=== PATIENT | female | born 1935 | race African-American/Black ===

== ENCOUNTER 2019-01-26 20:48 | Inpatient (IN) ==
[2019-01-26] MEDS ORDERED: Ipratropium/Albuterol Neb 3 ML IH ONE (21:14)
--- NOTE | 2019-01-26 21:14 | Emergency Department Note ---
Disposition Clinical Impression: Congestive heart failure Disposition: Admitted As Inpatient Condition: Fair General Adult HPI - General Chief complaint: ED Shortness of Breath/Dyspnea Stated complaint: CARMELA Time Seen by Provider: 01/26/19 20:57 Source: patient Limitations: no limitations - History of Present Illness Pain Scale: 0 - Related Data Home Medications Medication Instructions Recorded Confirmed Aspirin 81 mg PO DAILY 03/23/16 01/27/19 Clopidogrel [Plavix] 75 mg PO DAILY 03/23/16 03/23/16 Lansoprazole [Prevacid] 30 mg PO DAILY 03/23/16 01/27/19 Simvastatin [Zocor] 10 mg PO DAILY 03/23/16 01/27/19 Tizanidine HCl [Zanaflex] 2 mg PO HS 03/23/16 01/27/19 Allopurinol [Zyloprim 100 MG] 100 mg PO DAILY 01/27/19 01/27/19 B Complex W-C No.20/Folic Acid 1 mg PO DAILY 01/27/19 01/27/19 [Virt-Caps Softgel] Cholecalciferol (D-3) [Vitamin D] 1,000 unit PO DAILY 01/27/19 01/27/19 NIFEdipine XL (24 HR) [Procardia 60 mg PO DAILY 01/27/19 01/27/19 XL] Pregabalin [Lyrica] 50 mg PO DAILY 01/27/19 01/27/19 Sertraline [Zoloft] 50 mg PO DAILY 01/27/19 01/27/19 hydrALAZINE [HydrALAZINE] 25 mg PO DAILY 01/27/19 01/27/19 Allergies Allergy/AdvReac Type Severity Reaction Status Date / Time No Known Allergies Allergy Verified 01/27/19 15:29 Past Medical History - Past Medical History Medical history: Reports: arthritis, CVA, dialysis, hyperlipidemia, hypertension, renal disease Surgical history: Reports: hysterectomy Psychiatric history: Reports: no psych history - Social History Smoking Status: Never smoker Smokeless Tobacco Status: No Alcohol use: Reports: none Drug use: Reports: none Physical Exam - General Limitations: no limitations General appearance: alert Course Vital Signs Temperature 98.1 F 01/26/19 20:54 Pulse Rate 89 01/26/19 20:54 Respiratory Rate 28 01/26/19 20:54 Blood Pressure 106/61 01/26/19 20:54 O2 Sat by Pulse Oximetry 97 01/26/19 20:54 Temperature 98.9 F 01/28/19 12:34 Pulse Rate 76 01/28/19 14:00 Respiratory Rate 19 01/28/19 14:25 Blood Pressure 111/54 01/28/19 14:25 O2 Sat by Pulse Oximetry 98 01/28/19 14:25 Oxygen Delivery Oxygen Delivery Nasal Cannula Medical Decision Making - Lab Data Result diagrams: 01/28/19 11:50 01/28/19 03:30 Lab Results 01/26/19 01/26/19 01/26/19 Range/Units 22:30 22:30 22:30 WBC 20.7 H (4.3-11.1) K/mcL RBC 2.92 L (3.82-4.97) M/mcL Hgb 9.3 L (11.5-15.4) g/dL Hct 29.3 L (35.3-44.9) % MCV 100.3 H (83.0-100.0) fL MCH 31.8 (28.0-33.3) pg MCHC 31.7 (31.6-35.5) g/dL RDW 16.1 H (11.5-14.5) % Plt Count 299 (140-400) K/mcL MPV 10.6 (9.4-12.4) fL Immature Gran % 0.5 (0-4) % Seg Neutrophils % 87.5 % Lymphocytes % 5.6 % Monocytes % 5.8 % Eosinophils % 0.5 % Basophils % 0.1 % Neutrophils # 18.1 H (1.6-8.9) K/mcL Lymphocytes # 1.2 (0.6-4.6) K/mcL Monocytes # 1.2 (0.0-1.3) K/mcL Eosinophils # 0.1 (0.0-0.6) K/mcL Basophils # 0.0 (0.0-0.2) K/mcL PT INR APTT D-Dimer (0-500) ng/mLFEU Heparin Anti-Xa, Unfract Sodium 135 L (136-145) mEq/L Potassium 4.6 (3.5-5.1) mEq/L Chloride 94 L (98-107) mEq/L Carbon Dioxide 25 (23-29) mEq/L BUN 55 H (8-23) mg/dL Creatinine 6.01 H (0.60-1.20) mg/dL Est GFR ( Amer) 8 L (> 60) Est GFR (Non-Af Amer) 7 L (> 60) BUN/Creatinine Ratio 9 (6-26) Glucose 148 H (70-105) mg/dL Calculated Osmolality 298 (280-300) Calcium 9.4 (8.6-10.3) mg/dL Total Bilirubin 0.3 (0.3-1.0) mg/dL Direct Bilirubin 0.0 (0.0-0.2) mg/dL Indirect Bilirubin 0.3 (0.0-1.2) mg/dL AST 27 (13-39) Units/L ALT 11 (7-52) Units/L Alkaline Phosphatase 78 (34-104) Units/L Troponin I 1.43 H* (< 0.04) ng/mL B-Natriuretic Peptide (Less than 100) pg/mL Serum Total Protein 8.1 (6.4-8.9) g/dL Albumin 4.2 (3.5-5.7) g/dL Globulin 3.9 H (2.4-3.5) g/dL Albumin/Globulin Ratio 1.1 (1.1-2.2) Urine Color (Yellow) Urine Clarity (Clear) Urine pH (5.0-8.0) pH Units Ur Specific [place] (1.010-1.025) Urine Protein (Neg-Trace) mg/dL Urine Glucose (UA) (Normal) mg/dL Urine Ketones (Negative) mg/dL Urine Blood (Negative) Urine Nitrite (Negative) Urine Bilirubin (Negative) Urine Urobilinogen (Normal) mg/dL Ur Leukocyte Esterase (Negative) Urine Microscopic RBC (0-3) per hpf Urine Microscopic WBC (0-3) per hpf Ur Squamous Epith Cells (None-Few) per lpf Amorphous Sediment (Few) Urine Bacteria (None-Few) per hpf Hyaline Casts (None-Few) per lpf Urine Yeast Ur Culture Indicated? (NO) 01/26/19 01/26/19 01/26/19 Range/Units 22:30 22:30 23:45 WBC (4.3-11.1) K/mcL RBC (3.82-4.97) M/mcL Hgb (11.5-15.4) g/dL Hct (35.3-44.9) % MCV (83.0-100.0) fL MCH (28.0-33.3) pg MCHC (31.6-35.5) g/dL RDW (11.5-14.5) % Plt Count (140-400) K/mcL MPV (9.4-12.4) fL Immature Gran % (0-4) % Seg Neutrophils % % Lymphocytes % % Monocytes % % Eosinophils % % Basophils % % Neutrophils # (1.6-8.9) K/mcL Lymphocytes # (0.6-4.6) K/mcL Monocytes # (0.0-1.3) K/mcL Eosinophils # (0.0-0.6) K/mcL Basophils # (0.0-0.2) K/mcL PT Cancelled INR Cancelled APTT Cancelled D-Dimer 1340 H (0-500) ng/mLFEU Heparin Anti-Xa, Unfract Cancelled Sodium (136-145) mEq/L Potassium (3.5-5.1) mEq/L Chloride (98-107) mEq/L Carbon Dioxide (23-29) mEq/L BUN (8-23) mg/dL Creatinine (0.60-1.20) mg/dL Est GFR ( Amer) (> 60) Est GFR (Non-Af Amer) (> 60) BUN/Creatinine Ratio (6-26) Glucose (70-105) mg/dL Calculated Osmolality (280-300) Calcium (8.6-10.3) mg/dL Total Bilirubin (0.3-1.0) mg/dL Direct Bilirubin (0.0-0.2) mg/dL Indirect Bilirubin (0.0-1.2) mg/dL AST (13-39) Units/L ALT (7-52) Units/L Alkaline Phosphatase (34-104) Units/L Troponin I (< 0.04) ng/mL B-Natriuretic Peptide 1421 H (Less than 100) pg/mL Serum Total Protein (6.4-8.9) g/dL Albumin (3.5-5.7) g/dL Globulin (2.4-3.5) g/dL Albumin/Globulin Ratio (1.1-2.2) Urine Color Yellow (Yellow) Urine Clarity Hazy A (Clear) Urine pH 5.0 (5.0-8.0) pH Units Ur Specific [place] 1.024 (1.010-1.025) Urine Protein 100 H (Neg-Trace) mg/dL Urine Glucose (UA) Normal (Normal) mg/dL Urine Ketones Negative (Negative) mg/dL Urine Blood Negative (Negative) Urine Nitrite Negative (Negative) Urine Bilirubin Small H (Negative) Urine Urobilinogen Normal (Normal) mg/dL Ur Leukocyte Esterase Negative (Negative) Urine Microscopic RBC 0-3 (0-3) per hpf Urine Microscopic WBC 3-5 H (0-3) per hpf Ur Squamous Epith Cells Many H (None-Few) per lpf Amorphous Sediment Moderate H (Few) Urine Bacteria Many H (None-Few) per hpf Hyaline Casts Few (None-Few) per lpf Urine Yeast Test Not Performed Ur Culture Indicated? YES A (NO) 01/27/19 01/27/19 Range/Units 00:19 00:19 WBC 19.8 H (4.3-11.1) K/mcL RBC 2.72 L (3.82-4.97) M/mcL Hgb 8.8 L (11.5-15.4) g/dL Hct 27.5 L (35.3-44.9) % MCV 101.1 H (83.0-100.0) fL MCH 32.4 (28.0-33.3) pg MCHC 32.0 (31.6-35.5) g/dL RDW 16.1 H (11.5-14.5) % Plt Count 290 (140-400) K/mcL MPV 10.7 (9.4-12.4) fL Immature Gran % (0-4) % Seg Neutrophils % % Lymphocytes % % Monocytes % % Eosinophils % % Basophils % % Neutrophils # (1.6-8.9) K/mcL Lymphocytes # (0.6-4.6) K/mcL Monocytes # (0.0-1.3) K/mcL Eosinophils # (0.0-0.6) K/mcL Basophils # (0.0-0.2) K/mcL PT 11.9 INR 1.1 APTT 29.4 D-Dimer (0-500) ng/mLFEU Heparin Anti-Xa, Unfract 0.04 L Sodium (136-145) mEq/L Potassium (3.5-5.1) mEq/L Chloride (98-107) mEq/L Carbon Dioxide (23-29) mEq/L BUN (8-23) mg/dL Creatinine (0.60-1.20) mg/dL Est GFR ( Amer) (> 60) Est GFR (Non-Af Amer) (> 60) BUN/Creatinine Ratio (6-26) Glucose (70-105) mg/dL Calculated Osmolality (280-300) Calcium (8.6-10.3) mg/dL Total Bilirubin (0.3-1.0) mg/dL Direct Bilirubin (0.0-0.2) mg/dL Indirect Bilirubin (0.0-1.2) mg/dL AST (13-39) Units/L ALT (7-52) Units/L Alkaline Phosphatase (34-104) Units/L Troponin I (< 0.04) ng/mL B-Natriuretic Peptide (Less than 100) pg/mL Serum Total Protein (6.4-8.9) g/dL Albumin (3.5-5.7) g/dL Globulin (2.4-3.5) g/dL Albumin/Globulin Ratio (1.1-2.2) Urine Color (Yellow) Urine Clarity (Clear) Urine pH (5.0-8.0) pH Units Ur Specific [place] (1.010-1.025) Urine Protein (Neg-Trace) mg/dL Urine Glucose (UA) (Normal) mg/dL Urine Ketones (Negative) mg/dL Urine Blood (Negative) Urine Nitrite (Negative) Urine Bilirubin (Negative) Urine Urobilinogen (Normal) mg/dL Ur Leukocyte Esterase (Negative) Urine Microscopic RBC (0-3) per hpf Urine Microscopic WBC (0-3) per hpf Ur Squamous Epith Cells (None-Few) per lpf Amorphous Sediment (Few) Urine Bacteria (None-Few) per hpf Hyaline Casts (None-Few) per lpf Urine Yeast Ur Culture Indicated? (NO) Critical Care Time Critical Care Time: Yes Total Critical Care Time: 30 Attestation: The high probability of a clinically significant, sudden or life threatening deterioration of the [] system(s) required my full and direct attention, intervention and personal management. The aggregate critical care time was [] minutes. This time is in addition to time spent performing reported procedures but includes the following: [] Data Review and interpretation [] Patient assessment and monitoring of vital signs [] Documentation [] Medication orders and management Attestation Statement - Attestation Attestation: I reviewed the residents documentation and agree with the residents assessment and plan of care. I have personally had face to face time with the patient. (Brief History, Brief Exam, and MDM) I personally supervised and was present for the mathis/critical portions of the following procedures completed by the resident: (add procedures performed here). [id number] time provided Patient arrives in the care of family complaining of dyspnea. She appears in no acute distress at the time of my examination although she was hypoxic with a pulse ox in the 70s initially upon arrival. I attest to supervising resident physician attestation of the ECG
[2019-01-26] MEDS ORDERED: Furosemide 40 MG/4 ML VIAL IVP ONE (22:39)
[2019-01-26 22:40] LABS: Basophils % 0.1 %; Eosinophils # 0.1 K/mcL (0.0-0.6); Eosinophils % 0.5 %; Hematocrit 29.3 % (35.3-44.9); Hemoglobin 9.3 g/dL (11.5-15.4); Immature Granulocytes % 0.5 % (0-4); Lymphocytes # 1.2 K/mcL (0.6-4.6); Lymphocytes % 5.6 %; Mean Corpuscular HGB Conc 31.7 g/dL (31.6-35.5); Mean Corpuscular Hemoglobin 31.8 pg (28.0-33.3); Mean Corpuscular Volume 100.3 fL (83.0-100.0); Mean Platelet Volume 10.6 fL (9.4-12.4); Monocytes # 1.2 K/mcL (0.0-1.3); Monocytes % 5.8 %; Neutrophils # 18.1 K/mcL (1.6-8.9); Platelet Count 299 K/mcL (140-400); Red Blood Count 2.92 M/mcL (3.82-4.97); Red Cell Distribution Width 16.1 % (11.5-14.5); Segmented Neutrophils % 87.5 %
[2019-01-26 23:15] LABS: Albumin 4.2 g/dL (3.5-5.7); Albumin/Globulin Ratio 1.1 (1.1-2.2); Bilirubin,Indirect 0.3 mg/dL (0.0-1.2); Bilirubin,Total 0.3 mg/dL (0.3-1.0); Calcium 9.4 mg/dL (8.6-10.3); Globulin 3.9 g/dL (2.4-3.5); Potassium 4.6 mEq/L (3.5-5.1); Total Protein 8.1 g/dL (6.4-8.9)
--- NOTE | 2019-01-26 23:19 | Emergency Department Note ---
Disposition Clinical Impression: Congestive heart failure Qualifiers: Heart failure type: unspecified Heart failure chronicity: acute Qualified Code(s): I50.9 - Heart failure, unspecified Disposition: Admitted As Inpatient Condition: Fair Time of Disposition: 08:50 SOB HPI - General Chief Complaint: ED Shortness of Breath/Dyspnea Stated Complaint: CARMELA Time Seen by Provider: 01/26/19 20:57 Source: patient Limitations: no limitations Nursing Notes Reviewed: Yes Vital Signs Reviewed: Yes - History of Present Illness 83-year-old female 4 day history of shortness of breath Patient has past medical history of end-stage renal disease and prior stroke with left-sided deficit Patient Sunday dialysis schedule Patient's been extrinsic shortness of breath since Sunday She has had no fevers no chills, no chest pain, no abdominal pain no nausea no vomiting, no new neck or back pain, no hematuria or hematochezia, numbness or paresthesias. - Related Data Home Medications Medication Instructions Recorded Confirmed Aspirin 81 mg PO DAILY 03/23/16 01/27/19 Clopidogrel [Plavix] 75 mg PO DAILY 03/23/16 01/27/19 Lansoprazole [Prevacid] 30 mg PO TID 03/23/16 01/27/19 Simvastatin [Zocor] 10 mg PO DAILY 03/23/16 01/27/19 Tizanidine HCl [Zanaflex] 2 mg PO HS 03/23/16 01/27/19 Allopurinol [Zyloprim 100 MG] 100 mg PO DAILY 01/27/19 01/27/19 Gabapentin [Neurontin] 300 mg PO DAILY 01/27/19 01/27/19 NIFEdipine XL (24 HR) [Procardia 60 mg PO DAILY 01/27/19 01/27/19 XL] Vitamin D 01/27/19 hydrALAZINE [HydrALAZINE] 25 mg PO BID 01/27/19 01/27/19 Allergies Allergy/AdvReac Type Severity Reaction Status Date / Time No Known Allergies Allergy Verified 01/26/19 20:54 All systems ED: reviewed and negative except as stated. Review of Systems: As Per HPI Constitutional: Denies: fever, chills Cardiovascular: Denies: chest pain Respiratory: Reports: dyspnea Gastrointestinal: Denies: abdominal pain, nausea, vomiting, hematochezia Genitourinary: Denies: hematuria Musculoskeletal: Denies: back pain, neck pain Neurological: Denies: headache, weakness, numbness, paresthesias Past Medical History - Past Medical History Medical history: Reports: arthritis, CVA, dialysis, hyperlipidemia, hypertension, renal disease Surgical history: Reports: hysterectomy Psychiatric history: Reports: no psych history - Social History Smoking Status: Never smoker Smokeless Tobacco Status: No Alcohol use: Reports: none Drug use: Reports: none Physical Exam - General Limitations: no limitations General appearance: alert - Head Head exam: atraumatic, normocephalic, normal inspection - Eye Eye exam: Present: normal appearance, PERRL, EOMI. Absent: scleral icterus - Neck Neck exam: Present: normal inspection, trachea midline - Chest Chest inspection: Present: normal inspection, symmetric chest wall rise - Respiratory Respiratory exam: Present: normal lung sounds bilaterally (Patient without wheezes, rhonchi, or stridor to pulmonary auscultation, it is noted the patient with decreased volume of respirations.). Absent: respiratory distress, wheezes, stridor, accessory muscle use, prolonged expiratory phase - Cardiovascular Cardiovascular exam: Present: regular rate, normal rhythm, normal heart sounds, +S1, +S2. Absent: systolic murmur, diastolic murmur, JVD, +S3, +S4 - Abdominal Exam Abdominal exam: Present: soft, Non-Tender, normal bowel sounds. Absent: distention, guarding, rebound, rigidity, organomegaly - Extremities Exam Extremities exam: Present: normal inspection. Absent: pedal edema - Neurological Exam Neurological exam: Present: alert, oriented X3 - Psychiatric Psychiatric exam: Present: normal affect, normal mood - Skin Skin exam: Present: warm, dry, intact, normal color. Absent: rash, cyanosis, diaphoresis, erythema, pallor, mottled Course Course Narrative: Concern for CHF Chest x-ray, labs, BNP, troponin, EKG Urinalysis - Reevaluation(s) Reevaluation #1: Patient with x-ray findings consistent with CHF We will give Lasix at this time Reevaluation #2: Patient with elevated d-dimer, elevated troponin This is likely due to stress response in conjunction with severe renal disease We will speak with hospitalist medicine service about the possibility of anticoagulation with VQ scan performed in the morning. Vital Signs Temperature 98.1 F 01/26/19 20:54 Pulse Rate 89 05/05/19 20:54 Respiratory Rate 28 01/26/19 20:54 Blood Pressure 106/61 01/26/19 20:54 O2 Sat by Pulse Oximetry 97 01/26/19 20:54 Temperature 98.5 F 01/27/19 07:25 Pulse Rate 94 01/27/19 07:25 Respiratory Rate 18 01/27/19 07:49 Blood Pressure 122/45 01/27/19 07:25 O2 Sat by Pulse Oximetry 85 01/27/19 07:49 Oxygen Delivery Oxygen Delivery Nasal Cannula Shortness of Breath/Dyspnea - MDM Narrative Medical decision making narrative: Patient started on heparin after verifying no recent signs of bleed including; epistaxis, melana, hematuria, hematochezia, hemoptysis, hematemesis Patient admitted to hospitalist medicine service for further evaluation and management of CHF - Lab Data Lab results reviewed: Yes I reviewed the patient's lab results. Result diagrams: 01/27/19 00:19 01/26/19 22:30 Lab Results 01/26/19 01/26/19 01/26/19 Range/Units 22:30 22:30 22:30 WBC 20.7 H (4.3-11.1) K/mcL RBC 2.92 L (3.82-4.97) M/mcL Hgb 9.3 L (11.5-15.4) g/dL Hct 29.3 L (35.3-44.9) % MCV 100.3 H (83.0-100.0) fL MCH 31.8 (28.0-33.3) pg MCHC 31.7 (31.6-35.5) g/dL RDW 16.1 H (11.5-14.5) % Plt Count 299 (140-400) K/mcL MPV 10.6 (9.4-12.4) fL Immature Gran % 0.5 (0-4) % Seg Neutrophils % 87.5 % Lymphocytes % 5.6 % Monocytes % 5.8 % Eosinophils % 0.5 % Basophils % 0.1 % Neutrophils # 18.1 H (1.6-8.9) K/mcL Lymphocytes # 1.2 (0.6-4.6) K/mcL Monocytes # 1.2 (0.0-1.3) K/mcL Eosinophils # 0.1 (0.0-0.6) K/mcL Basophils # 0.0 (0.0-0.2) K/mcL PT INR APTT D-Dimer (0-500) ng/mLFEU Heparin Anti-Xa, Unfract Sodium 135 L (136-145) mEq/L Potassium 4.6 (3.5-5.1) mEq/L Chloride 94 L (98-107) mEq/L Carbon Dioxide 25 (23-29) mEq/L BUN 55 H (8-23) mg/dL Creatinine 6.01 H (0.60-1.20) mg/dL Est GFR ( Amer) 8 L (> 60) Est GFR (Non-Af Amer) 7 L (> 60) BUN/Creatinine Ratio 9 (6-26) Glucose 148 H (70-105) mg/dL Calculated Osmolality 298 (280-300) Calcium 9.4 (8.6-10.3) mg/dL Total Bilirubin 0.3 (0.3-1.0) mg/dL Direct Bilirubin 0.0 (0.0-0.2) mg/dL Indirect Bilirubin 0.3 (0.0-1.2) mg/dL AST 27 (13-39) Units/L ALT 11 (7-52) Units/L Alkaline Phosphatase 78 (34-104) Units/L Troponin I 1.43 H* (< 0.04) ng/mL B-Natriuretic Peptide (Less than 100) pg/mL Serum Total Protein 8.1 (6.4-8.9) g/dL Albumin 4.2 (3.5-5.7) g/dL Globulin 3.9 H (2.4-3.5) g/dL Albumin/Globulin Ratio 1.1 (1.1-2.2) Urine Color (Yellow) Urine Clarity (Clear) Urine pH (5.0-8.0) pH Units Ur Specific [place] (1.010-1.025) Urine Protein (Neg-Trace) mg/dL Urine Glucose (UA) (Normal) mg/dL Urine Ketones (Negative) mg/dL Urine Blood (Negative) Urine Nitrite (Negative) Urine Bilirubin (Negative) Urine Urobilinogen (Normal) mg/dL Ur Leukocyte Esterase (Negative) Urine Microscopic RBC (0-3) per hpf Urine Microscopic WBC (0-3) per hpf Ur Squamous Epith Cells (None-Few) per lpf Amorphous Sediment (Few) Urine Bacteria (None-Few) per hpf Hyaline Casts (None-Few) per lpf Urine Yeast Ur Culture Indicated? (NO) 01/26/19 01/26/19 01/26/19 Range/Units 22:30 22:30 23:45 WBC (4.3-11.1) K/mcL RBC (3.82-4.97) M/mcL Hgb (11.5-15.4) g/dL Hct (35.3-44.9) % MCV (83.0-100.0) fL MCH (28.0-33.3) pg MCHC (31.6-35.5) g/dL RDW (11.5-14.5) % Plt Count (140-400) K/mcL MPV (9.4-12.4) fL Immature Gran % (0-4) % Seg Neutrophils % % Lymphocytes % % Monocytes % % Eosinophils % % Basophils % % Neutrophils # (1.6-8.9) K/mcL Lymphocytes # (0.6-4.6) K/mcL Monocytes # (0.0-1.3) K/mcL Eosinophils # (0.0-0.6) K/mcL Basophils # (0.0-0.2) K/mcL PT Cancelled INR Cancelled APTT Cancelled D-Dimer 1340 H (0-500) ng/mLFEU Heparin Anti-Xa, Unfract Cancelled Sodium (136-145) mEq/L Potassium (3.5-5.1) mEq/L Chloride (98-107) mEq/L Carbon Dioxide (23-29) mEq/L BUN (8-23) mg/dL Creatinine (0.60-1.20) mg/dL Est GFR ( Amer) (> 60) Est GFR (Non-Af Amer) (> 60) BUN/Creatinine Ratio (6-26) Glucose (70-105) mg/dL Calculated Osmolality (280-300) Calcium (8.6-10.3) mg/dL Total Bilirubin (0.3-1.0) mg/dL Direct Bilirubin (0.0-0.2) mg/dL Indirect Bilirubin (0.0-1.2) mg/dL AST (13-39) Units/L ALT (7-52) Units/L Alkaline Phosphatase (34-104) Units/L Troponin I (< 0.04) ng/mL B-Natriuretic Peptide 1421 H (Less than 100) pg/mL Serum Total Protein (6.4-8.9) g/dL Albumin (3.5-5.7) g/dL Globulin (2.4-3.5) g/dL Albumin/Globulin Ratio (1.1-2.2) Urine Color Yellow (Yellow) Urine Clarity Hazy A (Clear) Urine pH 5.0 (5.0-8.0) pH Units Ur Specific [place] 1.024 (1.010-1.025) Urine Protein 100 H (Neg-Trace) mg/dL Urine Glucose (UA) Normal (Normal) mg/dL Urine Ketones Negative (Negative) mg/dL Urine Blood Negative (Negative) Urine Nitrite Negative (Negative) Urine Bilirubin Small H (Negative) Urine Urobilinogen Normal (Normal) mg/dL Ur Leukocyte Esterase Negative (Negative) Urine Microscopic RBC 0-3 (0-3) per hpf Urine Microscopic WBC 3-5 H (0-3) per hpf Ur Squamous Epith Cells Many H (None-Few) per lpf Amorphous Sediment Moderate H (Few) Urine Bacteria Many H (None-Few) per hpf Hyaline Casts Few (None-Few) per lpf Urine Yeast Test Not Performed Ur Culture Indicated? YES A (NO) 01/27/19 01/27/19 Range/Units 00:19 00:19 WBC 19.8 H (4.3-11.1) K/mcL RBC 2.72 L (3.82-4.97) M/mcL Hgb 8.8 L (11.5-15.4) g/dL Hct 27.5 L (35.3-44.9) % MCV 101.1 H (83.0-100.0) fL MCH 32.4 (28.0-33.3) pg MCHC 32.0 (31.6-35.5) g/dL RDW 16.1 H (11.5-14.5) % Plt Count 290 (140-400) K/mcL MPV 10.7 (9.4-12.4) fL Immature Gran % (0-4) % Seg Neutrophils % % Lymphocytes % % Monocytes % % Eosinophils % % Basophils % % Neutrophils # (1.6-8.9) K/mcL Lymphocytes # (0.6-4.6) K/mcL Monocytes # (0.0-1.3) K/mcL Eosinophils # (0.0-0.6) K/mcL Basophils # (0.0-0.2) K/mcL PT 11.9 INR 1.1 APTT 29.4 D-Dimer (0-500) ng/mLFEU Heparin Anti-Xa, Unfract 0.04 L Sodium (136-145) mEq/L Potassium (3.5-5.1) mEq/L Chloride (98-107) mEq/L Carbon Dioxide (23-29) mEq/L BUN (8-23) mg/dL Creatinine (0.60-1.20) mg/dL Est GFR ( Amer) (> 60) Est GFR (Non-Af Amer) (> 60) BUN/Creatinine Ratio (6-26) Glucose (70-105) mg/dL Calculated Osmolality (280-300) Calcium (8.6-10.3) mg/dL Total Bilirubin (0.3-1.0) mg/dL Direct Bilirubin (0.0-0.2) mg/dL Indirect Bilirubin (0.0-1.2) mg/dL AST (13-39) Units/L ALT (7-52) Units/L Alkaline Phosphatase (34-104) Units/L Troponin I (< 0.04) ng/mL B-Natriuretic Peptide (Less than 100) pg/mL Serum Total Protein (6.4-8.9) g/dL Albumin (3.5-5.7) g/dL Globulin (2.4-3.5) g/dL Albumin/Globulin Ratio (1.1-2.2) Urine Color (Yellow) Urine Clarity (Clear) Urine pH (5.0-8.0) pH Units Ur Specific [place] (1.010-1.025) Urine Protein (Neg-Trace) mg/dL Urine Glucose (UA) (Normal) mg/dL Urine Ketones (Negative) mg/dL Urine Blood (Negative) Urine Nitrite (Negative) Urine Bilirubin (Negative) Urine Urobilinogen (Normal) mg/dL Ur Leukocyte Esterase (Negative) Urine Microscopic RBC (0-3) per hpf Urine Microscopic WBC (0-3) per hpf Ur Squamous Epith Cells (None-Few) per lpf Amorphous Sediment (Few) Urine Bacteria (None-Few) per hpf Hyaline Casts (None-Few) per lpf Urine Yeast Ur Culture Indicated? (NO) - Radiology Data Radiology results reviewed: Yes I reviewed the patient's radiology results. Chest X-Ray 01/26/19 21:15 IMPRESSION: Findings suggest congestive heart failure. D/ / Jay Osorio MD / Jay Osorio MD Interpreting Provider: Jay Osorio MD - EKG Data EKG attestation: Yes I reviewed and interpreted this EKG. EKG results narrative: Patient EKG shows sinus rhythm with a heart rate of 83 bpm MT interval of 148 ms, QRS duration of 90 ms, QT/QTc interval 39/458 ms respectively. There are no significant ST segment elevations, depressions, pathologic Q waves, abnormal T- wave inversions, or any other signs of acute ischemic change. At this time there is no prior EKG available for comparison.
[2019-01-26] MEDS ORDERED: *HR* Heparin 5,000 UNIT/ML VIAL IVP PRN ×2 (23:37)
[2019-01-26] MEDS ORDERED: *HR* Heparin 5,000 UNIT/ML VIAL IVP ONE (23:37)
[2019-01-27 00:21] LABS: Bilirubin,Urine Small (Negative); Blood,Urine Negative (Negative); Color,Urine Yellow (Yellow); Glucose,Urine (UA) Normal (Normal); Ketones,Urine Negative (Negative); Leukocyte Esterase,Urine Negative (Negative); Nitrite,Urine Negative (Negative); Protein,Urine 100 mg/dL (Neg-Trace); Specific Gravity,Urine 1.024 (1.010-1.025); Urobilinogen,Urine Normal (Normal)
[2019-01-27 00:24] LABS: Hyaline Casts,Urine Few per lpf (None-Few); RBC,Urine 0-3 per hpf (0-3); Squamous Epithelial Cell,Urine Many per lpf (None-Few)
[2019-01-27 00:25] LABS: Clarity,Urine Hazy (Clear)
[2019-01-27] MEDS: Heparin 25,000 UNIT/250 ML D5W 25,000 UNIT/250 ML IV.SOLN IVC SCH (00:36)
[2019-01-27 00:37] LABS: Amorphous Sediment,Urine Moderate (Few)
[2019-01-27 00:38] LABS: Bacteria,Urine Many per hpf (None-Few)
[2019-01-27 00:46] LABS: Hematocrit 27.5 % (35.3-44.9); Hemoglobin 8.8 g/dL (11.5-15.4); Mean Corpuscular Hemoglobin 32.4 pg (28.0-33.3); Mean Corpuscular Volume 101.1 fL (83.0-100.0); Mean Platelet Volume 10.7 fL (9.4-12.4); Platelet Count 290 K/mcL (140-400); Red Blood Count 2.72 M/mcL (3.82-4.97); Red Cell Distribution Width 16.1 % (11.5-14.5)
[2019-01-27 00:52] LABS: Heparin anti-factor XA UFH 0.04 IU/mL (0.30-0.70); INR 1.1; Prothrombin Time 11.9 Seconds (9.4-12.1)
[2019-01-27 00:55] LABS: Activated Partial Thrombo Time 29.4 Seconds (26.0-36.0)
[2019-01-27] MEDS ORDERED: Naloxone 0.4 MG/ML INJ IVP PRN ×2 (05:23)
[2019-01-27] MEDS ORDERED: *HR* Morphine 2 MG/ML SYRINGE IVP PRN (05:23)
[2019-01-27] MEDS ORDERED: Albuterol 2.5 MG/3 ML NEBULIZER IH PRN (05:23)
[2019-01-27] MEDS ORDERED: Acetaminophen 325 MG TABLET PO PRN (05:23)
[2019-01-27] MEDS ORDERED: Nitroglycerin 0.4 MG TAB.SUBL SL PRN (05:23)
[2019-01-27] MEDS ORDERED: Ondansetron 4 MG/2 ML VIAL IVP PRN (05:23)
--- NOTE | 2019-01-27 05:46 | Internal Med History&Physical ---
Date of Encounter: 01/27/19 Time of Encounter: 04:20 Internal Medicine - H&P: HPI Chief complaint: SOB; chest heaviness Admitted From: Emergency Dept Plans for Post Hospital Care: Home History of present illness: Ms. Waggoner is a 83 year old female who presents with a 5 day history of shortness of breath, chest heaviness, dry cough, and subjective fevers over last 24 hours. She therefore came to the ER tonight with her family for concerns of above symptoms. Workup in the ER revealed the patient to have a troponin elevation, nonspecific EKG changes, and chest x-ray suspicious for CHF. She is a dialysis patient on a Sunday schedule. She makes very little urine. She was therefore admitted to hospitalist service with consultation to nephrology for ongoing care and treatment of her suspected CHF. Upon my assessment of the patient, she denies any weight gain, lower extremity edema, or any swelling to her abdomen and chest. She does complain of significant worsening of her dyspnea. She also has had dry cough, questionable/subjective fevers. She is not able to bring up much significant purulent sputum. She denies any prior history of heart failure. She denies any recent known ill contacts. I discussed CODE STATUS with patient and family, and she requests to be full code. Past Med Surg Social Fam HX - Past Medical History Attestation: Yes The following information was validated with the patient. Source: patient, old records reviewed, obtained from family Medical history: arthritis, CVA, dialysis, hyperlipidemia, hypertension, renal disease Psychiatric history: no psych history - Past Surgical History Surgical History: hysterectomy - Social History Smoking Status: Never smoker Smokeless Tobacco Status: No Alcohol use: none Drug use: none Current living situation: Home - Independent Activity Level: Independent ambulation Recent Out of Country Travel Within the Last 8 Weeks: No - Family History Mother History Unknown: Yes Father History Unknown: Yes Internal Medicine - H&P: Meds Aspirin 81 mg PO DAILY 03/23/16 [History] Clopidogrel [Plavix] 75 mg PO DAILY 03/23/16 [History] Lansoprazole [Prevacid] 30 mg PO TID 03/23/16 [History] Simvastatin [Zocor] 10 mg PO DAILY 03/23/16 [History] Tizanidine HCl [Zanaflex] 2 mg PO HS 03/23/16 [History] Allopurinol [Zyloprim 100 MG] 100 mg PO DAILY 01/27/19 [History] Gabapentin [Neurontin] 300 mg PO DAILY 01/27/19 [History] NIFEdipine XL (24 HR) [Procardia XL] 60 mg PO DAILY 01/27/19 [History] Vitamin D 01/27/19 [History] hydrALAZINE [HydrALAZINE] 25 mg PO BID 01/27/19 [History] Allergy/AdvReac Type Severity Reaction Status Date / Time No Known Allergies Allergy Verified 01/26/19 20:54 - Constitutional Constitutional: fatigue, fever(s), weakness, no chills, no night sweats - EENT Eyes: no blurry vision, no change in vision Ears: no ear pain, no tinnitus Nose, mouth and throat: no nasal congestion, no sinus pressure, no sore throat - Cardiovascular Cardiovascular ROS IM: chest pain, dyspnea, dyspnea on exertion, no edema, no lightheadedness, no paroxysmal nocturnal dyspnea, no syncope - Respiratory Respiratory: cough, dyspnea, dyspnea on exertion, chest congestion, pain with cough, no hemoptysis, no wheezing, no excessive phlegm production, no change in phlegm color - Gastrointestinal Gastrointestinal: no abdominal pain, no diarrhea, no hematemesis, no hematochezia, no melena, no nausea, no vomiting - Genitourinary Genitourinary: no dysuria, no flank pain, no hematuria Additional comments: patient makes very little urine - Musculoskeletal Musculoskeletal ROS IM: no arthralgias, no back pain - Integumentary Integumentary IM: no rash, no jaundice - Neurological Neurological ROS: no disequilibrium, no dizziness, no focal weakness, no frequ ent falls, no headache(s) - Psychiatric Psychiatric: no anxiety, no depression - Endocrine Endocrine IM: no cold intolerance, no heat intolerance, no polydipsia, no polyphagia, no polyuria - Hematologic/Lymphatic Hematologic/Lymphatic: easy bruising - Allergic/Immunologic Allergic/Immunologic: no wheezing, no GI upset with certain foods - Constitutional Vitals: Temp Pulse Resp BP Pulse Ox 98.1 F 85 17 138/70 89 01/27/19 01:17 01/27/19 01:17 01/27/19 01:17 01/27/19 01:17 01/27/19 01:17 General appearance: Present: cooperative, pleasant, no acute distress, answers questions appropriately Exam: currently chest pain free and minimal SOB now; does not appear to be fluid overloaded -- appears euvolemic - Head Head exam: Present: atraumatic, normal inspection - Eye Eye exam: Present: EOMI, PERRL. Absent: scleral icterus Pupils: Present: normal accommodation - ENT ENT exam: Present: mucous membranes dry, normal exam, normal oropharynx - Neck Neck exam general surgery: Present: full ROM, supple, trachea midline. Absent: lymphadenopathy, tenderness, nuchal rigidity, thyromegaly - Respiratory Respiratory exam: Present: rales (R>L base ). Absent: chest wall tenderness, prolonged expiratory phase, respiratory distress, rhonchi, wheezes, tachypnea - Cardiovascular Cardiovascular exam: Present: distant heart sounds, RRR, +S1, +S2, systolic murmur. Absent: diastolic murmur - GI/Abdominal GI/Abdominal exam: Present: normal bowel sounds, soft. Absent: guarding, hepatomegaly, mass, rebound, splenomegaly, tenderness - Extremities Exam Extremities exam: Present: full ROM, normal capillary refill, warm, radial pulses palpable and symmetrical. Absent: calf tenderness, pedal edema, tenderness - Back Exam Back exam: Absent: CVA tenderness (L), CVA tenderness (R) - Neurological Exam Neurological exam: Present: alert, CN II-XII intact, oriented X3, no focal deficits - Psychiatric Psychiatric exam: Present: normal affect, normal mood - Skin Skin exam: Present: dry, intact, warm Internal Med - H&P Results - Labs CBC & Chem 7: 01/27/19 00:19 01/26/19 22:30 Labs: Short CBC 01/26/19 01/27/19 Range/Units 22:30 00:19 WBC 20.7 H 19.8 H (4.3-11.1) K/mcL Hgb 9.3 L 8.8 L (11.5-15.4) g/dL Hct 29.3 L 27.5 L (35.3-44.9) % Plt Count 299 290 (140-400) K/mcL Neutrophils # 18.1 H (1.6-8.9) K/mcL BMP 01/26/19 22:30 Sodium 135 L Potassium 4.6 Chloride 94 L Carbon Dioxide 25 BUN 55 H Creatinine 6.01 H Glucose 148 H Calcium 9.4 Cardiac Enzymes 01/26/19 Range/Units 22:30 Troponin I 1.43 H* (< 0.04) ng/mL Liver Function 01/26/19 Range/Units 22:30 Total Bilirubin 0.3 (0.3-1.0) mg/dL Direct Bilirubin 0.0 (0.0-0.2) mg/dL AST 27 (13-39) Units/L ALT 11 (7-52) Units/L Alkaline Phosphatase 78 (34-104) Units/L Albumin 4.2 (3.5-5.7) g/dL Urine 01/26/19 Range/Units 23:45 Urine Color Yellow (Yellow) Urine Clarity Hazy A (Clear) Urine pH 5.0 (5.0-8.0) pH Units Ur Specific [place] 1.024 (1.010-1.025) Urine Protein 100 H (Neg-Trace) mg/dL Urine Glucose (UA) Normal (Normal) mg/dL - Impressions ITS Impressions Chest X-Ray 01/26/19 21:15 IMPRESSION: Findings suggest congestive heart failure. D/ / Jay Osorio MD / Jay Osorio MD Interpreting Provider: Jay Osorio MD - Diagnostic Studies Chest x-ray Status: image reviewed by me (suggestive of CHF but also concerning for mutli- focal infiltrates) - Assessment and Plan (1) Pneumonia Current Visit: Yes Status: Suspected Assessment and plan: 1. Blood and sputum cultures ordered. 2. Rocephin and Zithromax ordered. In addition, I ordered Vancomycin given the multifocal process. 3. Oxygen as needed for support. 4. Patient appears euvolemic and does not appear in CHF clinically. Given symptoms, WBC, CXR findings, and exam findings, I am more concerned about pneumonia. Qualifiers: Pneumonia type: due to unspecified organism Laterality: bilateral Lung location: unspecified part of lung Qualified Code(s): J18.9 - Pneumonia, unspecified organism (2) NSTEMI (non-ST elevated myocardial infarction) Current Visit: Yes Status: Acute Assessment and plan: 1. I am unable to find EKG from ER. 2. Will trend EKG's, Troponins, and monitor on telemetry. 3. Currently CP free. 4. Will order SL NTG and IV Morphine PRN CP. 5. Continue ASA, Plavix , STATIN, and add low dose BB. 6. Will order ECHO. 7. Heparin drip per protocol. 8. Consult cardiology. (3) ESRD (end stage renal disease) on dialysis Current Visit: Yes Status: Chronic Assessment and plan: 1. Consult nephrology for HD needs and fluid balance. (4) Hypertension Current Visit: Yes Status: Chronic Assessment and plan: 1. Resume home meds as appropriate. 2. Monitor BP and adjust meds as necessary. Qualifiers: Hypertension type: essential hypertension Qualified Code(s): I10 - Essential (primary) hypertension (5) DVT prophylaxis Current Visit: Yes Status: Acute Assessment and plan: 1. Heparin SQ.
[2019-01-27] MEDS: cefTRIAXone 2,000 MG in Water for inj. (sterile) 20 ML 20 ML IVP SCH (06:01)
[2019-01-27] MEDS: Azithromycin 500 MG in D5% in Water 250 ML IVPB SCH (06:02)
[2019-01-27] MEDS: Gabapentin 300 MG CAPSULE PO SCH (08:01)
[2019-01-27] MEDS: Aspirin 81 MG TAB.CHEW PO SCH (08:02)
[2019-01-27 08:35] LABS: ABG Base Excess 2 mEq/L (-2 to 3); ABG HCO3 27 mEq/L (21-27); ABG Oxygen Saturation 96 % (95-98); ABG PCO2 46 mmHg (35-45); ABG PH 7.38 pH Units (7.32-7.45); ABG PO2 81 mmHg (85-104); ABG TCO2 29 mEq/L (20-26)
[2019-01-27] MEDS ORDERED: 0.9 % Sodium Chloride 2,000 ML ONE (08:35)
[2019-01-27] MEDS ORDERED: Aminoglycoside Consult 1 EACH MC ONE ×2 (08:36→13:39)
[2019-01-27] MEDS ORDERED: Furosemide 40 MG/4 ML VIAL IVP ONE (08:44)
[2019-01-27] MEDS ORDERED: *HR* Heparin 10,000 UNIT/10 ML VIAL IV PRN (09:01)
[2019-01-27] MEDS ORDERED: 0.9 % Sodium Chloride 250 ML IVC PRN (09:01)
[2019-01-27] MEDS ORDERED: 0.9 % Sodium Chloride 1,000 ML PRIME SCH (09:15)
--- NOTE | 2019-01-27 09:38 | Electrocardiograph Report ---
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
[2019-01-27 09:41] LABS: Calcium 8.9 mg/dL (8.6-10.3); Potassium 4.5 mEq/L (3.5-5.1)
--- NOTE | 2019-01-27 09:41 | Electrocardiograph Report ---
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
--- NOTE | 2019-01-27 09:44 | Electrocardiograph Report ---
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
[2019-01-27 10:25] LABS: Hepatitis B Surface Antibody 233.43 mIU/mL
--- NOTE | 2019-01-27 10:33 | Internal Med Progress Note ---
Hospitalist Progress Note - Encounter Date of Encounter: 01/27/19 Time of Encounter: 10:26 - Subjective Interval History: Per nurse, pt was having increased work of breathing this am and using accessory muscles. Pt also reported having chest pain which was relieved by one time dose of nitro SL. Family member at bedside. She denies fever, chills, N/V or diarrhea. She denies abdominal pain. - Exam Vitals: Temp Pulse Resp BP Pulse Ox 98.5 F 94 18 122/45 85 01/27/19 07:25 01/27/19 07:25 01/27/19 07:49 01/27/19 07:25 01/27/19 07:49 Exam: General appearance: Present: cooperative, pleasant, mild to moderate acute distress, answers questions appropriately currently chest pain free but appears to be fluid overloaded. Head exam: Present: atraumatic, normal inspection Eye exam: Present: EOMI, PERRL. Absent: scleral icterus Pupils: Present: normal accommodation ENT exam: Present: mucous membranes dry, normal exam, normal oropharynx Neck exam general surgery: Present: full ROM, supple, trachea midline. Absent: lymphadenopathy, tenderness, nuchal rigidity, thyromegaly Respiratory exam: Present: rales (R>L base ). Positive tachypnea. Absent: chest wall tenderness, prolonged expiratory phase, rhonchi, wheezes Cardiovascular exam: Present: distant heart sounds, RRR but tachy, +S1, +S2, systolic murmur. Absent: diastolic murmur GI/Abdominal exam: Present: normal bowel sounds, soft. Absent: guarding, hepatomegaly, mass, rebound, splenomegaly, tenderness Extremities exam: Present: full ROM, normal capillary refill, warm, radial pulses palpable and symmetrical. Absent: calf tenderness, pedal edema, tenderness Back exam: Absent: CVA tenderness (L), CVA tenderness (R) Neurological exam: Present: alert, CN II-XII intact, oriented X3, no focal deficits Psychiatric exam: Present: normal affect, normal mood Skin exam: Present: dry, intact, warm - Assessment and Plan (1) Acute respiratory distress Current Visit: Yes Status: Acute Assessment and Plan: Pt was using accessory muscles and + tachynea this am. Placed on Non-rebreather. ABG PH 7.38, pCO2 46, PO2 81, O2 saturation 96% on NRB. Pt is on room air at baseline. Will reassess resp status following HD and fluid removal (2) Pneumonia Current Visit: Yes Status: Suspected Assessment and Plan: Continue Rocephin and Zithromax ordered. WBC trending down already. Continue on oxygen as needed for support. Patient noted to appear euvolemic on admission but currently appears to be volume overloaded this am. Will send MRSA swab, if neg will DC vancomycin. (3) NSTEMI (non-ST elevated myocardial infarction) Current Visit: Yes Status: Acute Assessment and Plan: Troponin on admission 1.43 and pt started on Heparin for NSEMI. Troponin done this am due to pt c/o of CP and bumped to 1.80. Cardiology notified of troponin results and consulted to see. Continue ASA, Plavix , STATIN, and add low dose BB. Echo ordered. Continue on Heparin drip per protocol. Continue SL NTG PRN but hold IV Morphine PRN due to SOB. (4) Acute exacerbation of CHF (congestive heart failure) Current Visit: Yes Status: Acute Assessment and Plan: Presen on admission. Pt did get Lasix 40 mg IV x one 01/26/19 but onl voided 100cc per nurse. Discussed with nephrology and planing to dialyze pt this am. Pt typically gets HD MWF and sees Dr. Fox out pt. Echo ordered and awaiting results. Cardiology aware and will see pt in consult. STAT chest x ray this am showing worsening b/l pulm edema. XR/XR chest 1V portable IMPRESSION: Worsening mild to moderate interstitial pulmonary edema and bilateral pleural effusions suggesting worsening CHF. (5) ESRD (end stage renal disease) on dialysis Current Visit: Yes Status: Chronic Assessment and Plan: Consulted nephrology for HD needs and fluid balance. Pt already getting HD this am. HD MWF and sees Dr. Fox (6) Hypertension Current Visit: Yes Status: Chronic Assessment and Plan: 1. Resume home meds as appropriate. 2. Monitor BP and adjust Hydralazine and Metoprolol. (7) Hyponatremia Current Visit: Yes Status: Acute Assessment and Plan: Will monitor Na levels function closely. DVT Prophylaxis: Heparin SQ - Summary of Assessment and Plan Summary of Assessment and Plan: History of present illness: Jefferson Young Ms. Waggoner is a 83 year old female who presents with a 5 day history of shortness of breath, chest heaviness, dry cough, and subjective fevers over last 24 hours. She therefore came to the ER tonight with her family for concerns of above symptoms. Workup in the ER revealed the patient to have a troponin elevation, nonspecific EKG changes, and chest x-ray suspicious for CHF. She is a dialysis patient on a Sunday schedule. She makes very little urine. She was therefore admitted to hospitalist service with consultation to nephrology for ongoing care and treatment of her suspected CHF. Upon my assessment of the patient, she denies any weight gain, lower extremity edema, or any swelling to her abdomen and chest. She does complain of significant worsening of her dyspnea. She also has had dry cough, que stionable/subjective fevers. She is not able to bring up much significant purulent sputum. She denies any prior history of heart failure. She denies any recent known ill contacts. I discussed CODE STATUS with patient and family, and she requests to be full code. - Time Spent with Patient Total time spent is greater than 50% in coordination of care (as documented) at patient's floor/unit and/or counseling patient: less than 15 minutes Plan of Care Discussed with: patient Internal Medicine: Result - Labs CBC & Chem 7: 01/27/19 00:19 01/27/19 09:04 Labs: Short CBC 01/26/19 01/27/19 Range/Units 22:30 00:19 WBC 20.7 H 19.8 H (4.3-11.1) K/mcL Hgb 9.3 L 8.8 L (11.5-15.4) g/dL Hct 29.3 L 27.5 L (35.3-44.9) % Plt Count 299 290 (140-400) K/mcL Neutrophils # 18.1 H (1.6-8.9) K/mcL BMP 01/26/19 01/27/19 22:30 09:04 Sodium 135 L 131 L Potassium 4.6 4.5 Chloride 94 L 94 L Carbon Dioxide 25 26 BUN 55 H 61 H Creatinine 6.01 H 6.81 H Glucose 148 H 174 H Calcium 9.4 8.9 Cardiac Enzymes 01/26/19 01/27/19 Range/Units 22:30 09:04 Troponin I 1.43 H* 1.80 H* (< 0.04) ng/mL Liver Function 01/26/19 Range/Units 22:30 Total Bilirubin 0.3 (0.3-1.0) mg/dL Direct Bilirubin 0.0 (0.0-0.2) mg/dL AST 27 (13-39) Units/L ALT 11 (7-52) Units/L Alkaline Phosphatase 78 (34-104) Units/L Albumin 4.2 (3.5-5.7) g/dL Urine 01/26/19 Range/Units 23:45 Urine Color Yellow (Yellow) Urine Clarity Hazy A (Clear) Urine pH 5.0 (5.0-8.0) pH Units Ur Specific [place] 1.024 (1.010-1.025) Urine Protein 100 H (Neg-Trace) mg/dL Urine Glucose (UA) Normal (Normal) mg/dL - ABG Interpretation ABG results: ABG ABG pH 7.38 pH Units (7.32-7.45) 01/27/19 08:32 ABG pCO2 46 mmHg (35-45) H 01/27/19 08:32 ABG pO2 81 mmHg (85-104) L 01/27/19 08:32 ABG O2 Saturation 96 % (95-98) 01/27/19 08:32 PT/INR, D-dimer PT 11.9 Seconds (9.4-12.1) 01/27/19 00:19 1340 ng/mLFEU (0-500) H 01/26/19 22:30 - Impressions Impressions Chest X-Ray 01/26/19 21:15 IMPRESSION: Findings suggest congestive heart failure. D/ / Jay Osorio MD / Jay Osorio MD Interpreting Provider: Jay Osorio MD Chest X-Ray 01/27/19 08:04 IMPRESSION: Worsening mild to moderate interstitial pulmonary edema and bilateral pleural effusions suggesting worsening CHF. D/ / Luis Rodriguez MD / Luis Rodriguez MD Interpreting Provider: Luis Rodriguez MD Consult Discharge Plan - Plan Referrals: Mohit Cullen MD [Primary Care Provider] - (2) Pneumonia Qualifiers: Pneumonia type: due to unspecified organism Laterality: bilateral Lung lo cation: unspecified part of lung Qualified Code(s): J18.9 - Pneumonia, unspecified organism (6) Hypertension Qualifiers: Hypertension type: essential hypertension Qualified Code(s): I10 - Essential (primary) hypertension
[2019-01-27 10:36] LABS: Hepatitis B Surface Antigen Nonreactive (Nonreactive)
[2019-01-27] MEDS ORDERED: *HR* Norepinephrine 4 MG/4 ML VIAL IVC ONE (10:55)
[2019-01-27] MEDS ORDERED: D5% in Water 250 ML IV BAG IV ONE (10:55)
[2019-01-27 11:58] LABS: Adenovirus Not Detected (Not Detect); Bordetella Pertussis Not Detected (Not Detect); Chlamydophila pneumoniae Not Detected (Not Detect); Coronavirus 229E Not Detected (Not Detect); Coronavirus HKU1 Not Detected (Not Detect); Coronavirus NL63 Not Detected (Not Detect); Coronavirus OC43 Not Detected (Not Detect); Human Metapneumovirus Not Detected (Not Detect); Human Rhinovirus/Enterovirus Not Detected (Not Detect); Influenza A Subtype 2009 H1 Not Detected (Not Detect); Influenza A Untypeable Not Detected (Not Detect); Influenza B Not Detected (Not Detect); Mycoplasma pneumoniae Not Detected (Not Detect); Parainfluenza Virus 1 Not Detected (Not Detect); Parainfluenza Virus 2 Not Detected (Not Detect); Parainfluenza Virus 3 Not Detected (Not Detect); Parainfluenza Virus 4 Not Detected (Not Detect); Respiratory Syncytial Virus Not Detected (Not Detect)
--- NOTE | 2019-01-27 14:00 | Nephrology Consult Note ---
Date of Encounter: 01/27/19 Time of Encounter: 13:00 Assessment and Plan (1) ESRD (end stage renal disease) on dialysis Current Visit: Yes Status: Chronic - Hgb below acceptable range. Recommend iron workup. - Resume HD treatments with ultrafiltration as tolerated. - Renal diet. - Fluid restrictions. - Resume renal related home meds. (2) Acute exacerbation of CHF (congestive heart failure) Current Visit: Yes Status: Acute secondary to CHF exacerbation and PNA. Pt did get Lasix 40 mg IV x one 01/26/19 but only voided 100cc per nurse. CXR shows Worsening mild to moderate interstitial pulmonary edema and bilateral pleural effusions suggesting worsening CHF. - Patient to be resuming HD today. Qualifiers: Heart failure type: unspecified Qualified Code(s): I50.9 - Heart failure, unspecified (3) NSTEMI (non-ST elevated myocardial infarction) Current Visit: Yes Status: Acute Troponin on admission 1.43 and pt started on Heparin for NSEMI. Troponin done this am due to pt c/o of CP and bumped to 1.80. - On ASA, Plavix , STATIN, and add low dose BB. - Echo pending. - On Heparin drip per protocol. (4) Hypertension Current Visit: Yes Status: Chronic BP controlled. On home meds: low dose metoprolol. - Monitor BP and adjust Hydralazine and Metoprolol. Qualifiers: Hypertension type: essential hypertension Qualified Code(s): I10 - Essential (primary) hypertension (5) Hyponatremia Current Visit: Yes Status: Acute Corrected sodium at 132. Likely secondary to fluid overload. History of Present Illness - Reason for Consult Consult date: 01/27/19 - Chief Complaint Chest pain, SOB - History of Present Illness Mr. Nguyen is a 71 year old male with a past medical history of flow CVA, gout, chronic sciatica, CKD, alcoholic cirrhosis of liver, CHF, A. fib on Coumadin, COPD PTSD, sleep apnea, T2DM, hypertension, OA is a transfer patient from [place] because of concerns for Bactrim allergy. He was recently discharged from the [place] [facility] where he was getting treated for CHF and questionable bilateral cellulitis infection. Patient was placed on Bactrim DS. Patient has a known a history of allergy to sulfa drugs. Was brought in to the ER after developing pruritus over his body as well confusion. Upon presentation to the [place] ER, patient did not appear to be confused. Workup in the ER at [facility] showed that patient was afebrile and hemodynamicaly stable. Was found to have 3+ pitting edema with venous stasis ulceration and blistering of the bilateral lower extremities. No respiratory distress or concerns for severe anaphylactic reaction. His blood chemistry showed that his Hb was 10.1, PT of 47.8, was hyperkalemic with K- 6.5, BUN 93, creatinine 3.67, with a GFR of 16. EKG did not show any peaked T waves, had slight widening of QRS complexes at 115ms, and was in A. fib with heart rate of 53 bpm, with a QT/QTc: 467/439. Patient was given insulin and D50 in the ED along with calcium gluconate and was admitted to the floor for further management. Nephrology was consulted for worsening renal function. When seen today, patient denied any chest pain, SOB, nausea, vomiting, abdominal pain, cough or fever. She denied any LE swelling. Patient says that she sees marketing project specialist Dr. Kimbrough and goes to dialysis [facility] and has been compliant w ith it. Past Med Surg Social Fam HX - Past Medical History Medical history: arthritis, CVA, dialysis, hyperlipidemia, hypertension, renal disease Psychiatric history: no psych history - Past Surgical History Surgical History: hysterectomy - Social History Smoking Status: Never smoker Smokeless Tobacco Status: No Alcohol use: none Drug use: none - Family History Mother History Unknown: Yes Father History Unknown: Yes Medications and Allergies Aspirin 81 mg PO DAILY 03/23/16 [History] Clopidogrel [Plavix] 75 mg PO DAILY 03/23/16 [History] Lansoprazole [Prevacid] 30 mg PO DAILY 03/23/16 [History] Simvastatin [Zocor] 10 mg PO DAILY 03/23/16 [History] Tizanidine HCl [Zanaflex] 2 mg PO HS 03/23/16 [History] Allopurinol [Zyloprim 100 MG] 100 mg PO DAILY 01/27/19 [History] B Complex W-C No.20/Folic Acid [Virt-Caps Softgel] 1 mg PO DAILY 01/27/19 [History] Cholecalciferol (D-3) [Vitamin D] 1,000 unit PO DAILY 01/27/19 [History] NIFEdipine XL (24 HR) [Procardia XL] 60 mg PO DAILY 01/27/19 [History] Pregabalin [Lyrica] 50 mg PO DAILY 01/27/19 [History] Sertraline [Zoloft] 50 mg PO DAILY 01/27/19 [History] hydrALAZINE [HydrALAZINE] 25 mg PO DAILY 01/27/19 [History] Allergy/AdvReac Type Severity Reaction Status Date / Time No Known Allergies Allergy Verified 01/27/19 15:29 Review of Systems Constitutional: no fever(s), no headache(s) Nose, mouth and throat: no headache(s) Cardiovascular: no chest pain, no chest pain at rest, no chest pain with activity, no dyspnea, no edema, no leg edema, no lightheadedness, no pedal edema Respiratory: no cough, no dyspnea, no wheezing Gastrointestinal: no abdominal pain, no nausea, no vomiting Musculoskeletal: no muscle weakness, no numbness Integumentary: no hirsutism, no striae Neurological: no dizziness, no headache(s), no weakness Exam - Vital Signs Vital signs: Initial Vital Signs Temp Pulse Resp BP Pulse Ox 98.1 F 89 28 106/61 97 01/26/19 20:54 01/26/19 20:54 01/26/19 20:54 01/26/19 20:54 01/26/19 20:54 Vital Signs - Last 8 Hours Temp Pulse Resp BP Pulse Ox 01/27/19 07:49 18 85 01/27/19 07:25 98.5 F 94 18 122/45 Intake and Output 01/26/19 01/27/19 01/27/19 23:59 07:59 15:59 Intake Total 20 / 97.4 77.4 / 97.4 Output Total 200 / 200 Balance -180 / -102.6 77.4 / -102.6 Intake: IV Fluids 20 / 97.4 77.4 / 97.4 Heparin 25,000 UNIT/250 ML D5W 77.4 / 77.4 25,000 unit In 250 ml @ 14 UNIT /KG/HR 8.573 mls/hr IVC .Q24H [facility] Rx#:[id number] Rocephin 2,000 MG In Water for inj. (sterile) 20 ML @ 600 mls/ hr IVP Q24H [facility] Rx#:[id number] Oral 0 / 0 Output: Urine 200 / 200 Other: Meal npo Percent of Meal Consumed 0% Weight 61.235 kg - General Appearance General appearance: well-developed, well-nourished, appears started age EENT: mucous membranes moist Neck: no JVD Respiratory: clear Cardiology: no murmurs, no rub, no gallops, no edema, regular rate, regular rhyt hm, normal S1, normal S2 Gastrointestinal: normoactive bowel sounds, no tenderness, no guarding, no organomegaly, no masses Integumentary: no rash, warm and dry Neurologic: no focal deficit Musculoskeletal: no deformities, no erythema, no cyanosis, no clubbing Psychiatric: mood/affect appropriate, cooperative Results - Lab Results 01/27/19 00:19 01/27/19 09:04 Most recent lab results 01/27/19 01/27/19 08:32 09:04 ABG pH 7.38 ABG pCO2 46 H ABG pO2 81 L ABG HCO3 27 ABG O2 Saturation 96 Calcium 8.9 Consult Discharge Plan - Plan Referrals: Mohit uCllen MD [Primary Care Provider] -
[2019-01-27] MEDS: hydrALAZINE 25 MG TABLET PO SCH ×2 (14:03→21:34)
--- NOTE | 2019-01-27 16:26 | Cardiology Consult Note ---
<Michelle Freitas - Last Filed: 01/27/19 16:19> Date of Encounter: 01/27/19 Time of Encounter: 14:00 Assessment and Plan (1) NSTEMI (non-ST elevated myocardial infarction) Current Visit: Yes Status: Acute Per cardiology: -Troponins 1.4, 1.8, 1.83. -ECG with no acute ischemic changes. -TTE pending. 2013 LVEF 60%. -Reports mild chest discomfort. -On asa, plavix, statin, BB, heparin drip. -Continue heparin drip. Will add imdur for chest discomfort. Can use PRN nitro and nitro drip if needed for chest pain. -Plan for LHC when able. Currenlty respiratory status would not allow for LHC, patient sitting straight up in bed, on non-rebreather mask. Would not tolerate laying flat. -Continue to trend troponins until down trending. -Will continue to monitor. (2) Congestive heart failure Current Visit: Yes Status: Acute Per cardiology: -Chest x-ray with CHF and repeat with worsening CHF. -ESRD on HD. Reports makes little urine. -TTE pending. -Strict i/os, fluid restriction, low sodium diet, daily weights. -Volume management per nephrology, unsure if lasix would be of benefit with little urine output. Qualifiers: Heart failure type: unspecified Heart failure chronicity: acute Qualified Code(s): I50.9 - Heart failure, unspecified (3) Pneumonia Current Visit: Yes Status: Suspected Per cardiology: -Being treated for PNA, WBC 19. -Management per primary service. Qualifiers: Pneumonia type: due to unspecified organism Laterality: bilateral Lung location: unspecified part of lung Qualified Code(s): J18.9 - Pneumonia, unspecified organism Discussion w patient/family: The assessment and plan as outlined above was discussed with the patient and/or family members who expressed understanding and agreement. All questions were answered. Thank you for involving us in the care of your patient. Please call with any questions. Discussed and reviewed with . History of Present Illness Consult date: 01/27/19 Requesting physician: Jefferson Diggs Consult reason: elevated troponin Chief complaint: shortness of breath History of present illness: Ms. Waggoner is a 83 year old female with a relevant past medical history of ESRD on HD, HTN, CVA, HLD, anemia, depression, GERD, who presented to [facility] with comp laints of shortness of breath. Patient states symptoms started a few weeks ago, when she started just not feeling well. Patient states last Sunday, she became very short of breath and had some chest tightness. Patient then decided to seek treatment after several days of shortness of breath. Currently patient sitting straight up in bed, on non-rebreather mask. Patient currently reports 2/10 chest tightness without radiation. Denies diaphoresis or nausea. Past Med Surg Social Fam HX - Past Medical History Attestation: Yes The following information was validated with the patient. Source: patient, old records reviewed Medical history: arthritis, CVA, dialysis, hyperlipidemia, hypertension, renal disease Psychiatric history: no psych history - Past Surgical History Surgical History: hysterectomy - Social History Smoking Status: Never smoker Smokeless Tobacco Status: No Alcohol use: none Drug use: none - Family History Mother History Unknown: Yes Father History Unknown: Yes Medications and Allergies Aspirin 81 mg PO DAILY 03/23/16 [History] Clopidogrel [Plavix] 75 mg PO DAILY 03/23/16 [History] Lansoprazole [Prevacid] 30 mg PO DAILY 03/23/16 [History] Simvastatin [Zocor] 10 mg PO DAILY 03/23/16 [History] Tizanidine HCl [Zanaflex] 2 mg PO HS 03/23/16 [History] Allopurinol [Zyloprim 100 MG] 100 mg PO DAILY 01/27/19 [History] B Complex W-C No.20/Folic Acid [Virt-Caps Softgel] 1 mg PO DAILY 01/27/19 [History] Cholecalciferol (D-3) [Vitamin D] 1,000 unit PO DAILY 01/27/19 [History] NIFEdipine XL (24 HR) [Procardia XL] 60 mg PO DAILY 01/27/19 [History] Pregabalin [Lyrica] 50 mg PO DAILY 01/27/19 [History] Sertraline [Zoloft] 50 mg PO DAILY 01/27/19 [History] hydrALAZINE [HydrALAZINE] 25 mg PO DAILY 01/27/19 [History] Allergy/AdvReac Type Severity Reaction Status Date / Time No Known Allergies Allergy Verified 01/27/19 15:29 All Systems Review: The remainder of the systems were reviewed and are negative - Cardiovascular Cardiovascular: as per HPI, chest pain at rest, dyspnea at rest, dyspnea on exertion Physical Examination Vital Signs Temperature 98.1 F 01/26/19 20:54 Pulse Rate 89 01/26/19 20:54 Respiratory Rate 28 01/26/19 20:54 Blood Pressure 106/61 01/26/19 20:54 O2 Sat by Pulse Oximetry 97 01/26/19 20:54 Temperature 98.5 F 01/27/19 07:25 Pulse Rate 94 01/27/19 07:25 Respiratory Rate 18 01/27/19 07:49 Blood Pressure 122/45 01/27/19 07:25 O2 Sat by Pulse Oximetry 85 01/27/19 07:49 Oxygen Delivery Oxygen Delivery Nasal Cannula General: Conversant, Other (Mild conversational dyspnea noted. ) HEENT: Atraumatic, Normocephaly, Mucus Membranes Moist Neck: No JVD, Normal carotid pulses Cardiac: Reg Rate and Rhythm, Normal S1 and S2, No Murmur Lungs: Other (Lung sounds diminished throughout. ) Neuro: Alert and responsive, No focal deficits noted Abdomen: Soft, Non-Tender Skin: No rashes noted on visualized skin Musculoskeletal: No Chest Wall Tenderness Extremities: No Clubbing, No Cyanosis, No Edema, Normal Pulses Results 01/27/19 00:19 01/27/19 09:04 Lab Results 01/26/19 01/26/19 01/26/19 22:30 22:30 22:30 WBC 20.7 H Hgb 9.3 L Hct 29.3 L Plt Count 299 INR APTT D-Dimer Sodium 135 L Potassium 4.6 Chloride 94 L Carbon Dioxide 25 BUN 55 H Creatinine 6.01 H Glucose 148 H Calcium 9.4 Total Bilirubin 0.3 AST 27 ALT 11 Alkaline Phosphatase 78 Troponin I 1.43 H* B-Natriuretic Peptide Impressions Chest X-Ray 01/26/19 21:15 IMPRESSION: Findings suggest congestive heart failure. D/ / Jay Osorio MD / Jay Osorio MD Interpreting Provider: Jay Osorio MD Chest X-Ray 01/27/19 08:04 IMPRESSION: Worsening mild to moderate interstitial pulmonary edema and bilateral pleural effusions suggesting worsening CHF. D/ / Luis Rodriguez MD / Luis Rodriguez MD Interpreting Provider: Luis Rodriguez MD Active Medications Acetaminophen (Tylenol) 650 mg PO Q6HR PRN PRN Reason: Mild Pain/Fever Stop: 07/29/19 05:24 Albuterol Sulfate (Proventil Neb) 2.5 mg IH [id number] PRN; Protocol PRN Reason: Shortness Of Breath/Wheezing Stop: 07/29/19 05:24 Last Admin: 01/27/19 07:48 Dose: 2.5 mg Documented by: Allopurinol (Zyloprim) 100 mg PO DAILY [facility] Stop: 07/29/19 09:01 Last Admin: 01/27/19 08:01 Dose: 100 mg Documented by: Aspirin (Aspirin) 81 mg PO DAILY [facility] Stop: 07/29/19 09:01 Last Admin: 01/27/19 08:02 Dose: 81 mg Documented by: Clopidogrel Bisulfate (Plavix) 75 mg PO DAILY [facility] Stop: 07/29/19 09:01 Last Admin: 01/27/19 08:03 Dose: 75 mg Documented by: Gabapentin (Neurontin) 300 mg PO DAILY [facility] Stop: 07/29/19 09:01 Last Admin: 01/27/19 08:01 Dose: 300 mg Documented by: Heparin Sodium (Porcine) (Heparin) 4,300 unit 70 unit/kg (4300 unit) IVP Q6HR PRN PRN Reason: SEE COMMENTS Stop: 07/28/19 23:38 Heparin Sodium (Porcine) (Heparin) 2,100 unit 35 unit/kg (2100 unit) IVP Q6H PRN PRN Reason: SEE COMMENTS Stop: 07/28/19 23:38 Heparin Sodium (Porcine) (Heparin) 4,000 unit IV ONCE PRN PRN Reason: heparin load Hydralazine HCl (Hydralazine) 25 mg PO BID [facility] Stop: 07/29/19 09:01 Last Admin: 01/27/19 14:03 Dose: Not Given Documented by: Heparin Sodium/Dextrose (Heparin 25,000 Unit/250 Ml D5w) 25,000 unit in 250 mls @ 8.573 mls/hr IVC .Q24H [facility]; Protocol Stop: 07/28/19 23:46 Last Titration: 01/27/19 15:38 Dose: 0 unit/kg/hr, 0 mls/hr Documented by: Azithromycin 500 mg/ Dextrose 250 mls @ 252 mls/hr IVPB Q24H [facility] Stop: 07/29/19 06:01 Last Admin: 01/27/19 06:02 Dose: 252 mls/hr Documented by: Ceftriaxone Sodium 2,000 mg/ (Sterile Water) 20 mls @ 600 mls/hr IVP Q24H [facility] Stop: 07/29/19 06:01 Last Infusion: 01/27/19 06:11 Dose: Infused Documented by: Sodium Chloride (0.9 % Sodium Chloride) 250 mls @ 937.5 mls/hr IVC .Q16M PRN PRN Reason: Hypotension Stop: 07/29/19 09:02 Sodium Chloride (0.9 % Sodium Chloride) 1,000 mls @ 0 mls/hr PRIME .Q0M [facility] Stop: 07/29/19 09:16 Metoprolol Tartrate (Lopressor) 12.5 mg PO BID [facility] Stop: 07/29/19 09:01 Last Admin: 01/27/19 08:00 Dose: 12.5 mg Documented by: Naloxone HCl (Narcan) 0.4 mg IVP Q2MPRN PRN PRN Reason: SEE COMMENTS Stop: 07/29/19 05:24 Nitroglycerin (Nitroglycerin) 0.4 mg SL Q5MPRN PRN PRN Reason: Chest Pain Stop: 07/29/19 05:24 Last Admin: 01/27/19 07:46 Dose: 0.4 mg Documented by: Omeprazole (Prilosec) 20 mg PO BIDAC [facility]; Protocol Stop: 07/29/19 07:31 Last Admin: 01/27/19 08:01 Dose: 20 mg Documented by: Ondansetron HCl (Zofran) 4 mg IVP Q8HR PRN PRN Reason: Nausea And Vomiting Stop: 07/29/19 05:24 Last Admin: 01/27/19 07:59 Dose: 4 mg Documented by: Simvastatin (Zocor) 10 mg PO HS [facility] Stop: 07/29/19 21:01 Tizanidine HCl (Zanaflex) 2 mg PO HS [facility] Stop: 07/29/19 21:01 Laboratory Tests 01/26/19 01/26/19 01/27/19 22:30 22:30 00:19 WBC 19.8 H Hgb 8.8 L Creatinine Troponin I 1.43 H* B-Natriuretic Peptide 1421 H 01/27/19 01/27/19 01/27/19 09:04 09:04 14:55 WBC Hgb Creatinine 6.81 H Troponin I 1.80 H* 1.83 H* B-Natriuretic Peptide - Imaging and Cardiology Chest Xray: report reviewed Echo: pending - EKG Interpretation EKG results cardiology: personally reviewed (ECG with SR, HR 92. Non-specific ST abnormalities noted.), other (Telemetry reviewed with average HR previous 12 hours noted to be 88, SR. PVCs and PACs noted.) Consult Discharge Plan - Plan Referrals: Mohit Cullen MD [Primary Care Provider] - <Marsha Mancia - Last Filed: 01/28/19 12:24> Date of Encounter: 01/28/19 - Attending Attestation I examined this patient and my medical decision-making was reviewed with the INSPECTOR FLOOR. I agree with the documented findings, disposition and treatment plan as described. Patient presents with NSTEMI. ECG without acute changes. TTE pending. Patient unable to lay flat. Consider LHC when stable. Assessment and Plan Discussion w patient/family: The assessment and plan as outlined above was discussed with the patient and/or family members who expressed understanding and agreement. All questions were answered. Thank you for involving us in the care of your patient. Please call with any questions. History of Present Illness History of present illness: Ms. Waggoner is a 83 year old female All Systems Review: The remainder of the systems were reviewed and are negative Physical Examination Vital Signs, Last 4 Hours Temp Pulse Resp BP Pulse Ox 01/27/19 16:37 99.3 F 85 18 124/64 98 Results 01/28/19 03:30 01/28/19 03:30 Lab Results 01/26/19 01/26/19 01/26/19 22:30 22:30 22:30 WBC 20.7 H Hgb 9.3 L Hct 29.3 L Plt Count 299 INR APTT D-Dimer Sodium 135 L Potassium 4.6 Chloride 94 L Carbon Dioxide 25 BUN 55 H Creatinine 6.01 H Glucose 148 H Calcium 9.4 Total Bilirubin 0.3 AST 27 ALT 11 Alkaline Phosphatase 78 Troponin I 1.43 H* B-Natriuretic Peptide 01/26/19 01/26/19 01/27/19 22:30 22:30 00:19 WBC 19.8 H Hgb 8.8 L Hct 27.5 L Plt Count 290 INR Cancelled APTT Cancelled D-Dimer 1340 H Sodium Potassium Chloride Carbon Dioxide BUN Creatinine Glucose Calcium Total Bilirubin AST ALT Alkaline Phosphatase Troponin I B-Natriuretic Peptide 1421 H 01/27/19 01/27/19 01/27/19 00:19 09:04 09:04 WBC Hgb Hct Plt Count INR 1.1 APTT 29.4 D-Dimer Sodium 131 L Potassium 4.5 Chloride 94 L Carbon Dioxide 26 BUN 61 H Creatinine 6.81 H Glucose 174 H Calcium 8.9 Total Bilirubin AST ALT Alkaline Phosphatase Troponin I 1.80 H* B-Natriuretic Peptide 01/27/19 14:55 WBC Hgb Hct Plt Count INR APTT D-Dimer Sodium Potassium Chloride Carbon Dioxide BUN Creatinine Glucose Calcium Total Bilirubin AST ALT Alkaline Phosphatase Troponin I 1.83 H* B-Natriuretic Peptide
[2019-01-27] MEDS: Isosorbide MONOnitrate (24 HR) 30 MG TAB.ER.24H PO SCH (17:33)
[2019-01-27] MEDS: tiZANidine 4 MG TABLET PO SCH (21:37)
[2019-01-27 22:51] LABS: ABG Base Excess 6 mEq/L (-2 to 3); ABG HCO3 30 mEq/L (21-27); ABG Oxygen Saturation 98 % (95-98); ABG PCO2 42 mmHg (35-45); ABG PH 7.46 pH Units (7.32-7.45); ABG PO2 105 mmHg (85-104); ABG TCO2 31 mEq/L (20-26)
[2019-01-27] MEDS: Norepinephrine 4 MG in D5% in Water 250 ML IVC SCH (23:55)
[2019-01-28 00:05] LABS: INR 1.2; Prothrombin Time 13.5 Seconds (9.4-12.1)
[2019-01-28 00:06] LABS: Heparin anti-factor XA UFH 0.34 IU/mL (0.30-0.70)
[2019-01-28 00:10] LABS: Basophils % 0.1 %; Eosinophils # 0.4 K/mcL (0.0-0.6); Eosinophils % 3.8 %; Hematocrit 22.1 % (35.3-44.9); Immature Granulocytes % 0.5 % (0-4); Lymphocytes # 0.9 K/mcL (0.6-4.6); Lymphocytes % 8.8 %; Mean Corpuscular HGB Conc 31.2 g/dL (31.6-35.5); Mean Corpuscular Hemoglobin 32.2 pg (28.0-33.3); Mean Corpuscular Volume 103.3 fL (83.0-100.0); Mean Platelet Volume 10.8 fL (9.4-12.4); Monocytes # 0.5 K/mcL (0.0-1.3); Monocytes % 4.5 %; Neutrophils # 8.1 K/mcL (1.6-8.9); Nucleated Red Blood Cells 0.2 /100 WBC (0); Platelet Count 218 K/mcL (140-400); Red Blood Count 2.14 M/mcL (3.82-4.97); Red Cell Distribution Width 15.9 % (11.5-14.5); Segmented Neutrophils % 82.3 %
[2019-01-28 00:13] LABS: Activated Partial Thrombo Time 44.3 Seconds (26.0-36.0); Hemoglobin 6.9 g/dL (11.5-15.4)
[2019-01-28 00:31] LABS: Troponin I 1.61 ng/mL (< 0.04)
[2019-01-28 00:40] LABS: Albumin/Globulin Ratio 1.2 (1.1-2.2); Bilirubin,Total 0.3 mg/dL (0.3-1.0); Calcium 7.2 mg/dL (8.6-10.3); Chol/HDL Ratio 2.5 (0-4.9); Globulin 2.6 g/dL (2.4-3.5); Magnesium 1.9 mg/dL (1.6-2.6); Phosphorous 3.9 mg/dL (2.7-4.5); Potassium 4.6 mEq/L (3.5-5.1); Total Protein 5.6 g/dL (6.4-8.9)
[2019-01-28] MEDS ORDERED: Artificial Tears SOLN 15 ML BOTTLE BOTH EYES PRN (00:41)
--- NOTE | 2019-01-28 01:21 | Event Note ---
Date of Encounter: 01/27/19 Time of Encounter: 22:40 RAPID RESPONSE NOTE: I responded to a rapid response called on this patient. Upon arrival to the bedside, patient was unresponsive, hypocapneic, hypotensive, and borderline bradycardic. I asked respiratory therapy to proceed with bag mask ventilation. She had no response to pupillary reflex, corneal reflex, and gag reflex. We administered Narcan without effect. Blood pressure was running 60s to 70s systolic over palp. I ordered fluid bolus followed by dopamine infusion to maintain hemodynamic stability. Because of lack ability to protect her airway, I requested respiratory therapy to proceed with intubation. At that point, she did develop a subtle gag reflex. Unfortunately, respiratory therapy was unable to secure an airway. I then proceeded to attempt to intubate her myself. Using a Glidescope, I was able to visualize her vocal cords and secured a 7.5 ET tube on the first attempt. At that point, the ET tube was secured and she was ventilated by respiratory therapy. Blood pressure remain low despite the fluid bolus and dopamine infusion. I therefore decided and proceeded to place a right femoral CVC emergently. I prepped her right groin area in sterile fashion using chlorhexidine prep. Using a 16 cm Arrows triple-lumen catheter kit, I used Seldinger technique to emergently place a CVC. This was not a properly sterilized field and/or sterile technique as this was an emergency and time was of the essence. I was able to successfully place a CVC and all 3 ports were aspirated of blood and flushed with normal saline. At that point, we started Levophed infusion as well as dopamine infusion. I also asked the nursing staff to stop the heparin drip as I was concerned about internal bleeding. We moved her to the ICU to stabilize her hemodynamically and from a respiratory standpoint. Once stabilized in ICU, I requested that we obtain STAT CT of the head, chest, and abdomen to rule out any internal bleeding. We did draw labs during the rapid response and noted that she had a significant hemoglobin drop from 9.3 to 6.9. Troponin was slightly elevated at 1.61, but it is trending down from her prior levels earlier today. On exam, patient remains on ventilator and has maintained hemodynamic stability at this time. Other than the gag reflex during intubation, she has minimal response. Bilateral breath sounds are auscultated. Cardiac auscultation reveals S1 and S2 with grade 1 murmur. Abdomen is soft and benign. Extremities reveal cool extremities with thready pulses. Impression/plan: 1. Respiratory failure: Status post intubation; we will continue to ventilate her with mechanical ventilation, consult critical care medicine for ongoing ventilatory management. 2. Shock: High suspicion of internal bleeding given the clinical presentation and hemoglobin drop with hemodynamic instability. I ordered stat type and screen, blood transfusions. STAT CT of the head, chest, and abdomen to rule out any internal bleeding. IV fluids, dopamine, Levophed as necessary to maintain hemodynamic stability and a MAP greater than 65. 3. Pneumonia: Continue antibiotics and resume vancomycin given the nonsterile, emergently placed CVC. 4. Vascular access issues: Recommend removing femoral CVC once a sterile CVC can be placed in the neck or chest and patient maintains hemodynamic stability. Please note that a total of 69 minutes critical care time was spent with patient thus far including intubation, CVC placement, reviewing labs, and images.
[2019-01-28] MEDS: Pantoprazole 40 MG VIAL IVP SCH (01:29)
[2019-01-28 01:47] LABS: ABG Base Excess -1 mEq/L (-2 to 3); ABG HCO3 24 mEq/L (21-27); ABG Oxygen Saturation 98 % (95-98); ABG PCO2 43 mmHg (35-45); ABG PH 7.36 pH Units (7.32-7.45); ABG PO2 105 mmHg (85-104); ABG TCO2 26 mEq/L (20-26); Blood Gas Modality ASSIST CONTROL; Blood Gas PEEP 5 cm H2O; Blood Gas Respiration Rate 12; Blood Gas VT 450 cc
[2019-01-28] MEDS ORDERED: 0.9 % Sodium Chloride 250 ML ONE ×2 (02:37→05:33)
[2019-01-28] MEDS: Norepinephrine 4 MG in D5% in Water 250 ML IVC SCH (04:30)
[2019-01-28] MEDS: Artificial Tears SOLN 15 ML BOTTLE BOTH EYES SCH ×5 (04:41→20:22)
[2019-01-28] MEDS: cefTRIAXone 2,000 MG in Water for inj. (sterile) 20 ML 20 ML IVP SCH (04:43)
[2019-01-28] MEDS: Azithromycin 500 MG in D5% in Water 250 ML IVPB SCH (04:46)
[2019-01-28 05:37] LABS: ABG Base Excess 0 mEq/L (-2 to 3); ABG HCO3 25 mEq/L (21-27); ABG Oxygen Saturation 96 % (95-98); ABG PCO2 43 mmHg (35-45); ABG PH 7.38 pH Units (7.32-7.45); ABG PO2 82 mmHg (85-104); ABG TCO2 27 mEq/L (20-26); Blood Gas Modality ASSIST CONTROL; Blood Gas PEEP 5 cm H2O; Blood Gas Respiration Rate 12; Blood Gas VT 450 cc
[2019-01-28 06:12] LABS: Basophils % 0.2 %; Eosinophils # 0.3 K/mcL (0.0-0.6); Eosinophils % 1.6 %; Hematocrit 24.3 % (35.3-44.9); Hemoglobin 7.7 g/dL (11.5-15.4); Immature Granulocytes % 0.6 % (0-4); Lymphocytes # 0.9 K/mcL (0.6-4.6); Lymphocytes % 4.8 %; Mean Corpuscular HGB Conc 31.7 g/dL (31.6-35.5); Mean Corpuscular Hemoglobin 32.9 pg (28.0-33.3); Mean Corpuscular Volume 103.8 fL (83.0-100.0); Monocytes # 0.9 K/mcL (0.0-1.3); Monocytes % 5.1 %; Neutrophils # 15.5 K/mcL (1.6-8.9); Platelet Count 264 K/mcL (140-400); Red Blood Count 2.34 M/mcL (3.82-4.97); Red Cell Distribution Width 15.9 % (11.5-14.5); Segmented Neutrophils % 87.7 %
[2019-01-28 06:19] LABS: Calcium 8.2 mg/dL (8.6-10.3); Potassium 4.4 mEq/L (3.5-5.1)
[2019-01-28] MEDS ORDERED: *HR* Etomidate 20 MG/10 ML AMPUL IVP ONE (07:44)
[2019-01-28] MEDS ORDERED: *HR* Midazolam HCl 5 MG/5 ML VIAL IVP ONE (07:44)
--- NOTE | 2019-01-28 07:58 | Pulmonology Consult Note ---
<Marcus Jamison - Last Filed: 01/28/19 12:49> Date of Encounter: 01/28/19 Time of Encounter: 07:58 Assessment and Plan (1) Acute respiratory failure with hypoxia and hypercapnia Current Visit: Yes Status: Acute -Intubated 01/28/19 during rapid -New onset heart failure vs pneumonia -Concern of aspiration pneumonia during rapid -Will stop vanc and ceftriaxone and start zosyn today -CXR 01/28/19: Worsening pulm edema, improving L basilar atelectasis or pneumonia with stable RUL airspace disease -Leukocytosis increased to 17.7 from 9.9 -Failed CPAP trial today with apnea -Continue to wean vent for extubation (2) Acute exacerbation of CHF (congestive heart failure) Current Visit: Yes Status: Acute -Admitted with dyspnea -Pulm edema on cxr -Received bokus IVF at rapid response for hypotension prior to intubation -Pulm edema worse today -Cards evaluated yesterday and recommended fluid and Na restriction -Diuretics questioned as does not make much urine 2/2 ESRD -TTE 01/28/19: EF 45-50%, mod lv diastolic dysfunction, normal RV, severe PH, mod MR and TR, mild and AR, small pericardial effusion Qualifiers: Heart failure type: diastolic Qualified Code(s): I50.33 - Acute on chronic diastolic (congestive) heart failure (3) NSTEMI (non-ST elevated myocardial infarction) Current Visit: Yes Status: Acute -Chest pain at admission -Trop 1.43, 1.8, 1.83, 1.81, 1.61 -EKG without acute ischemia -Heparin stopped overnight for concern of acute bleed with hgb drop from 9.3 to 6.9 which received 2 units PRBC (4) ESRD (end stage renal disease) on dialysis Current Visit: Yes Status: Chronic -HD MWF -Cr 6.01 and BUN 55 on arrival -Cr 4.07 and BUN 30 today after HD yesterday -UOP minimal at 200 last 24 hrs (5) Hypotension Current Visit: Yes Status: Acute -Hypotensive during rapid overnight -Dopamine and NE started overnight -NE stopped today and weaning off dopamine as BP and HR remaining stable -R femoral central line placed emergently in nonsterile fashion and will need removed as soon as dopamine weaned off Qualifiers: Hypotension type: unspecified hypotension type Qualified Code(s): I95.9 - Hypotension, unspecified History of Present Illness Consult date: 01/28/19 Requesting physician: Jefferson Diggs Reason for consult: other (resp failure) Chief complaint: dyspnea History of present illness: 83 year old female with pmh significant for ESRD on HD, HTN, HLD, and prior CVA who initially presented after 5 days of dyspnea, chest heaviness, and non productive cough. She was found to have elevated troponin, nonspecific EKG changes and cxr concerning for CHF within the ED and was admitted for evaluation for CHF and pneumonia treatment. Repeat cxr with worsening bilateral edema which cardiology evaluated and has TTE pending along with fluid restriction. Overnight resp status declined requiring 10L O2, and eventually become unresponsive. Was given fluid bolus and dopamine started for bradycardia and hypotension and then intubated and R femoral central line placed. Labs drawing during rapid showed hgb drop from 9.3 to 6.[address] of head, chest, abd/plv were un revealing and no bleeding noted to account for hgb drop. Since arrival in ICU she has been stable. Past Med Surg Social Fam HX - Past Medical History Medical history: arthritis, CVA, dialysis, hyperlipidemia, hypertension, renal disease Psychiatric history: no psych history - Past Surgical History Surgical History: hysterectomy - Social History Smoking Status: Never smoker Smokeless Tobacco Status: No Alcohol use: none Drug use: none - Family History Mother History Unknown: Yes Father History Unknown: Yes Medications and Allergies Aspirin 81 mg PO DAILY 03/23/16 [History] Clopidogrel [Plavix] 75 mg PO DAILY 03/23/16 [History] Lansoprazole [Prevacid] 30 mg PO DAILY 03/23/16 [History] Simvastatin [Zocor] 10 mg PO DAILY 03/23/16 [History] Tizanidine HCl [Zanaflex] 2 mg PO HS 03/23/16 [History] Allopurinol [Zyloprim 100 MG] 100 mg PO DAILY 01/27/19 [History] B Complex W-C No.20/Folic Acid [Virt-Caps Softgel] 1 mg PO DAILY 01/27/19 [History] Cholecalciferol (D-3) [Vitamin D] 1,000 unit PO DAILY 01/27/19 [History] NIFEdipine XL (24 HR) [Procardia XL] 60 mg PO DAILY 01/27/19 [History] Pregabalin [Lyrica] 50 mg PO DAILY 01/27/19 [History] Sertraline [Zoloft] 50 mg PO DAILY 01/27/19 [History] hydrALAZINE [HydrALAZINE] 25 mg PO DAILY 01/27/19 [History] Allergy/AdvReac Type Severity Reaction Status Date / Time No Known Allergies Allergy Verified 01/27/19 15:29 ROS unobtainable: due to endotracheal tube All Systems: The remainder of the systems were reviewed and are negative Physical Examination Vital Signs: Vital Signs, Last 4 Hours Temp Pulse Resp BP Pulse Ox 01/28/19 06:00 96.0 F L 85 12 124/75 100 01/28/19 05:52 96.0 F L 85 12 141/75 100 01/28/19 05:46 96.0 F L 86 12 96/63 100 01/28/19 05:33 12 96/63 98 01/28/19 05:20 96 F L 76 12 57/36 98 01/28/19 05:00 60 12 60/38 98 01/28/19 04:00 75 12 116/62 100 General appearance: no acute distress, other (intubated and sedated) Eyes: nonicteric ENT: oropharynx dry Neck: supple Auscultation: bilateral: other (on vent with equal and decreased breath sounds ) Cardiovascular: regular rate and rhythm Gastrointestinal: hypoactive bowel sounds, soft, non-tender, non-distended Integumentary: normal Extremities: no cyanosis, no edema, pink and warm, pulses normal Musculoskeletal: other (decreased muscle bulk bilat LE) other (intubated and sedated ) other (sedated) Ventilator Settings Ventilator Settings: Ventilator Settings, Last 8 Hours Ventilator Tidal Volume 450 Setting Ventilator Tidal Volume 450 Setting Ventilator Tidal Volume 450 Setting Ventilator Tidal Volume 450 Setting Ventilator Tidal Volume 450 Setting Ventilator Tidal Volume 450 Setting Ventilator Tidal Volume 450 Setting Ventilator Tidal Volume 450 Setting Ventilator Tidal Volume 450 Setting Ventilator Tidal Volume 450 Setting Ventilator Tidal Volume 450 Setting Ventilator Tidal Volume 450 Setting Ventilator Tidal Volume 450 Setting Ventilator Tidal Volume 450 Setting Ventilator Respiratory Rate 12 Setting Ventilator Respiratory Rate 12 Setting Ventilator Respiratory Rate 12 Setting Ventilator Respiratory Rate 12 Setting Ventilator Respiratory Rate 12 Setting Ventilator Respiratory Rate 12 Setting Ventilator Respiratory Rate 12 Setting Ventilator Respiratory Rate 12 Setting Ventilator Respiratory Rate 12 Setting Ventilator Respiratory Rate 12 Setting Ventilator Respiratory Rate 12 Setting Ventilator Respiratory Rate 12 Setting Ventilator Respiratory Rate 12 Setting Ventilator Respiratory Rate 12 Setting Actual Respiratory Rate 12 Actual Respiratory Rate 12 Actual Respiratory Rate 12 Actual Respiratory Rate 12 Actual Respiratory Rate 12 Actual Respiratory Rate 12 Actual Respiratory Rate 12 Actual Respiratory Rate 12 Actual Respiratory Rate 12 Actual Respiratory Rate 12 Actual Respiratory Rate 12 Actual Respiratory Rate 12 Positive End Expiratory 5 Pressure Positive End Expiratory 5 Pressure Positive End Expiratory 5 Pressure Positive End Expiratory 5 Pressure Positive End Expiratory 5 Pressure Positive End Expiratory 5 Pressure Positive End Expiratory 5 Pressure Positive End Expiratory 5 Pressure Positive End Expiratory 5 Pressure Positive End Expiratory 5 Pressure Positive End Expiratory 5 Pressure Positive End Expiratory 5 Pressure Positive End Expiratory 5 Pressure Positive End Expiratory 5 Pressure Peak Inspiratory Airway 33 Pressure Peak Inspiratory Airway 29 Pressure Peak Inspiratory Airway 25 Pressure Peak Inspiratory Airway 27 Pressure Peak Inspiratory Airway 35 Pressure Peak Inspiratory Airway 27 Pressure Peak Inspiratory Airway 29 Pressure Peak Inspiratory Airway 33 Pressure Peak Inspiratory Airway 34 Pressure Peak Inspiratory Airway 32 Pressure Peak Inspiratory Airway 32 Pressure Peak Inspiratory Airway 29 Pressure Results - Laboratory Findings CBC and BMP: 01/28/19 11:50 01/28/19 03:30 ABG ABG pH 7.38 pH Units (7.32-7.45) 01/28/19 05:33 ABG pCO2 43 mmHg (35-45) 01/28/19 05:33 ABG pO2 82 mmHg (85-104) L 01/28/19 05:33 ABG O2 Saturation 96 % (95-98) 01/28/19 05:33 PT/INR, D-dimer PT 13.5 Seconds (9.4-12.1) H 01/27/19 23:45 1340 ng/mLFEU (0-500) H 01/26/19 22:30 Abnormal lab findings: Abnormal lab results WBC 17.7 K/mcL (4.3-11.1) H D 01/28/19 03:30 RBC 2.34 M/mcL (3.82-4.97) L 01/28/19 03:30 Hgb 7.7 g/dL (11.5-15.4) L 01/28/19 03:30 Hct 24.3 % (35.3-44.9) L 01/28/19 03:30 MCV 103.8 fL (83.0-100.0) H 01/28/19 03:30 MCHC 31.2 g/dL (31.6-35.5) L 01/27/19 23:45 RDW 15.9 % (11.5-14.5) H 01/28/19 03:30 15.5 K/mcL (1.6-8.9) H 01/28/19 03:30 Nucleated RBCs/100 WBC 0.2 /100 WBC (0) H 01/27/19 23:45 PT 13.5 Seconds (9.4-12.1) H 01/27/19 23:45 APTT 44.3 Seconds (26.0-36.0) H D 01/27/19 23:45 1340 ng/mLFEU (0-500) H 01/26/19 22:30 Heparin Anti-Xa, Unfract 1.18 IU/mL (0.30-0.70) H* 01/27/19 14:55 ABG pH 7.46 pH Units (7.32-7.45) H 01/27/19 22:48 ABG pCO2 46 mmHg (35-45) H 01/27/19 08:32 ABG pO2 82 mmHg (85-104) L 01/28/19 05:33 ABG HCO3 30 mEq/L (21-27) H 01/27/19 22:48 ABG Total CO2 27 mEq/L (20-26) H 01/28/19 05:33 ABG Base Excess 6 mEq/L (-2 to 3) H 01/27/19 22:48 Sodium 131 mEq/L (136-145) L 01/27/19 09:04 Chloride 94 mEq/L (98-107) L 01/27/19 09:04 BUN 30 mg/dL (8-23) H 01/28/19 03:30 4.07 mg/dL (0.60-1.20) H 01/28/19 03:30 Est GFR ( Amer) 13 (> 60) L 01/28/19 03:30 Est GFR (Non-Af Amer) 10 (> 60) L 01/28/19 03:30 Glucose 172 mg/dL (70-105) H 01/28/19 03:30 POC Glucose 141 mg/dL (70-99) H 01/28/19 00:07 Calcium 8.2 mg/dL (8.6-10.3) L 01/28/19 03:30 Iron 25 mcg/dL (50-170) L 01/27/19 23:45 % Saturation 13 % (15-50) L 01/27/19 23:45 137 mg/dL (203-362) L 01/27/19 23:45 1.61 ng/mL (< 0.04) H* 01/27/19 23:45 B-Natriuretic Peptide 1421 pg/mL (Less than 100) H 01/26/19 22:30 5.6 g/dL (6.4-8.9) L 01/27/19 23:45 3.0 g/dL (3.5-5.7) L 01/27/19 23:45 3.9 g/dL (2.4-3.5) H 01/26/19 22:30 36 mg/dL (40-59) L 01/27/19 23:45 Hazy (Clear) A 01/26/19 23:45 100 mg/dL (Neg-Trace) H 01/26/19 23:45 Small (Negative) H 01/26/19 23:45 3-5 per hpf (0-3) H 01/26/19 23:45 Ur Squamous Epith Cells Many per lpf (None-Few) H 01/26/19 23:45 Amorphous Sediment Moderate (Few) H 01/26/19 23:45 Many per hpf (None-Few) H 01/26/19 23:45 Ur Culture Indicated? YES (NO) A 01/26/19 23:45 Crossmatch See Detail 01/28/19 01:32 - Microbiology Findings Microbiology Findings: Microbiology, Last 48 Hours 01/26/19 23:45 Urine Culture - Final Urine,Catheterized (Straight) No growth. 01/27/19 09:00 Blood Culture - Preliminary Peripheral Venipuncture Culture is incubating and being continuously mon itored for growth. Final report to follow. 01/27/19 09:06 Blood Culture - Preliminary Peripheral Venipuncture Culture is incubating and being continuously monitored for growth. Final report to follow. - Clinical Findings Intake & Output: Intake & Output 01/27/19 01/27/19 01/28/19 15:59 23:59 07:59 Intake Total 729.0 / 1299.0 300 / 1299.0 1118 / 1118 Output Total 3100 / 3300 0 / 0 Balance -2371.0 / -2001.0 300 / -2001.0 1118 / 1118 Weight 62 kg 62 kg Consult Discharge Plan - Plan Referrals: Mohit Cullen MD [Primary Care Provider] - <Michelle Carr - Last Filed: 01/28/19 22:32> Date of Encounter: 01/28/19 All Systems: The remainder of the systems were reviewed and are negative Physical Examination Vital Signs: Vital Signs, Last 4 Hours Temp Pulse Resp BP Pulse Ox 01/28/19 15:32 21 151/64 100 01/28/19 15:30 20 100 01/28/19 15:00 76 20 151/64 98 01/28/19 14:25 19 111/54 98 01/28/19 14:00 76 28 108/55 98 01/28/19 13:00 106 12 123/64 100 01/28/19 12:34 98.9 F 01/28/19 12:00 98.9 F 67 12 85/50 100 Ventilator Settings Ventilator Settings: Ventilator Settings, Last 8 Hours Ventilator Tidal Volume 450 Setting Ventilator Tidal Volume 450 Setting Ventilator Tidal Volume 450 Setting Ventilator Tidal Volume 450 Setting Ventilator Tidal Volume 450 Setting Ventilator Tidal Volume 450 Setting Ventilator Tidal Volume 450 Setting Ventilator Tidal Volume 450 Setting Ventilator Tidal Volume 450 Setting Ventilator Tidal Volume 450 Setting Ventilator Tidal Volume 450 Setting Ventilator Respiratory Rate 12 Setting Ventilator Respiratory Rate 12 Setting Ventilator Respiratory Rate 12 Setting Ventilator Respiratory Rate 12 Setting Ventilator Respiratory Rate 12 Setting Ventilator Respiratory Rate 12 Setting Ventilator Respiratory Rate 12 Setting Ventilator Respiratory Rate 12 Setting Ventilator Respiratory Rate 12 Setting Ventilator Respiratory Rate 12 Setting Ventilator Respiratory Rate 12 Setting Actual Respiratory Rate 21 Actual Respiratory Rate 12 Actual Respiratory Rate 12 Actual Respiratory Rate 12 Actual Respiratory Rate 12 Actual Respiratory Rate 12 Actual Respiratory Rate 12 Actual Respiratory Rate 12 Actual Respiratory Rate 12 Actual Respiratory Rate 12 Actual Respiratory Rate 12 Actual Respiratory Rate 12 Positive End Expiratory 5 Pressure Positive End Expiratory 5 Pressure Positive End Expiratory 5 Pressure Positive End Expiratory 5 Pressure Positive End Expiratory 5 Pressure Positive End Expiratory 5 Pressure Positive End Expiratory 5 Pressure Positive End Expiratory 5 Pressure Positive End Expiratory 5 Pressure Positive End Expiratory 5 Pressure Positive End Expiratory 5 Pressure Positive End Expiratory 5 Pressure Peak Inspiratory Airway 13 Pressure Peak Inspiratory Airway 33 Pressure Peak Inspiratory Airway 29 Pressure Peak Inspiratory Airway 33 Pressure Peak Inspiratory Airway 33 Pressure Peak Inspiratory Airway 33 Pressure Peak Inspiratory Airway 26 Pressure Peak Inspiratory Airway 33 Pressure Peak Inspiratory Airway 33 Pressure Peak Inspiratory Airway 33 Pressure Peak Inspiratory Airway 31 Pressure Peak Inspiratory Airway 33 Pressure Results - Laboratory Findings CBC and BMP: 01/28/19 11:50 01/28/19 03:30 ABG ABG pH 7.38 pH Units (7.32-7.45) 01/28/19 05:33 ABG pCO2 43 mmHg (35-45) 01/28/19 05:33 ABG pO2 82 mmHg (85-104) L 01/28/19 05:33 ABG O2 Saturation 96 % (95-98) 01/28/19 05:33 PT/INR, D-dimer PT 13.5 Seconds (9.4-12.1) H 01/27/19 23:45 1340 ng/mLFEU (0-500) H 01/26/19 22:30 Abnormal lab findings: Abnormal lab results WBC 17.7 K/mcL (4.3-11.1) H D 01/28/19 03:30 RBC 2.34 M/mcL (3.82-4.97) L 01/28/19 03:30 Hgb 9.8 g/dL (11.5-15.4) L D 01/28/19 11:50 Hct 29.8 % (35.3-44.9) L 01/28/19 11:50 MCV 103.8 fL (83.0-100.0) H 01/28/19 03:30 MCHC 31.2 g/dL (31.6-35.5) L 01/27/19 23:45 RDW 15.9 % (11.5-14.5) H 01/28/19 03:30 15.5 K/mcL (1.6-8.9) H 01/28/19 03:30 Nucleated RBCs/100 WBC 0.2 /100 WBC (0) H 01/27/19 23:45 PT 13.5 Seconds (9.4-12.1) H 01/27/19 23:45 APTT 44.3 Seconds (26.0-36.0) H D 01/27/19 23:45 1340 ng/mLFEU (0-500) H 01/26/19 22:30 Heparin Anti-Xa, Unfract 1.18 IU/mL (0.30-0.70) H* 01/27/19 14:55 ABG pH 7.46 pH Units (7.32-7.45) H 01/27/19 22:48 ABG pCO2 46 mmHg (35-45) H 01/27/19 08:32 ABG pO2 82 mmHg (85-104) L 01/28/19 05:33 ABG HCO3 30 mEq/L (21-27) H 01/27/19 22:48 ABG Total CO2 27 mEq/L (20-26) H 01/28/19 05:33 ABG Base Excess 6 mEq/L (-2 to 3) H 01/27/19 22:48 Sodium 131 mEq/L (136-145) L 01/27/19 09:04 Chloride 94 mEq/L (98-107) L 01/27/19 09:04 BUN 30 mg/dL (8-23) H 01/28/19 03:30 4.07 mg/dL (0.60-1.20) H 01/28/19 03:30 Est GFR ( Amer) 13 (> 60) L 01/28/19 03:30 Est GFR (Non-Af Amer) 10 (> 60) L 01/28/19 03:30 Glucose 172 mg/dL (70-105) H 01/28/19 03:30 POC Glucose 141 mg/dL (70-99) H 01/28/19 00:07 Calcium 8.2 mg/dL (8.6-10.3) L 01/28/19 03:30 Iron 25 mcg/dL (50-170) L 01/27/19 23:45 % Saturation 13 % (15-50) L 01/27/19 23:45 137 mg/dL (203-362) L 01/27/19 23:45 1.61 ng/mL (< 0.04) H* 01/27/19 23:45 B-Natriuretic Peptide 1421 pg/mL (Less than 100) H 01/26/19 22:30 5.6 g/dL (6.4-8.9) L 01/27/19 23:45 3.0 g/dL (3.5-5.7) L 01/27/19 23:45 3.9 g/dL (2.4-3.5) H 01/26/19 22:30 36 mg/dL (40-59) L 01/27/19 23:45 Hazy (Clear) A 01/26/19 23:45 100 mg/dL (Neg-Trace) H 01/26/19 23:45 Small (Negative) H 01/26/19 23:45 3-5 per hpf (0-3) H 01/26/19 23:45 Ur Squamous Epith Cells Many per lpf (None-Few) H 01/26/19 23:45 Amorphous Sediment Moderate (Few) H 01/26/19 23:45 Many per hpf (None-Few) H 01/26/19 23:45 Ur Culture Indicated? YES (NO) A 01/26/19 23:45 Crossmatch See Detail 01/28/19 01:32 - Microbiology Findings Microbiology Findings: Microbiology, Last 48 Hours 01/26/19 23:45 Urine Culture - Final Urine,Catheterized (Straight) No growth. 01/27/19 09:00 Blood Culture - Preliminary Peripheral Venipuncture Culture is incubating and being continuously monitored for growth. Final report to follow. 01/27/19 09:06 Blood Culture - Preliminary Peripheral Venipuncture Culture is incubating and being continuously monitored for growth. Final report to follow. - Clinical Findings Intake & Output: Intake & Output 01/27/19 01/28/19 01/28/19 23:59 07:59 15:59 Intake Total 300 / 1299.0 1118 / 1418 300 / 1418 Output Total 0 / 50 50 / 50 Balance 300 / -2001.0 1118 / 1368 250 / 1368 Weight 62 kg 62 kg - Attending Attestation I examined this patient and my medical decision-making was reviewed with the Resident Physician. I agree with the documented findings, disposition and treatment plan as described except to the extent set forth below. Patient seen and examined. Labs, radiology, chart personally reviewed. 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 Reviewing CXR, there is evidence of pulm edema and that could be related to volume resuscitation and need to check echocardiogram. Cardiovascular: Patient in shock and cardiology has been consulted. I have changed her pressors to Dopamine and weaned off Levophed suspecting this could be cardiogenic in nature and she responded good to that. GI: Nutrition per dietary and GI prophylaxis per routine Heme: DVT prophylaxis per routine ID: Continue antibiotics and plan to de-escalation Renal; urine out put and renal funtion reviewed Endorcine: blood glucose is monitored Lines: all lines checked and no evidence of infections Skin: skin care to prevent pressure ulcers per nursing routine care I spent 35 min of Critical Care time with this patient. It involved decision making of high complexity to assess, manipulate, and support vital organ system failure and/or to prevent further life threatening deterioration of the patient's condition. The time involved in the performance of separately reportable procedures was not counted toward critical care time.
[2019-01-28] MEDS: Chlorhexidine Rinse 15 ML MOUTHWASH MM SCH ×2 (08:15→20:22)
[2019-01-28] MEDS: Gabapentin 300 MG CAPSULE PO SCH (08:15)
[2019-01-28] MEDS: hydrALAZINE 25 MG TABLET PO SCH ×2 (08:16→20:34)
[2019-01-28] MEDS: Aspirin 81 MG TAB.CHEW PO SCH (08:16)
[2019-01-28] MEDS: Isosorbide MONOnitrate (24 HR) 30 MG TAB.ER.24H PO SCH (08:16)
--- NOTE | 2019-01-28 10:02 | Cardiology Progress Note ---
Date of Encounter: 01/28/19 Time of Encounter: 09:00 Assessment and Plan (1) NSTEMI (non-ST elevated myocardial infarction) Current Visit: Yes Status: Acute Per cardiology: -Notes reviewed from event overnight. -Troponins 1.4, 1.8, 1.83, 1.81, 1.63. -ECG with no acute ischemic changes. -TTE pending with LVEF 45-50%, segmental wall motion abnormalities noted, moderate diastolic dysfunction, mild AR, mild , moderate MR, moderate TR, severe PH, small pericardial effusion with no evidence of tamponade. 2013 LVEF 60%. -On asa, plavix, statin, BB. Was on heparin drip, however acute drop in hemoglobin noted and heparin was stopped. Patient required 2 units PRBC transfusion. -Ideally would recommend LHC, however now with acute drop in hemoglobin, concern for bleeding, LHC is contraindicated at this time. Would recommend GI evaluation prior to LHC. However, patient may be too unstable for GI evaluation at this time. -Discussed and reviewed with . Cardiology will sign off, please reconsult when patient is stable for LHC and GI evaluation has been completed. (2) Congestive heart failure Current Visit: Yes Status: Acute Per cardiology: -Chest x-ray with CHF and repeat with worsening CHF. -ESRD on HD. Reports makes little urine. -TTE as above with LVEF 45-50%. -Strict i/os, fluid restriction, low sodium diet, daily weights. -Volume management per nephrology, unsure if lasix would be of benefit with little urine output. Qualifiers: Heart failure type: unspecified Heart failure chronicity: acute Qualified Code(s): I50.9 - Heart failure, unspecified (3) Pneumonia Current Visit: Yes Status: Suspected Per cardiology: -Being treated for PNA, WBC 19, today 17. -Management per primary service. Qualifiers: Pneumonia type: due to unspecified organism Laterality: bilateral Lung location: unspecified part of lung Qualified Code(s): J18.9 - Pneumonia, unspecified organism Discussion w patient/family: The assessment and plan as outlined above was discussed with the patient who expressed understanding and agreement. All questions were answered. Thank you for involving us in the care of your patient. Please call with any questions. Discussed and reviewed with . Subjective Principal diagnosis: PNA, respiratory failure Interval history: Patient intubated and sedated in ICU. Objective Vital Signs, Last 4 Hours Temp Pulse Resp BP Pulse Ox 01/28/19 09:00 68 12 106/57 100 01/28/19 08:42 98.0 F 01/28/19 08:07 12 148/77 97 01/28/19 08:00 98.0 F 79 12 148/77 98 01/28/19 07:00 79 12 148/72 98 01/28/19 06:00 96.0 F L 85 12 124/75 100 General: Other (Intubated and sedated) HEENT: Atraumatic, Normocephaly, Mucus Membranes Moist Neck: No JVD, Normal carotid pulses Cardiac: Reg Rate and Rhythm, Normal S1 and S2, No Murmur Lungs: Other (Lung sounds coarse throughout) Neuro: Other (Intubated and sedated) Abdomen: Soft, Non-Tender Skin: No rashes noted on visualized skin Musculoskeletal: No Chest Wall Tenderness Extremities: No Clubbing, No Cyanosis, No Edema, Normal Pulses Results 01/28/19 03:30 01/28/19 03:30 Lab Results Impressions Echocardiogram 01/27/19 05:23 Impressions: LVEF 45-50%. Moderate left ventricular diastolic dysfunction with tissue evidence of elevated filling pressures Normal right ventricular structure and function. Mild aortic regurgitation.Mild aortic stenosis. Moderate mitral regurgitation. Moderate tricuspid regurgitation. Severe pulmonary hypertension. Estimated RVSP is 70 mmHg. There is a small pericardial effusion without echocardiographic evidence of tamponade, present. Left Ventricular Wall Motion: Rest Echo Findings The mid anterior lateral, basal anterior lateral and basal inferior lateral jaffe were hypokinetic. The mid anterior septal wall was not visualized. All other wall segments showed normal motion. Findings: Study Quality * Technically sub-optimal due to poor echocardiographic windows. ECG Findings * Normal sinus rhythm. Left Ventricle * LVEF 45-50%. * Mildly dilated left ventricle. * Mild segmental left ventricular systolic dysfunction. * Moderate left ventricular diastolic dysfunction with tissue evidence of elevated filling pressures Right Ventricle * Normal right ventricular structure and function. Left Atrium * Moderately dilated left atrium. Right Atrium * Normal right atrial size. Interatrial Septum * No evidence of PFO by color Doppler. Aortic Valve * Aortic valve not well visualized. * Mildly calcified aortic valve leaflets. * Mild-moderate aortic regurgitation. * Mild aortic stenosis. * Peak aortic velocity and mean gradient are 2.61m/s and 15 mmHg, respectively. Mitral Valve * Moderate mitral regurgitation. * Normal mitral valve structure. * No mitral stenosis. Tricuspid Valve * Moderate tricuspid regurgitation. * Severe pulmonary hypertension. Estimated RVSP is 70 mmHg. * Estimated RVSP is 70 mmHg. * Estimated RA pressure is 5 mmHg. Pulmonic Valve * Trace pulmonic regurgitation. Aorta * Normally sized aortic root. Pericardium * There is a small pericardial effusion without echocardiographic evidence of tamponade, present. * There is no echocardiographic evidence of tamponade. IVC * Normal IVC dimensions and inspiratory collapse. Pleural Effusion * Moderate pleural effusion. Pulmonary Artery * Pulmonary artery not well visualized. Chest CT 01/27/19 16:07 IMPRESSION: 1. Moderate right and small left pleural effusions, suspected interstitial edema, and mild cardiomegaly, suggesting congestive heart failure. 2. Passive atelectasis in each lung is most prominent in the bilateral lower lobes, which are partially collapsed. Superimposed pneumonia could be present especially in the right middle and bilateral lower lobes. 3. Peribronchovascular consolidative and groundglass opacities bilaterally may represent alveolar edema or pneumonia. 4. Ill-defined nodular consolidative opacities in the left upper lobe measure up to 0.7 cm x 0.5 cm, most likely alveolar edema versus sequelae of an infectious or inflammatory process. However, neoplasia is not excluded. Recommend follow-up chest CT in 3-6 months as below. 5. 0.6 cm indeterminate hyperdense lesion in the upper pole of the left kidney, most likely a cyst with hemorrhagic or proteinaceous contents. Recommend further evaluation with renal protocol abdomen MRI (preferred) or CT. RECOMMENDATIONS: Fleischner Society guidelines for follow-up and management of incidentally detected pulmonary nodules: Multiple Solid Nodules: Nodule size equals 6-8 mm In a high-risk patient, CT at 3-6 months, then CT at 18-24 months. Radiology 2017 http://pubs.rsna.org/doi/full/10.1148/radiol.5631497769 D/ / Eric Rodgers MD / Eric Rodgers MD Interpreting Provider: Eric Rodgers MD Head CT 01/28/19 00:01 IMPRESSION: Chronic white matter changes with no acute intracranial hemorrhage or mass effect noted. D/ / 01/28/2019 07:18:23 Ulysses Erazo MD / earchris Interpreting Provider: Ulysses Erazo MD Abdomen/Pelvis CT 01/28/19 00:27 IMPRESSION: Distended gallbladder with suspected pericholecystic fluid, not well evaluated on this noncontrast study. Correlation is recommended. Gallbladder ultrasound may be helpful if indicated. D/ / Lauren Cornell Cha, MD / Lauren Cornell Cha, MD Interpreting Provider: Lauren Cornell Cha, MD Chest CT 01/28/19 00:27 IMPRESSION: Endotracheal tube in place with its tip just within the right mainstem bronchus. Retraction of the tube by 3 cm is recommended. Moderate bilateral pleural effusions with bilateral airspace disease, not significantly changed since the study performed yesterday. The findings were sent to the Radiology Results Communication Center at 1:38 am on 01/28/2019to be communicated to a licensed caregiver. D/ / Lauren Cornell Cha, MD / Lauren Cornell Cha, MD Interpreting Provider: Lauren Cornell Cha, MD Chest X-Ray 01/28/19 23:34 IMPRESSION: 1. Endotracheal tube tip is 4 cm above the elayne. 2. The enteric tube is in good position in the stomach. 3. Worsening pulmonary edema. 4. Improving left basilar atelectasis or pneumonia with stable right upper lobe airspace disease. D/ / Jay Osorio MD / Jay Osorio MD Interpreting Provider: Jay Osorio MD X-Ray 01/28/19 23:34 IMPRESSION: 1. Endotracheal tube tip is 4 cm above the elayne. 2. The enteric tube is in good position in the stomach. 3. Worsening pulmonary edema. 4. Improving left basilar atelectasis or pneumonia with stable right upper lobe airspace disease. D/ / Jay Osorio MD / Jay Osorio MD Interpreting Provider: Jay Osorio MD Active Medications Acetaminophen (Tylenol) 650 mg PO Q6HR PRN PRN Reason: Mild Pain/Fever Stop: 07/29/19 05:24 Last Admin: 01/27/19 17:33 Dose: 650 mg Documented by: Albuterol Sulfate (Proventil Neb) 2.5 mg IH [id number] PRN; Protocol PRN Reason: Shortness Of Breath/Wheezing Stop: 07/29/19 05:24 Last Admin: 01/27/19 07:48 Dose: 2.5 mg Documented by: Albuterol Sulfate (Albuterol Inhaler) 2 puff IH Q2HR PRN PRN Reason: Shortness Of Breath/Wheezing Stop: 07/30/19 00:42 Allopurinol (Zyloprim) 100 mg PO DAILY [facility] Stop: 07/29/19 09:01 Last Admin: 01/28/19 08:15 Dose: 100 mg Documented by: Artificial Tears (Akwa Tears) 1 drop BOTH EYES Q2HR PRN; Protocol PRN Reason: Dry Eyes Stop: 07/30/19 00:42 Artificial Tears (Akwa Tears) 1 drop BOTH EYES Q4HR [facility]; Protocol Stop: 07/30/19 04:01 Last Admin: 01/28/19 08:17 Dose: 1 drop Documented by: Aspirin (Aspirin) 81 mg PO DAILY [facility] Stop: 07/29/19 09:01 Last Admin: 01/28/19 08:16 Dose: 81 mg Documented by: Chlorhexidine Gluconate (Chlorhexidine Rinse) 15 ml MM BID [facility] Stop: 07/30/19 09:01 Last Admin: 01/28/19 08:15 Dose: 15 ml Documented by: Clopidogrel Bisulfate (Plavix) 75 mg PO DAILY [facility] Stop: 07/29/19 09:01 Last Admin: 01/28/19 08:15 Dose: 75 mg Documented by: Gabapentin (Neurontin) 300 mg PO DAILY [facility] Stop: 07/29/19 09:01 Last Admin: 01/28/19 08:15 Dose: 300 mg Documented by: Hydralazine HCl (Hydralazine) 25 mg PO BID [facility] Stop: 07/29/19 09:01 Last Admin: 01/28/19 08:16 Dose: Not Given Documented by: Azithromycin 500 mg/ Dextrose 250 mls @ 252 mls/hr IVPB Q24H [facility] Stop: 07/29/19 06:01 Last Infusion: 01/28/19 05:46 Dose: Infused Documented by: Ceftriaxone Sodium 2,000 mg/ (Sterile Water) 20 mls @ 600 mls/hr IVP Q24H [facility] Stop: 07/29/19 06:01 Last Infusion: 01/28/19 04:45 Dose: Infused Documented by: Sodium Chloride (0.9 % Sodium Chloride) 250 mls @ 937.5 mls/hr IVC .Q16M PRN PRN Reason: Hypotension Stop: 07/29/19 09:02 Sodium Chloride (0.9 % Sodium Chloride) 1,000 mls @ 0 mls/hr PRIME .Q0M [facility] Stop: 07/29/19 09:16 Dopamine HCl/Dextrose (Dopamine Premix 400mg/250ml) 400 mg in 250 mls @ 5.741 mls/hr IVC .Q24H [facility]; Protocol Stop: 07/30/19 00:46 Last Titration: 01/28/19 05:15 Dose: 5 mcg/kg/min, 11.5 mls/hr Documented by: Norepinephrine Bitartrate 4 mg (/ Dextrose) 254 mls @ 19.05 mls/hr IVC CONT [facility]; Protocol Stop: 07/30/19 00:46 Last Titration: 01/28/19 07:09 Dose: 4 mcg/min, 15.2 mls/hr Documented by: Propofol (Diprivan) 1,000 mg in 100 mls @ 1.837 mls/hr IVC .Q24H [facility]; Protocol Stop: 07/30/19 00:46 Last Titration: 01/28/19 05:25 Dose: 20 mcg/kg/min, 7.3 mls/hr Documented by: Isosorbide Mononitrate (Imdur) 30 mg PO DAILY [facility] Stop: 07/29/19 16:46 Last Admin: 01/28/19 08:16 Dose: Not Given Documented by: Metoprolol Tartrate (Lopressor) 12.5 mg PO BID [facility] Stop: 07/29/19 09:01 Last Admin: 01/28/19 08:16 Dose: Not Given Documented by: Naloxone HCl (Narcan) 0.4 mg IVP Q2MPRN PRN PRN Reason: SEE COMMENTS Stop: 07/29/19 05:24 Nitroglycerin (Nitroglycerin) 0.4 mg SL Q5MPRN PRN PRN Reason: Chest Pain Stop: 07/29/19 05:24 Last Admin: 01/27/19 07:46 Dose: 0.4 mg Documented by: Ondansetron HCl (Zofran) 4 mg IVP Q8HR PRN PRN Reason: Nausea And Vomiting Stop: 07/29/19 05:24 Last Admin: 01/27/19 07:59 Dose: 4 mg Documented by: Pantoprazole Sodium (Protonix) 40 mg IVP 0630 [facility] Stop: 07/30/19 00:46 Last Admin: 01/28/19 01:29 Dose: 40 mg Documented by: Simvastatin (Zocor) 10 mg PO [facility] Stop: 07/29/19 21:01 Last Admin: 01/27/19 21:36 Dose: 10 mg Documented by: Tizanidine HCl (Zanaflex) 2 mg PO [facility] Stop: 07/29/19 21:01 Last Admin: 01/27/19 21:37 Dose: 2 mg Documented by: Vancomycin HCl (Vancocin) 0 each IVPB RPHPROT PRN PRN Reason: PULSE DOSE Stop: 07/30/19 01:16 Laboratory Tests 01/26/19 01/26/19 01/27/19 22:30 22:30 00:19 WBC Hgb 8.8 L Creatinine Troponin I 1.43 H* B-Natriuretic Peptide 1421 H 01/27/19 01/27/19 01/27/19 09:04 14:55 20:46 WBC Hgb Creatinine Troponin I 1.80 H* 1.83 H* 1.81 H* B-Natriuretic Peptide 01/27/19 01/27/19 01/28/19 23:45 23:45 03:30 WBC 17.7 H D Hgb 6.9 L D 7.7 L Creatinine Troponin I 1.61 H* B-Natriuretic Peptide 01/28/19 03:30 WBC Hgb Creatinine 4.07 H Troponin I B-Natriuretic Peptide - Imaging and Cardiology Chest Xray: report reviewed Echo: report reviewed Consult Discharge Plan - Plan Referrals: Mohit Cullen MD [Primary Care Provider] -
--- NOTE | 2019-01-28 11:33 | Electrocardiograph Report ---
[address] [address] Test Date: 2019-01-27 Pat Name: Christina Waggoner Department: 112 Room: [facility] Gender: F Liter[employer] Professor: : [id number] Requested By: Jefferson Diggs Order Number: [id number] Reading MD: Hiram Yu Measurements Intervals Ezel Rate: 63 P: TN: 0 QRS: 2 QRSD: 94 T: 8 QT: 450 QTc: 457 Interpretive Statements SINUS RHYTHM WITH PACS NONSPECIFIC ST & T-WAVE ABNORMALITY ABNORMAL RHYTHM ECG Electronically Signed On 01-28-2019 11:31:36 EDT by Hiram Yu
[2019-01-28 12:23] LABS: Hematocrit 29.8 % (35.3-44.9)
[2019-01-28 12:24] LABS: Hemoglobin 9.8 g/dL (11.5-15.4)
[2019-01-28] MEDS: Piperacillin/Tazobactam 3.375 GM in 0.9 % Sodium Chloride Mini Bag 100 ML IVPB SCH (17:41)
[2019-01-28] MEDS: tiZANidine 4 MG TABLET PO SCH (20:35)
--- NOTE | 2019-01-28 23:52 | Nephrology Progress Note ---
Date of Encounter: 01/28/19 Subjective Principal diagnosis: PNA, respiratory failure Objective - Vital Signs Vital signs: Vital Signs Temp Pulse Resp BP Pulse Ox 01/28/19 23:31 100.2 F H 01/28/19 22:00 71 20 91/51 100 01/28/19 21:00 90 23 150/67 91 01/28/19 20:00 88 22 131/76 98 01/28/19 19:43 98.8 F 01/28/19 19:00 87 20 172/139 96 01/28/19 18:00 86 20 160/75 96 01/28/19 17:00 86 20 136/70 96 01/28/19 16:32 98 F 86 20 136/70 96 01/28/19 16:09 98.6 F 01/28/19 16:00 98 F 83 20 136/64 100 01/28/19 15:32 21 151/64 100 01/28/19 15:30 20 100 01/28/19 15:00 76 20 151/64 98 01/28/19 14:25 19 111/54 98 01/28/19 14:00 98.9 F 76 21 151/64 100 01/28/19 13:00 106 12 123/64 100 01/28/19 12:34 98.9 F 01/28/19 12:00 98.9 F 76 12 85/50 100 01/28/19 11:35 12 127/65 100 01/28/19 11:00 78 12 127/70 100 01/28/19 10:00 98.0 F 73 12 116/59 100 01/28/19 09:00 68 12 106/57 100 01/28/19 08:42 98.0 F 01/28/19 08:07 12 148/77 97 01/28/19 08:00 98.0 F 79 12 148/77 98 01/28/19 07:00 79 12 148/72 98 01/28/19 06:00 96.0 F L 85 12 124/75 100 01/28/19 05:52 96.0 F L 85 12 141/75 100 01/28/19 05:46 96.0 F L 86 12 96/63 100 01/28/19 05:33 12 96/63 98 01/28/19 05:20 96 F L 76 12 57/36 98 01/28/19 05:00 60 12 60/38 98 01/28/19 04:00 75 12 116/62 100 01/28/19 03:48 97.6 F 01/28/19 03:44 12 91/49 100 01/28/19 03:20 97.6 F 78 12 104/54 01/28/19 03:15 97.6 F 79 12 104/54 100 01/28/19 03:00 97.6 F 72 12 91/49 100 01/28/19 02:00 76 12 139/62 100 01/28/19 01:45 97.8 F 75 12 122/61 100 01/28/19 01:30 75 12 122/61 100 01/28/19 01:00 105 12 151/73 100 01/28/19 00:30 12 100 01/28/19 00:15 100 12 121/66 100 01/28/19 00:09 13 121/66 100 01/27/19 23:55 97.8 F 66 12 121/66 100 Intake and Output 01/28/19 01/28/19 01/28/19 07:59 15:59 23:59 Intake Total 1118 / 1518 300 / 1518 100 / 1518 Output Total 0 / 135 50 / 135 85 / 135 Balance 1118 / 1383 250 / 1383 15 / 1383 Intake: IV Fluids 818 / 918 100 / 918 DOPamine Premix 400mg/250mL 400 74 / 74 mg In 250 ml @ 2.5 MCG/KG/MIN 5.741 mls/hr IVC .Q24H [facility] Rx#: [id number] Levophed 4 MG In Dextrose 5% 314 / 314 250 ML @ 5 MCG/MIN 19.05 mls/hr IVC CONT [facility] Rx#:[id number] Diprivan 1,000 mg In 100 ml @ 5 160 / 160 MCG/KG/MIN 1.837 mls/hr IVC . Q24H [facility] Rx#:[id number] Rocephin 2,000 MG In Water for 20 / 20 inj. (sterile) 20 ML @ 600 mls/ hr IVP Q24H [facility] Rx#:[id number] Zithromax 500 mg In Dextrose 5% 250 / 250 250 ML @ 252 mls/hr IVPB Q24H [facility] Rx#:[id number] Zosyn 3.375 GM In 0.9 % Sodium 100 / 100 Chloride (Mini-Bag +) 100 ML @ 25 mls/hr IVPB Q12HR [facility] Rx#: [id number] Oral 0 / 0 Blood Product 300 / 600 300 / 600 Rbcs Leuko Poor As-1 Unit 300 / 300 [id number] Rbcs Leuko Poor As-1 Unit 0 / 300 300 / 300 [id number] Output: Urine 0 / 0 Catheter 0 / 135 50 / 135 85 / 135 Other: Weight 62 kg Blood Glucose* 86 84 Patient Weight 01/28/19 23:59 Weight 62 kg - Lab 01/28/19 11:50 01/28/19 03:30 Consult Discharge Plan - Plan Referrals: Mohit Cullen MD [Primary Care Provider] -
[2019-01-29] MEDS: Artificial Tears SOLN 15 ML BOTTLE BOTH EYES SCH ×3 (00:15→07:06)
[2019-01-29] MEDS: Piperacillin/Tazobactam 3.375 GM in 0.9 % Sodium Chloride Mini Bag 100 ML IVPB SCH (05:20)
[2019-01-29] MEDS: Azithromycin 500 MG in D5% in Water 250 ML IVPB SCH (05:21)
[2019-01-29] MEDS: Pantoprazole 40 MG VIAL IVP SCH (05:21)
[2019-01-29 05:33] LABS: Hematocrit 29.2 % (35.3-44.9); Hemoglobin 9.5 g/dL (11.5-15.4); Mean Corpuscular HGB Conc 32.5 g/dL (31.6-35.5); Mean Corpuscular Hemoglobin 31.6 pg (28.0-33.3); Mean Platelet Volume 10.8 fL (9.4-12.4); Platelet Count 215 K/mcL (140-400); Red Blood Count 3.01 M/mcL (3.82-4.97); Red Cell Distribution Width 17.2 % (11.5-14.5)
[2019-01-29 05:53] LABS: Calcium 9.3 mg/dL (8.6-10.3); Magnesium 2.1 mg/dL (1.6-2.6); Phosphorous 6.3 mg/dL (2.7-4.5); Potassium 4.7 mEq/L (3.5-5.1)
[2019-01-29] MEDS: Heparin 25,000 UNIT/250 ML D5W 25,000 UNIT/250 ML IV.SOLN IVC SCH (07:05)
--- NOTE | 2019-01-29 07:50 | Pulmonology Progress Note ---
<Marcus Jamison - Last Filed: 01/29/19 12:15> Date of Encounter: 01/29/19 Time of Encounter: 07:50 Assessment and Plan (1) Acute respiratory failure with hypoxia and hypercapnia Current Visit: Yes Status: Resolved -Intubated 01/28/19 during rapid -New onset heart failure vs pneumonia -Concern of aspiration pneumonia during rapid -Abx dc today -CXR 01/28/19: Worsening pulm edema, improving L basilar atelectasis or pneumonia with stable RUL airspace disease -Leukocytosis down from 17.7 to 11.9 today -Successful extubation yesterday without difficulty -On room air now -Transferring out of ICU today. Spoke to Dr Marvin about transfer. (2) Acute exacerbation of CHF (congestive heart failure) Current Visit: Yes Status: Acute -Admitted with dyspnea -Pulm edema on cxr -Received bokus IVF at rapid response for hypotension prior to intubation -Pulm edema worsened on cxr -Cards evaluated and recommended fluid and Na restriction -Diuretics questioned as does not make much urine 2/2 ESRD -TTE 01/28/19: EF 45-50%, mod lv diastolic dysfunction, normal RV, severe PH, mod MR and TR, mild and AR, small pericardial effusion -Oxygenation improved and stable since extubation yesterday Qualifiers: Heart failure type: diastolic Qualified Code(s): I50.33 - Acute on chronic diastolic (congestive) heart failure (3) NSTEMI (non-ST elevated myocardial infarction) Current Visit: Yes Status: Acute -Chest pain at admission -Trop 1.43, 1.8, 1.83, 1.81, 1.61 -EKG without acute ischemia -Heparin stopped overnight for concern of acute bleed with hgb drop from 9.3 to 6.9 which received 2 units PRBC -Cards evaluated and deferred lhc till hgb stable which appears to be at this time (4) ESRD (end stage renal disease) on dialysis Current Visit: Yes Status: Chronic -HD MWF -Cr 6.01 and BUN 55 on arrival -Cr 4.07 and BUN 30 today after HD 01/27/19 -Cr 5.29 and BUN 43 today. Dialysis today -No uop last 24 hrs (5) Hypotension Current Visit: Yes Status: Resolved -Hypotensive during rapid overnight 01/28/19 -Dopamine and NE started post rapid -R femoral central line placed emergently in nonsterile fashion and removed yesterday after pressors weaned off -BP stable off pressors Qualifiers: Hypotension type: unspecified hypotension type Qualified Code(s): I95.9 - Hypotension, unspecified Subjective Principal diagnosis: PNA, respiratory failure Interval history: No acute events overnight. Successfully extubated and weaned from pressors yesterday. Objective PUL Vital signs: Last Vital Signs Temp 98.6 F 01/29/19 07:25 Pulse 75 01/29/19 07:00 Resp 20 01/29/19 07:00 BP 119/60 01/29/19 07:00 Pulse Ox 96 01/29/19 07:00 General appearance: no acute distress, alert Eyes: nonicteric ENT: oropharynx dry Neck: supple Auscultation: bilateral: other (scattered coarse breath sounds ) Cardiovascular: regular rate and rhythm Gastrointestinal: hypoactive bowel sounds, soft, non-tender, non-distended Integumentary: normal Extremities: no cyanosis, no edema, pulses normal, no ischemia or petechiae normal mental status, other (residual L sided weakness) mood appropriate, affect normal Results - Laboratory Findings CBC and BMP: 01/29/19 05:19 01/29/19 05:19 ABG ABG pH 7.38 pH Units (7.32-7.45) 01/28/19 05:33 ABG pCO2 43 mmHg (35-45) 01/28/19 05:33 ABG pO2 82 mmHg (85-104) L 01/28/19 05:33 ABG O2 Saturation 96 % (95-98) 01/28/19 05:33 PT/INR, D-dimer PT 13.5 Seconds (9.4-12.1) H 01/27/19 23:45 1340 ng/mLFEU (0-500) H 01/26/19 22:30 Abnormal lab findings: Abnormal lab results WBC 11.9 K/mcL (4.3-11.1) H 01/29/19 05:19 RBC 3.01 M/mcL (3.82-4.97) L 01/29/19 05:19 Hgb 9.5 g/dL (11.5-15.4) L 01/29/19 05:19 Hct 29.2 % (35.3-44.9) L 01/29/19 05:19 MCV 103.8 fL (83.0-100.0) H 01/28/19 03:30 MCHC 31.2 g/dL (31.6-35.5) L 01/27/19 23:45 RDW 17.2 % (11.5-14.5) H 01/29/19 05:19 15.5 K/mcL (1.6-8.9) H 01/28/19 03:30 Nucleated RBCs/100 WBC 0.2 /100 WBC (0) H 01/27/19 23:45 PT 13.5 Seconds (9.4-12.1) H 01/27/19 23:45 APTT 44.3 Seconds (26.0-36.0) H D 01/27/19 23:45 1340 ng/mLFEU (0-500) H 01/26/19 22:30 Heparin Anti-Xa, Unfract 1.18 IU/mL (0.30-0.70) H* 01/27/19 14:55 ABG pH 7.46 pH Units (7.32-7.45) H 01/27/19 22:48 ABG pCO2 46 mmHg (35-45) H 01/27/19 08:32 ABG pO2 82 mmHg (85-104) L 01/28/19 05:33 ABG HCO3 30 mEq/L (21-27) H 01/27/19 22:48 ABG Total CO2 27 mEq/L (20-26) H 01/28/19 05:33 ABG Base Excess 6 mEq/L (-2 to 3) H 01/27/19 22:48 Sodium 131 mEq/L (136-145) L 01/27/19 09:04 Chloride 94 mEq/L (98-107) L 01/27/19 09:04 BUN 43 mg/dL (8-23) H 01/29/19 05:19 5.29 mg/dL (0.60-1.20) H 01/29/19 05:19 Est GFR ( Amer) 9 (> 60) L 01/29/19 05:19 Est GFR (Non-Af Amer) 8 (> 60) L 01/29/19 05:19 Glucose 172 mg/dL (70-105) H 01/28/19 03:30 POC Glucose 141 mg/dL (70-99) H 01/28/19 00:07 Calcium 8.2 mg/dL (8.6-10.3) L 01/28/19 03:30 Phosphorus 6.3 mg/dL (2.7-4.5) H 01/29/19 05:19 Iron 25 mcg/dL (50-170) L 01/27/19 23:45 % Saturation 13 % (15-50) L 01/27/19 23:45 137 mg/dL (203-362) L 01/27/19 23:45 1.61 ng/mL (< 0.04) H* 01/27/19 23:45 B-Natriuretic Peptide 1421 pg/mL (Less than 100) H 01/26/19 22:30 5.6 g/dL (6.4-8.9) L 01/27/19 23:45 3.0 g/dL (3.5-5.7) L 01/27/19 23:45 3.9 g/dL (2.4-3.5) H 01/26/19 22:30 36 mg/dL (40-59) L 01/27/19 23:45 Hazy (Clear) A 01/26/19 23:45 100 mg/dL (Neg-Trace) H 01/26/19 23:45 Small (Negative) H 01/26/19 23:45 3-5 per hpf (0-3) H 01/26/19 23:45 Ur Squamous Epith Cells Many per lpf (None-Few) H 01/26/19 23:45 Amorphous Sediment Moderate (Few) H 01/26/19 23:45 Many per hpf (None-Few) H 01/26/19 23:45 Ur Culture Indicated? YES (NO) A 01/26/19 23:45 Crossmatch See Detail 01/28/19 01:32 - Microbiology Findings Microbiology Findings: Microbiology, Last 48 Hours 01/26/19 23:45 Urine Culture - Final Urine,Catheterized (Straight) No growth. 01/27/19 09:00 Blood Culture - Preliminary Peripheral Venipuncture Culture is incubating and being continuously monitored for growth. Final report to follow. 01/27/19 09:06 Blood Culture - Preliminary Peripheral Venipuncture Culture is incubating and being continuously monitored for growth. Final report to follow. - Clinical Findings Intake & Output: Intake & Output 01/28/19 01/28/19 01/29/19 15:59 23:59 07:59 Intake Total 300 / 1518 100 / 1518 500 / 500 Output Total 50 / 135 85 / 135 90 / 90 Balance 250 / 1383 15 / 1383 410 / 410 Consult Discharge Plan - Plan Referrals: Mohit Cullen MD [Primary Care Provider] - <Michelle Carr - Last Filed: 01/29/19 16:06> Date of Encounter: 01/29/19 Objective PUL Vital signs: Last Vital Signs Temp 98.6 F 01/29/19 07:25 Pulse 82 01/29/19 09:00 Resp 20 01/29/19 09:00 BP 131/56 01/29/19 09:00 Pulse Ox 96 01/29/19 09:00 Results - Laboratory Findings CBC and BMP: 01/29/19 05:19 01/29/19 05:19 ABG ABG pH 7.38 pH Units (7.32-7.45) 01/28/19 05:33 ABG pCO2 43 mmHg (35-45) 01/28/19 05:33 ABG pO2 82 mmHg (85-104) L 01/28/19 05:33 ABG O2 Saturation 96 % (95-98) 01/28/19 05:33 PT/INR, D-dimer PT 13.5 Seconds (9.4-12.1) H 01/27/19 23:45 1340 ng/mLFEU (0-500) H 01/26/19 22:30 Abnormal lab findings: Abnormal lab results WBC 11.9 K/mcL (4.3-11.1) H 01/29/19 05:19 RBC 3.01 M/mcL (3.82-4.97) L 01/29/19 05:19 Hgb 9.5 g/dL (11.5-15.4) L 01/29/19 05: Hct 29.2 % (35.3-44.9) L 01/29/19 05:19 MCV 103.8 fL (83.0-100.0) H 01/28/19 03:30 MCHC 31.2 g/dL (31.6-35.5) L 01/27/19 23:45 RDW 17.2 % (11.5-14.5) H 01/29/19 05:19 15.5 K/mcL (1.6-8.9) H 01/28/19 03:30 Nucleated RBCs/100 WBC 0.2 /100 WBC (0) H 01/27/19 23:45 PT 13.5 Seconds (9.4-12.1) H 01/27/19 23:45 APTT 44.3 Seconds (26.0-36.0) H D 01/27/19 23:45 1340 ng/mLFEU (0-500) H 01/26/19 22:30 Heparin Anti-Xa, Unfract 1.18 IU/mL (0.30-0.70) H* 01/27/19 14:55 ABG pH 7.46 pH Units (7.32-7.45) H 01/27/19 22:48 ABG pCO2 46 mmHg (35-45) H 01/27/19 08:32 ABG pO2 82 mmHg (85-104) L 01/28/19 05:33 ABG HCO3 30 mEq/L (21-27) H 01/27/19 22:48 ABG Total CO2 27 mEq/L (20-26) H 01/28/19 05:33 ABG Base Excess 6 mEq/L (-2 to 3) H 01/27/19 22:48 Sodium 131 mEq/L (136-145) L 01/27/19 09:04 Chloride 94 mEq/L (98-107) L 01/27/19 09:04 BUN 43 mg/dL (8-23) H 01/29/19 05:19 5.29 mg/dL (0.60-1.20) H 01/29/19 05:19 Est GFR ( Amer) 9 (> 60) L 01/29/19 05:19 Est GFR (Non-Af Amer) 8 (> 60) L 01/29/19 05:19 Glucose 172 mg/dL (70-105) H 01/28/19 03:30 POC Glucose 141 mg/dL (70-99) H 01/28/19 00:07 Calcium 8.2 mg/dL (8.6-10.3) L 01/28/19 03:30 Phosphorus 6.3 mg/dL (2.7-4.5) H 01/29/19 05:19 Iron 25 mcg/dL (50-170) L 01/27/19 23:45 % Saturation 13 % (15-50) L 01/27/19 23:45 137 mg/dL (203-362) L 01/27/19 23:45 1.61 ng/mL (< 0.04) H* 01/27/19 23:45 B-Natriuretic Peptide 1421 pg/mL (Less than 100) H 01/26/19 22:30 5.6 g/dL (6.4-8.9) L 01/27/19 23:45 3.0 g/dL (3.5-5.7) L 01/27/19 23:45 3.9 g/dL (2.4-3.5) H 01/26/19 22:30 36 mg/dL (40-59) L 01/27/19 23:45 Hazy (Clear) A 01/26/19 23:45 100 mg/dL (Neg-Trace) H 01/26/19 23:45 Small (Negative) H 01/26/19 23:45 3-5 per hpf (0-3) H 01/26/19 23:45 Ur Squamous Epith Cells Many per lpf (None-Few) H 01/26/19 23:45 Amorphous Sediment Moderate (Few) H 01/26/19 23:45 Many per hpf (None-Few) H 01/26/19 23:45 Ur Culture Indicated? YES (NO) A 01/26/19 23:45 Crossmatch See Detail 01/28/19 01:32 - Microbiology Findings Microbiology Findings: Microbiology, Last 48 Hours 01/26/19 23:45 Urine Culture - Final Urine,Catheterized (Straight) No growth. 01/27/19 09:00 Blood Culture - Preliminary Peripheral Venipuncture Culture is incubating and being continuously monitored for growth. Final report to follow. 01/27/19 09:06 Blood Culture - Preliminary Peripheral Venipuncture Culture is incubating and being continuously monitored for growth. Final report to follow. - Clinical Findings Intake & Output: Intake & Output 01/28/19 01/29/19 01/29/19 23:59 07:59 15:59 Intake Total 100 / 1518 500 / 960 460 / 960 Output Total 85 / 135 90 / 90 Balance 15 / 1383 410 / 870 460 / 870 - Attending Attestation I examined this patient and my medical decision-making was reviewed with the Resident Physician. I agree with the documented findings, disposition and treatment plan as described except to the extent set forth below. Patient seen and examined. Labs, radiology, chart personally reviewed. 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 Patient to continue her hemodialysis Endorcine: blood glucose is monitored Lines: all lines checked and no evidence of infections Skin: skin care to prevent pressure ulcers per nursing routine care I have discussed her case with the family at the bedside and explained to them is not clear to me at this time with exactly has happened and questionable if this is could happen again, however my suspicion it could be either cardiac or fluid overload from her underlying renal disease. Patient is stable to be transferred to the floor.
[2019-01-29] MEDS: Gabapentin 300 MG CAPSULE PO SCH (08:08)
[2019-01-29] MEDS: Aspirin 81 MG TAB.CHEW PO SCH (08:08)
[2019-01-29] MEDS ORDERED: *HR* Heparin 10,000 UNIT/10 ML VIAL IV PRN (08:12)
[2019-01-29] MEDS ORDERED: 0.9 % Sodium Chloride 250 ML IVC PRN ×2 (08:12→11:44)
[2019-01-29] MEDS: Isosorbide MONOnitrate (24 HR) 30 MG TAB.ER.24H PO SCH (08:14)
[2019-01-29] MEDS: hydrALAZINE 25 MG TABLET PO SCH ×2 (08:14→20:48)
[2019-01-29] MEDS ORDERED: 0.9 % Sodium Chloride 1,000 ML PRIME SCH ×2 (08:15→11:44)
[2019-01-29] MEDS ORDERED: Ondansetron 4 MG/2 ML VIAL IVP PRN (11:44)
[2019-01-29] MEDS ORDERED: Albuterol 2.5 MG/3 ML NEBULIZER IH PRN (11:44)
[2019-01-29] MEDS ORDERED: Nitroglycerin 0.4 MG TAB.SUBL SL PRN (11:44)
[2019-01-29] MEDS ORDERED: Acetaminophen 325 MG TABLET PO PRN (11:44)
[2019-01-29] MEDS ORDERED: Naloxone 0.4 MG/ML INJ IVP PRN (11:44)
--- NOTE | 2019-01-29 12:50 | Nephrology Progress Note ---
Date of Encounter: 01/29/19 Time of Encounter: 10:30 - Assessment and Plan (1) ESRD (end stage renal disease) on dialysis Current Visit: Yes Status: Chronic - Hgb below acceptable range, however stable at 9.5. Heparin stopped overnight for concern of acute bleed with hgb drop from 9.3 to 6.9 which received 2 units PRBC . - Resume HD treatments with ultrafiltration as tolerated. - Renal diet. - Fluid restrictions. - Resume renal related home meds. (2) Acute exacerbation of CHF (congestive heart failure) Current Visit: Yes Status: Acute Pulm edema on cxr. Received bokus IVF at rapid response for hypotension prior to intubation Pulm edema worsened on cxr. Cards evaluated and recommended fluid and Na restriction. TTE 01/28/19: EF 45-50%, mod lv diastolic dysfunction, normal RV, severe PH, mod MR and TR, mild and AR, small pericardial effusion -Oxygenation improved and stable since extubation yesterday - Management per primary team. Qualifiers: Heart failure type: diastolic Qualified Code(s): I50.33 - Acute on chronic diastolic (congestive) heart failure (3) NSTEMI (non-ST elevated myocardial infarction) Current Visit: Yes Status: Acute Chest pain at admission. Trop 1.43, 1.8, 1.83, 1.81, 1.61. EKG without acute is chemia. (4) Hypotension Current Visit: Yes Status: Resolved Hypotensive during rapid overnight 01/28/19. Dopamine and NE started post rapid. R femoral central line placed emergently in nonsterile fashion and removed yesterday after pressors weaned off -BP stable off pressors. - Management per primary team. Qualifiers: Hypotension type: unspecified hypotension type Qualified Code(s): I95.9 - Hypotension, unspecified Subjective Principal diagnosis: PNA, respiratory failure Interval history: When seen today, patient was denying any LE swelling. She denied any chest pain, SOB, or fever. Admitted to minor productive cough with clear sputum. Denied any abdominal pain, nausea, or vomiting. Objective - Vital Signs Vital signs: Vital Signs Temp Pulse Resp BP Pulse Ox 01/29/19 12:25 132/60 01/29/19 12:10 119/64 01/29/19 12:06 98.1 F 01/29/19 12:00 81 20 130/69 98 01/29/19 11:55 130/65 01/29/19 11:40 132/78 01/29/19 11:25 134/79 01/29/19 11:10 159/66 01/29/19 11:00 82 18 89/74 97 01/29/19 10:55 143/73 01/29/19 10:40 154/72 01/29/19 10:25 145/64 01/29/19 10:10 145/73 01/29/19 10:00 81 20 146/58 97 01/29/19 09:55 137/54 01/29/19 09:40 132/54 01/29/19 09:25 98.7 F 24 129/62 01/29/19 09:00 82 20 131/56 96 01/29/19 08:00 78 20 130/57 98 01/29/19 07:25 98.6 F 01/29/19 07:08 97.8 F 01/29/19 07:00 75 20 119/60 96 01/29/19 06:00 76 24 126/61 97 01/29/19 05:00 75 18 120/54 97 01/29/19 04:00 98.6 F 74 20 130/55 100 01/29/19 01:00 73 18 122/56 100 01/29/19 00:00 81 22 102/57 98 01/28/19 23:31 100.2 F H 01/28/19 23:00 69 24 102/58 100 01/28/19 22:00 71 20 91/51 100 01/28/19 21:00 90 23 150/67 91 01/28/19 20:00 88 22 131/76 98 01/28/19 19:43 98.8 F 01/28/19 19:00 87 20 172/139 96 01/28/19 18:00 86 20 160/75 96 01/28/19 17:00 86 20 136/70 96 01/28/19 16:32 98 F 86 20 136/70 96 01/28/19 16:09 98.6 F 01/28/19 16:00 98 F 83 20 136/64 100 01/28/19 15:32 21 151/64 100 01/28/19 15:30 20 100 01/28/19 15:00 76 20 151/64 98 01/28/19 14:25 19 111/54 98 01/28/19 14:00 98.9 F 76 21 151/64 100 01/28/19 13:00 106 12 123/64 100 Intake and Output 01/28/19 01/29/19 01/29/19 23:59 07:59 15:59 Intake Total 100 / 1518 500 / 1560 1060 / 1560 Output Total 85 / 135 90 / 90 Balance 15 / 1383 410 / 1470 1060 / 1470 Intake: IV Fluids 100 / 918 500 / 600 100 / 600 DOPamine Premix 400mg/250mL 400 0 / 0 mg In 250 ml @ 2.5 MCG/KG/MIN 5.741 mls/hr IVC .Q24H [facility] Rx#: [id number] Heparin 25,000 UNIT/250 ML D5W 0 / 0 25,000 unit In 250 ml @ 14 UNIT /KG/HR 8.573 mls/hr IVC .Q24H [facility] Rx#:[id number] Levophed 4 MG In Dextrose 5% 0 / 0 250 ML @ 5 MCG/MIN 19.05 mls/hr IVC CONT [facility] Rx#:[id number] Diprivan 1,000 mg In 100 ml @ 5 0 / 0 MCG/KG/MIN 1.837 mls/hr IVC . Q24H [facility] Rx#:[id number] Zithromax 500 mg In Dextrose 5% 250 / 250 250 ML @ 252 mls/hr IVPB Q24H [facility] Rx#:[id number] Zosyn 3.375 GM In 0.9 % Sodium 100 / 100 100 / 100 Chloride (Mini-Bag +) 100 ML @ 25 mls/hr IVPB Q12HR [facility] Rx#: [id number] Vancocin 1,250 MG In 0.9 % 250 / 250 Sodium Chloride 250 ML @ 166.67 mls/hr IVPB ONCE ONE Rx#: [id number] Oral 0 / 360 360 / 360 Intake, Rinseback and Flushes 600 / 600 Output: Catheter 85 / 135 90 / 90 Other: Meal Breakfast Percent of Meal Consumed 50% Blood Glucose* 84 Hemodialysis Net Fluid Removed 3600 (mL) - General Appearance General appearance: Present: well-developed, well-nourished, appears started age EENT: Present: mucous membranes moist Neck: Present: no JVD Respiratory: Present: clear Cardiology: Present: no murmurs, no rub, no gallops, no edema, regular rate, regular rhythm, normal S1, normal S2 Gastrointestinal: Present: normoactive bowel sounds, no tenderness, no guarding, no organomegaly, no masses Integumentary: Present: warm and dry Neurologic: Present: no focal deficit, alert and oriented x3 Musculoskeletal: Present: no deformities, no erythema, no cyanosis, no clubbing Psychiatric: Present: mood/affect appropriate, cooperative - Lab 01/29/19 05:19 01/29/19 05:19 Most recent lab results 01/29/19 05:19 Calcium 9.3 Phosphorus 6.3 H Magnesium 2.1 Consult Discharge Plan - Plan Referrals: Mohit Cullen MD [Primary Care Provider] -
[2019-01-29] MEDS: tiZANidine 4 MG TABLET PO SCH (20:48)
[2019-01-30 03:37] LABS: Hematocrit 29.2 % (35.3-44.9); Hemoglobin 9.5 g/dL (11.5-15.4); Mean Corpuscular HGB Conc 32.5 g/dL (31.6-35.5); Mean Corpuscular Hemoglobin 31.7 pg (28.0-33.3); Mean Corpuscular Volume 97.3 fL (83.0-100.0); Mean Platelet Volume 10.6 fL (9.4-12.4); Platelet Count 209 K/mcL (140-400)
[2019-01-30 03:55] LABS: Calcium 8.9 mg/dL (8.6-10.3); Potassium 3.9 mEq/L (3.5-5.1)
[2019-01-30] MEDS: Pantoprazole 40 MG VIAL IVP SCH (06:11)
[2019-01-30] MEDS: hydrALAZINE 25 MG TABLET PO SCH ×2 (08:51→20:02)
[2019-01-30] MEDS: Aspirin 81 MG TAB.CHEW PO SCH (08:52)
[2019-01-30] MEDS: Isosorbide MONOnitrate (24 HR) 30 MG TAB.ER.24H PO SCH (08:52)
--- NOTE | 2019-01-30 13:27 | Internal Med Progress Note ---
<Johnnie White - Last Filed: 01/30/19 17:37> Hospitalist Progress Note - Encounter Date of Encounter: 01/30/19 - Exam Vitals: Temp Pulse Resp BP Pulse Ox 98.4 F 75 22 155/73 91 01/30/19 15:30 01/30/19 15:00 01/30/19 15:00 01/30/19 15:00 01/30/19 15:00 - Assessment and Plan (1) NSTEMI (non-ST elevated myocardial infarction) Current Visit: Yes Status: Acute (2) ESRD (end stage renal disease) on dialysis Current Visit: Yes Status: Chronic (3) Acute exacerbation of CHF (congestive heart failure) Current Visit: Yes Status: Acute (4) Acute respiratory failure with hypoxia and hypercapnia Current Visit: Yes Status: Resolved (5) Hypotension Current Visit: Yes Status: Resolved (6) Hypertension Current Visit: Yes Status: Chronic - Time Spent with Patient Total time spent is greater than 50% in coordination of care (as documented) at patient's floor/unit and/or counseling patient: Internal Medicine: Result - Labs CBC & Chem 7: 01/30/19 03:15 01/30/19 03:15 Labs: Short CBC 01/30/19 Range/Units 03:15 WBC 12.5 H (4.3-11.1) K/mcL Hgb 9.5 L (11.5-15.4) g/dL Hct 29.2 L (35.3-44.9) % Plt Count 209 (140-400) K/mcL BMP 01/30/19 03:15 Sodium 138 Potassium 3.9 Chloride 98 Carbon Dioxide 29 BUN 34 H Creatinine 4.32 H Glucose 131 H Calcium 8.9 - ABG Interpretation ABG results: ABG ABG pH 7.38 pH Units (7.32-7.45) 01/28/19 05:33 ABG pCO2 43 mmHg (35-45) 01/28/19 05:33 ABG pO2 82 mmHg (85-104) L 01/28/19 05:33 ABG O2 Saturation 96 % (95-98) 01/28/19 05:33 PT/INR, D-dimer PT 13.5 Seconds (9.4-12.1) H 01/27/19 23:45 1340 ng/mLFEU (0-500) H 01/26/19 22:30 Consult Discharge Plan - Plan Referrals: Mohit Cullen MD [Primary Care Provider] - - Attending Attestation I examined this patient and my medical decision-making was reviewed with the Resident Physician on 01/30/19. I agree with the documented findings, disposition and treatment plan as described except to the extent set forth below. Ms Waggoner is currently admitted for acute resp failure. She is s/p extubation. She remains moderate to high risk due to potential for worsening clinical status. Ms Waggoner is resting in bed. She feels her breathing is better today. No CP or SOB now. No GI issues. No fever or chills. Exam alert Comfortable Mucus membranes dry Heart reg - murmur heard Decreased breath sounds. Rales L upper area Abd soft I/P 1. Acute resp failure - improving. 2. ESRD 3. CHF exacerbation - improving Further diagnoses and plan as above. <Claire Rae - Last Filed: 01/31/19 07:54> Hospitalist Progress Note - Encounter Date of Encounter: 01/31/19 Time of Encounter: 13:27 - Subjective Interval History: Seen and examined at bedside. Patient is sitting up in bed watching TV and mariano ears comfortable, in no acute distress. Her youngest son is also present in the room. She reports sleeping well overnight. Denies fevers, chills, nausea, vomiting, abdominal pain, constipation, or diarrhea. She admits to cough without sputum production, but feels like her chest is congested. Shortness of breath improved. Sore throat since extubation. - Exam Vitals: Temp Pulse Resp BP Pulse Ox 98.4 F 74 20 125/53 92 01/30/19 11:00 01/30/19 11:00 01/30/19 11:00 01/30/19 11:00 01/30/19 11:00 Exam: Gen: vital signs reviewed, no acute distress Cardio: Regular rate and rhythm, no lower extremity edema, normal s1/s2 Pulm: decreased breath sounds, R sided rales, no respiratory distress, normal respiratory effort Neuro: AAO x 3, answers questions appropriately, moves all 4 extremities spontaneously, no focal deficits, CN II-XII grossly intact, mentating well Ext: no LE edema, +2/4 pedal pulse - Assessment and Plan (1) Acute exacerbation of CHF (congestive heart failure) Current Visit: Yes Status: Acute Assessment and Plan: Improving Suspect secondary to recent NSTEMI in conjunction with IVF received for hypotension; admitting dx of PNA may have been a factor as well Echo this admission shows LVEF 45-50%, severe pulmonary hypertension estimated RSVP 70 mmHg - HD to help correct fluid balance - Na and fluid restriction - Strict I/O's monitoring (2) Acute respiratory failure with hypoxia and hypercapnia Current Visit: Yes Status: Resolved Assessment and Plan: Resolved Suspect secondary to acute CHF exacerbation in setting of recent NSTEMI complicated by IVF for treatment of hypotension Admitting dx of PNA may have also played a role Intubated 01/28/19 after found unresponsive, successfully extubated the same day (3) NSTEMI (non-ST elevated myocardial infarction) Current Visit: Yes Status: Acute Assessment and Plan: Initial troponin 1.41, peaked at 1.83, trending downward since then LHC deferred by cardiology after Hgb dropped acutely and required 2 units pRBCs; per cadiology note, want GI to evaluate patient before revisiting LHC in this patient Continue BB. ASA, statin, and antihypertensives Sublingual nitro for chest pain PRN (4) ESRD (end stage renal disease) on dialysis Current Visit: Yes Status: Chronic Assessment and Plan: MWF dialysis schedule SCr 4.32 today Est GFR 12, she is able to produce some urine Contributing to decreased troponin clearance Potassium has been WNL Phosphorous noted to be elevated at 6.3 Continue to monitor renal function and electrolytes Nephrology following, recommendations appreciated (5) Hypotension Current Visit: Yes Status: Resolved Assessment and Plan: Resolved, no longer requiring vasopressor support DVT Prophylaxis: Heparin SQ - Time Spent with Patient Total time spent is greater than 50% in coordination of care (as documented) at patient's floor/unit and/or counseling patient: less than 15 minutes Plan of Care Discussed with: family Internal Medicine: Result - Labs CBC & Chem 7: 01/31/19 04:34 01/31/19 04:34 Labs: Short CBC 01/30/19 Range/Units 03:15 WBC 12.5 H (4.3-11.1) K/mcL Hgb 9.5 L (11.5-15.4) g/dL Hct 29.2 L (35.3-44.9) % Plt Count 209 (140-400) K/mcL BMP 01/30/19 03:15 Sodium 138 Potassium 3.9 Chloride 98 Carbon Dioxide 29 BUN 34 H Creatinine 4.32 H Glucose 131 H Calcium 8.9 - ABG Interpretation ABG results: ABG ABG pH 7.38 pH Units (7.32-7.45) 01/28/19 05:33 ABG pCO2 43 mmHg (35-45) 01/28/19 05:33 ABG pO2 82 mmHg (85-104) L 01/28/19 05:33 ABG O2 Saturation 96 % (95-98) 01/28/19 05:33 PT/INR, D-dimer PT 13.5 Seconds (9.4-12.1) H 01/27/19 23:45 1340 ng/mLFEU (0-500) H 01/26/19 22:30 <Johnnie White - Last Filed: 01/30/19 17:37> (3) Acute exacerbation of CHF (congestive heart failure) Qualifiers: Heart failure type: diastolic Qualified Code(s): I50.33 - Acute on chronic diastolic (congestive) heart failure (5) Hypotension Qualifiers: Hypotension type: unspecified hypotension type Qualified Code(s): I95.9 - Hypotension, unspecified (6) Hypertension Qualifiers: Hypertension type: essential hypertension Qualified Code(s): I10 - Essential (primary) hypertension <Claire Rae - Last Filed: 01/31/19 07:54> (1) Acute exacerbation of CHF (congestive heart failure) Qualifiers: Heart failure type: diastolic Qualified Code(s): I50.33 - Acute on chronic diastolic (congestive) heart failure (5) Hypotension Qualifiers: Hypotension type: unspecified hypotension type Qualified Code(s): I95.9 - Hypotension, unspecified
[2019-01-30] MEDS ORDERED: Pregabalin 50 MG CAPSULE PO SCH (15:00)
[2019-01-30] MEDS: Pregabalin 50 MG CAPSULE PO SCH (15:40)
[2019-01-30] MEDS: tiZANidine 4 MG TABLET PO SCH (20:02)
--- NOTE | 2019-01-30 23:48 | Nephrology Progress Note ---
Date of Encounter: 01/30/19 Time of Encounter: 12:00 - Assessment and Plan (1) ESRD (end stage renal disease) on dialysis Current Visit: Yes Status: Chronic s/p HD yesterday with next planned tomorrow. UF has been approx. 3kg each HD session (pt becomes hypotensive after this amount), not overtly fluid overloaded Continue renal diet Lytes stable (2) Acute respiratory distress Current Visit: Yes Status: Acute Resolved, etiology unclear (3) Congestive heart failure Current Visit: Yes Status: Acute Stable. CT chest showed pleural effusions which are not dialyzeable and possible PNA Iv lasix not beneficial at this point with minimal UOP Continue fluid restriction Qualifiers: Heart failure type: unspecified Heart failure chronicity: acute Qualified Code(s): I50.9 - Heart failure, unspecified (4) NSTEMI (non-ST elevated myocardial infarction) Current Visit: Yes Status: Acute Per primary and cardiology (5) Anemia Current Visit: Yes Status: Acute Hgb fairly stable at 9.5, will monitor Transfusion parameters per primary team Qualifiers: Anemia type: iron deficiency Qualified Code(s): D50.9 - Iron deficiency anemia, unspecified Subjective Principal diagnosis: PNA, respiratory failure Interval history: Pt seen and examined with son at bedside now extubated and breathing comfortably Objective - Vital Signs Vital signs: Vital Signs Temp Pulse Resp BP Pulse Ox 01/30/19 23:14 98.1 F 73 16 132/70 95 01/30/19 19:05 97.9 F 69 16 145/73 95 01/30/19 15:30 98.4 F 01/30/19 15:00 75 22 155/73 91 01/30/19 14:00 74 20 138/81 01/30/19 13:00 72 22 139/65 90 01/30/19 12:00 75 20 136/77 91 01/30/19 11:00 98.4 F 74 20 125/53 92 01/30/19 09:00 79 22 94 01/30/19 08:00 76 20 141/79 93 01/30/19 07:00 98.4 F 73 20 132/69 93 01/30/19 06:00 75 22 129/65 01/30/19 03:00 68 22 112/59 01/30/19 01:00 97.6 F 01/30/19 00:29 97.6 F Intake and Output 01/30/19 01/30/19 01/30/19 07:59 15:59 23:59 Intake Total 0 / 800 800 / 800 Output Total 250 / 250 Balance -250 / 550 800 / 550 Intake: Oral 0 / 800 800 / 800 Output: Urine 250 / 250 Other: Meal Lunch Dinner Percent of Meal Consumed 100% 100% Stool Size Large Small Stool Consistency soft formed Stool Color Brown Brown # Bowel Movements 1 1 Weight 64.2 kg Blood Glucose* 117 Patient Weight 01/30/19 23:59 Weight 64.2 kg - General Appearance General appearance: Present: chronically ill, fatigue, frail EENT: Present: ATNC, mucous membranes moist Neck: Present: no JVD, supple Additional Comments: good areation with decreased BS bases bilat Cardiology: Present: no edema, normal S1, normal S2 Dialysis Vascular Access: Arteriovenous Fistula thrill: Yes bruit: Yes Gastrointestinal: Present: no tenderness, no guarding Integumentary: Present: warm and dry Neurologic: Present: no focal deficit Musculoskeletal: Present: no deformities Psychiatric: Present: mood/affect appropriate, cooperative - Lab 01/30/19 03:15 01/30/19 03:15 Consult Discharge Plan - Plan Referrals: Mohit Cullen MD [Primary Care Provider] -
[2019-01-31 05:11] LABS: Hematocrit 31.2 % (35.3-44.9); Hemoglobin 9.9 g/dL (11.5-15.4); Mean Corpuscular HGB Conc 31.7 g/dL (31.6-35.5); Mean Corpuscular Hemoglobin 30.9 pg (28.0-33.3); Mean Corpuscular Volume 97.5 fL (83.0-100.0); Mean Platelet Volume 10.8 fL (9.4-12.4); Platelet Count 236 K/mcL (140-400); Red Cell Distribution Width 16.1 % (11.5-14.5)
[2019-01-31 05:30] LABS: Calcium 8.9 mg/dL (8.6-10.3); Potassium 4.2 mEq/L (3.5-5.1)
[2019-01-31] MEDS: Pantoprazole 40 MG VIAL IVP SCH (05:49)
[2019-01-31] MEDS ORDERED: Albuterol 2.5 MG/3 ML NEBULIZER IH PRN (07:37)
--- NOTE | 2019-01-31 07:55 | Internal Med Progress Note ---
<Johnnie White - Last Filed: 01/31/19 17:58> Hospitalist Progress Note - Encounter Date of Encounter: 01/31/19 - Exam Vitals: Temp Pulse Resp BP Pulse Ox 98.3 F 72 20 114/50 94 01/31/19 16:21 01/31/19 16:21 01/31/19 16:21 01/31/19 16:21 01/31/19 16:21 - Assessment and Plan (1) NSTEMI (non-ST elevated myocardial infarction) Current Visit: Yes Status: Acute (2) ESRD (end stage renal disease) on dialysis Current Visit: Yes Status: Chronic (3) Acute exacerbation of CHF (congestive heart failure) Current Visit: Yes Status: Acute (4) Acute respiratory failure with hypoxia and hypercapnia Current Visit: Yes Status: Resolved (5) Hypotension Current Visit: Yes Status: Resolved (6) Hypertension Current Visit: Yes Status: Chronic - Time Spent with Patient Total time spent is greater than 50% in coordination of care (as documented) at patient's floor/unit and/or counseling patient: Internal Medicine: Result - Labs CBC & Chem 7: 01/31/19 04:34 01/31/19 04:34 Labs: Short CBC 01/31/19 Range/Units 04:34 WBC 13.3 H (4.3-11.1) K/mcL Hgb 9.9 L (11.5-15.4) g/dL Hct 31.2 L (35.3-44.9) % Plt Count 236 (140-400) K/mcL BMP 01/31/19 04:34 Sodium 140 Potassium 4.2 Chloride 99 Carbon Dioxide 22 L BUN 60 H Creatinine 5.95 H Glucose 119 H Calcium 8.9 - ABG Interpretation ABG results: ABG ABG pH 7.38 pH Units (7.32-7.45) 01/28/19 05:33 ABG pCO2 43 mmHg (35-45) 01/28/19 05:33 ABG pO2 82 mmHg (85-104) L 01/28/19 05:33 ABG O2 Saturation 96 % (95-98) 01/28/19 05:33 PT/INR, D-dimer PT 13.5 Seconds (9.4-12.1) H 01/27/19 23:45 1340 ng/mLFEU (0-500) H 01/26/19 22:30 Consult Discharge Plan - Plan Referrals: Mohit Cullen MD [Primary Care Provider] - - Attending Attestation I examined this patient and my medical decision-making was reviewed with the Resident Physician on 01/31/19. I agree with the documented findings, disposition and treatment plan as described except to the extent set forth below. Ms Waggoner is currently admitted for acute resp failure. She remains moderate to high risk due to potential for worsening clinical status. Ms Waggoner is in dialysis at this time. No fever or chills. No CP or SOB today. Waiting PT and OT recommendations for rehab. Exam alert Comfortable Mucus membranes dry Heart not tachy No wheeze abd soft I/P 1. Resp failure - improving. 2. ESRD 3. PT/OT evals pending Further diagnoses and plan as above. <Claire Rae - Last Filed: 01/31/19 20:54> Hospitalist Progress Note - Encounter Date of Encounter: 01/31/19 Time of Encounter: 09:55 - Subjective Interval History: Seen and examined at bedside this morning. No overnight events reported, slept well. Using incentive spirometery. Has cough, but unable to bring up much sputu m, she feels like it's stuck in her chest. She otherwise has no complaints. - Exam Vitals: Temp Pulse Resp BP Pulse Ox 98.2 F 71 20 155/83 91 01/31/19 06:58 01/31/19 06:58 01/31/19 06:58 01/31/19 06:58 01/31/19 06:58 Exam: Gen: vital signs reviewed, no acute distress Cardio: Regular rate and rhythm, no lower extremity edema, normal s1/s2 Pulm: decreased breath sounds, R sided rales, no respiratory distress, slightly increased respiratory effort Neuro: AAO x 3, answers questions appropriately, moves all 4 extremities spontaneously, no focal deficits, CN II-XII grossly intact, mentating well Ext: no LE edema, +2/4 pedal pulse - Assessment and Plan (1) Acute exacerbation of CHF (congestive heart failure) Current Visit: Yes Status: Acute Assessment and Plan: Improving Suspect secondary to recent NSTEMI in conjunction with IVF received for hypotension Echo this admission shows LVEF 45-50%, severe pulmonary hypertension estimated RSVP 70 mmHg - ESRD, unable to diuresis - Nephro following for HD and fluid removal Plan - HD to help correct fluid balance - Na and fluid restriction - Strict I/O's monitoring (2) Acute respiratory failure with hypoxia and hypercapnia Current Visit: Yes Status: Resolved Assessment and Plan: Resolved Suspect secondary to acute CHF exacerbation in setting of recent NSTEMI complicated by IVF for treatment of hypotension Admitting dx of PNA may have also played a role, less likely and abx have been stopped Intubated 01/28/19 after found unresponsive, successfully extubated the same day Started duonebs and inhaled saline, mucinex for congestion (3) NSTEMI (non-ST elevated myocardial infarction) Current Visit: Yes Status: Acute Assessment and Plan: Initial troponin 1.41, peaked at 1.83, trending downward since then LHC deferred by cardiology after Hgb dropped acutely and required 2 units pRBCs; per cadiology note, want GI to evaluate patient before revisiting LHC in this patient Continue BB. ASA, statin, and antihypertensives Sublingual nitro for chest pain PRN (4) ESRD (end stage renal disease) on dialysis Current Visit: Yes Status: Chronic Assessment and Plan: MWF dialysis schedule Est GFR 12, she is able to produce some urine Contributing to decreased troponin clearance Potassium has been WNL Phosphorous noted to be elevated at 6.3 Continue to monitor renal function and electrolytes Nephrology following, recommendations appreciated (5) Hypotension Current Visit: Yes Status: Resolved Assessment and Plan: resolved as above, previously required vasopressors DVT Prophylaxis: Heparin SQ - Time Spent with Patient Total time spent is greater than 50% in coordination of care (as documented) at patient's floor/unit and/or counseling patient: Internal Medicine: Result - Labs CBC & Chem 7: 01/31/19 04:34 01/31/19 04:34 Labs: Short CBC 01/31/19 Range/Units 04:34 WBC 13.3 H (4.3-11.1) K/mcL Hgb 9.9 L (11.5-15.4) g/dL Hct 31.2 L (35.3-44.9) % Plt Count 236 (140-400) K/mcL BMP 01/31/19 04:34 Sodium 140 Potassium 4.2 Chloride 99 Carbon Dioxide 22 L BUN 60 H Creatinine 5.95 H Glucose 119 H Calcium 8.9 - ABG Interpretation ABG results: ABG ABG pH 7.38 pH Units (7.32-7.45) 01/28/19 05:33 ABG pCO2 43 mmHg (35-45) 01/28/19 05:33 ABG pO2 82 mmHg (85-104) L 01/28/19 05:33 ABG O2 Saturation 96 % (95-98) 01/28/19 05:33 PT/INR, D-dimer PT 13.5 Seconds (9.4-12.1) H 01/27/19 23:45 1340 ng/mLFEU (0-500) H 01/26/19 22:30 <Johnnie White - Last Filed: 01/31/19 17:58> (3) Acute exacerbation of CHF (congestive heart failure) Qualifiers: Heart failure type: diastolic Qualified Code(s): I50.33 - Acute on chronic diastolic (congestive) heart failure (5) Hypotension Qualifiers: Hypotension type: unspecified hypotension type Qualified Code(s): I95.9 - Hypotension, unspecified (6) Hypertension Qualifiers: Hypertension type: essential hypertension Qualified Code(s): I10 - Essential (primary) hypertension <Claire Rae - Last Filed: 01/31/19 20:54> (1) Acute exacerbation of CHF (congestive heart failure) Qualifiers: Heart failure type: diastolic Qualified Code(s): I50.33 - Acute on chronic diastolic (congestive) heart failure (5) Hypotension Qualifiers: Hypotension type: unspecified hypotension type Qualified Code(s): I95.9 - Hyp otension, unspecified
[2019-01-31] MEDS ORDERED: *HR* Heparin 10,000 UNIT/10 ML VIAL IV PRN (08:10)
[2019-01-31] MEDS ORDERED: 0.9 % Sodium Chloride 250 ML IVC PRN (08:10)
[2019-01-31] MEDS ORDERED: 0.9 % Sodium Chloride 1,000 ML PRIME SCH (08:15)
[2019-01-31] MEDS: Isosorbide MONOnitrate (24 HR) 30 MG TAB.ER.24H PO SCH (10:23)
[2019-01-31] MEDS: Aspirin 81 MG TAB.CHEW PO SCH (10:23)
--- NOTE | 2019-01-31 10:33 | Electrocardiograph Report ---
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
--- NOTE | 2019-01-31 11:49 | Nephrology Progress Note ---
Date of Encounter: 01/31/19 Time of Encounter: 09:15 - Assessment and Plan (1) ESRD (end stage renal disease) on dialysis Current Visit: Yes Status: Chronic - HD planned for today. UF has been approx. 3kg each HD session (pt becomes hypotensive after this amount), not overtly fluid overloaded. - Continue renal diet. (2) Congestive heart failure Current Visit: Yes Status: Acute Stable. CT chest showed pleural effusions which are not dialyzeable and possible PNA. 0.2 cc/kg/hr of UOP. - IV lasix not beneficial at this point with minimal UOP. - Continue fluid restriction. Qualifiers: Heart failure type: unspecified Heart failure chronicity: acute Qualified Code(s): I50.9 - Heart failure, unspecified (3) NSTEMI (non-ST elevated myocardial infarction) Current Visit: Yes Status: Acute Per primary and cardiology (4) Anemia Current Visit: Yes Status: Acute Hgb stable at 9.9 (was 9.5 yesterday). - Transfusion parameters per primary team Qualifiers: Anemia type: iron deficiency Qualified Code(s): D50.9 - Iron deficiency anemia, unspecified Subjective Principal diagnosis: PNA, respiratory failure Interval history: When seen today, patient denies any chest pain. Admits to minimal SOB. Admits to dry cough. Admits to new onset wheezing. Denies any nausea or vomiting. Denies any abdominal pain. Objective - Vital Signs Vital signs: Vital Signs Temp Pulse Resp BP Pulse Ox 01/31/19 11:30 161/80 01/31/19 11:13 97.9 F 20 164/82 01/31/19 06:58 98.2 F 71 20 155/83 91 01/31/19 03:55 98.4 F 69 16 158/69 91 01/30/19 23:14 98.1 F 73 16 132/70 95 01/30/19 19:05 97.9 F 69 16 145/73 95 01/30/19 15:30 98.4 F 01/30/19 15:00 75 22 155/73 91 01/30/19 14:00 74 20 138/81 01/30/19 13:00 72 22 139/65 90 01/30/19 12:00 75 20 136/77 91 Intake and Output 01/30/19 01/31/19 01/31/19 23:59 07:59 15:59 Intake Total 800 / 800 600 / 600 Output Total 0 / 0 0 / 0 Balance 800 / 550 0 / 600 600 / 600 Intake: Oral 800 / 800 0 / 0 Intake, Rinseback and Flushes 600 / 600 Output: Urine 0 / 0 0 / 0 Other: Meal Dinner Percent of Meal Consumed 100% Stool Size Small Stool Consistency formed Stool Color Brown # Bowel Movements 1 Hemodialysis Net Fluid Removed 302 (mL) - General Appearance General appearance: Present: well-developed, well-nourished, appears started age EENT: Present: PERRL, mucous membranes moist Neck: Present: no JVD Respiratory: Present: clear Cardiology: Present: no murmurs, no rub, no gallops, no edema, regular rate, regular rhythm, normal S1, normal S2 Gastrointestinal: Present: normoactive bowel sounds, no tenderness, no guarding, no organomegaly, no masses Integumentary: Present: no rash, warm and dry Neurologic: Present: no focal deficit, alert and oriented x3 Musculoskeletal: Present: no deformities, no erythema, no cyanosis, no clubbing Psychiatric: Present: mood/affect appropriate - Lab 01/31/19 04:34 01/31/19 04:34 Most recent lab results 01/31/19 04:34 Calcium 8.9 Consult Discharge Plan - Plan Referrals: Mohit Cullen MD [Primary Care Provider] -
--- NOTE | 2019-01-31 13:09 | Nephrology Progress Note ---
Date of Encounter: 01/31/19 Time of Encounter: 13:09 - Assessment and Plan (1) NSTEMI (non-ST elevated myocardial infarction) Current Visit: Yes Status: Acute (2) ESRD (end stage renal disease) on dialysis Current Visit: Yes Status: Chronic (3) Congestive heart failure Current Visit: Yes Status: Acute Qualifiers: Heart failure type: unspecified Heart failure chronicity: acute Qualified Code(s): I50.9 - Heart failure, unspecified (4) Acute respiratory distress Current Visit: Yes Status: Acute (5) Anemia Current Visit: Yes Status: Acute Qualifiers: Anemia type: iron deficiency Qualified Code(s): D50.9 - Iron deficiency anemia, unspecified Subjective Principal diagnosis: PNA, respiratory failure Objective - Vital Signs Vital signs: Vital Signs Temp Pulse Resp BP Pulse Ox 01/31/19 12:15 144/66 01/31/19 12:00 161/83 01/31/19 11:45 162/84 01/31/19 11:30 161/80 01/31/19 11:13 97.9 F 20 164/82 01/31/19 06:58 98.2 F 71 20 155/83 91 01/31/19 03:55 98.4 F 69 16 158/69 91 01/30/19 23:14 98.1 F 73 16 132/70 95 01/30/19 19:05 97.9 F 69 16 145/73 95 01/30/19 15:30 98.4 F 01/30/19 15:00 75 22 155/73 91 01/30/19 14:00 74 20 138/81 Intake and Output 01/30/19 01/31/19 01/31/19 23:59 07:59 15:59 Intake Total 800 / 800 600 / 600 Output Total 0 / 0 0 / 0 Balance 800 / 550 0 / 600 600 / 600 Intake: Oral 800 / 800 0 / 0 Intake, Rinseback and Flushes 600 / 600 Output: Urine 0 / 0 0 / 0 Other: Meal Dinner Percent of Meal Consumed 100% Stool Size Small Stool Consistency formed Stool Color Brown # Bowel Movements 1 Hemodialysis Net Fluid Removed 1204 (mL) - Lab 01/31/19 04:34 01/31/19 04:34 Most recent lab results 01/31/19 04:34 Calcium 8.9 Consult Discharge Plan - Plan Referrals: Mohit Cullen MD [Primary Care Provider] -
[2019-01-31] MEDS: hydrALAZINE 25 MG TABLET PO SCH ×2 (14:10→21:18)
[2019-01-31] MEDS: Pregabalin 50 MG CAPSULE PO SCH (14:10)
[2019-01-31] MEDS: tiZANidine 4 MG TABLET PO SCH (21:18)
[2019-02-01 08:43] LABS: Hematocrit 32.7 % (35.3-44.9); Hemoglobin 10.5 g/dL (11.5-15.4); Mean Corpuscular HGB Conc 32.1 g/dL (31.6-35.5); Mean Corpuscular Hemoglobin 31.3 pg (28.0-33.3); Mean Corpuscular Volume 97.3 fL (83.0-100.0); Mean Platelet Volume 10.9 fL (9.4-12.4); Platelet Count 177 K/mcL (140-400); Red Blood Count 3.36 M/mcL (3.82-4.97)
--- NOTE | 2019-02-01 08:55 | Internal Med Progress Note ---
Hospitalist Progress Note - Encounter Date of Encounter: 02/01/19 Time of Encounter: 08:30 - Subjective Interval History: Ms Waggnoer is currently admitted for acute respiratory failure due to volume overload. She remains moderate to high risk due to potential for worsening clinical and respiratory status. Ms Waggoner is doing OK today. She just ate breakfast. Breathing is improving. Still has a lot of chest congestion that is hard to mobilize. No fever or chills. Awaiting PT/OT consults. - Exam Vitals: Temp Pulse Resp BP Pulse Ox 98.5 F 69 16 140/55 93 02/01/19 06:39 02/01/19 06:39 02/01/19 06:39 02/01/19 06:39 02/01/19 06:39 Exam: General: Alert and oriented. Comfortable at this time. Sitting up in bed. Skin: No rash. H: Normocephalic. EENT: EOMI, pupils equal. Mucus membranes moist. Cardiovascular: Normal S1 & S2, no murmurs heard. Not tachy Lungs: Decreased breath sounds. No wheeze or rales heard. Abdomen: Soft, non-tender, Normal bowel sounds. Extremities: No deformity, no edema or tenderness, Neurological: Normal cognition and motor skills. Pulses: radial pulses normal +2. Rest of the physical exam is non contributory - Assessment and Plan (1) Acute respiratory failure with hypoxia and hypercapnia Current Visit: Yes Status: Resolved Assessment and Plan: Respiratory failure on admission due to CHF/NSTEMI. Doing OK at this time. Appears baseline. At this point I am waiting PT/OT evals to determine if patient needs SNF versus HHC. (2) Acute exacerbation of CHF (congestive heart failure) Current Visit: Yes Status: Acute Assessment and Plan: Clinically has been improving with dialysis. Appears to be at baseline at this time. (3) NSTEMI (non-ST elevated myocardial infarction) Current Visit: Yes Status: Resolved Assessment and Plan: Resolved. (4) ESRD (end stage renal disease) on dialysis Current Visit: Yes Status: Chronic Assessment and Plan: Chronic issue. (5) Hypotension Current Visit: Yes Status: Resolved (6) Hypertension Current Visit: Yes Status: Chronic Assessment and Plan: Controlled at this time. (7) Anemia Current Visit: Yes Status: Chronic Assessment and Plan: Iron supplement - Time Spent with Patient Total time spent is greater than 50% in coordination of care (as documented) at patient's floor/unit and/or counseling patient: Internal Medicine: Result - Labs CBC & Chem 7: 02/01/19 07:44 02/01/19 07:44 Labs: Short CBC 02/01/19 Range/Units 07:44 WBC 12.5 H (4.3-11.1) K/mcL Hgb 10.5 L (11.5-15.4) g/dL Hct 32.7 L (35.3-44.9) % Plt Count 177 (140-400) K/mcL - ABG Interpretation ABG results: ABG ABG pH 7.38 pH Units (7.32-7.45) 01/28/19 05:33 ABG pCO2 43 mmHg (35-45) 01/28/19 05:33 ABG pO2 82 mmHg (85-104) L 01/28/19 05:33 ABG O2 Saturation 96 % (95-98) 01/28/19 05:33 PT/INR, D-dimer PT 13.5 Seconds (9.4-12.1) H 01/27/19 23:45 1340 ng/mLFEU (0-500) H 01/26/19 22:30 Consult Discharge Plan - Plan Referrals: Mohit Cullen MD [Primary Care Provider] - (2) Acute exacerbation of CHF (congestive heart failure) Qualifiers: Heart failure type: diastolic Qualified Code(s): I50.33 - Acute on chronic diastolic (congestive) heart failure (5) Hypotension Qualifiers: Hypotension type: unspecified hypotension type Qualified Code(s): I95.9 - Hypotension, unspecified (6) Hypertension Qualifiers: Hypertension type: essential hypertension Qualified Code(s): I10 - Essential (primary) hypertension (7) Anemia Qualifiers: Anemia type: due to chronic kidney disease Chronic kidney disease stage: on chronic dialysis Qualified Code(s): N18.6 - End stage renal disease; D63.1 - Anemia in chronic kidney disease; Z99.2 - Dependence on renal dialysis
[2019-02-01 09:02] LABS: Calcium 9.6 mg/dL (8.6-10.3); Potassium 3.8 mEq/L (3.5-5.1)
[2019-02-01] MEDS: Aspirin 81 MG TAB.CHEW PO SCH (09:26)
[2019-02-01] MEDS: hydrALAZINE 25 MG TABLET PO SCH ×2 (09:26→21:37)
[2019-02-01] MEDS: Isosorbide MONOnitrate (24 HR) 30 MG TAB.ER.24H PO SCH (09:26)
--- NOTE | 2019-02-01 09:35 | Nephrology Progress Note ---
Date of Encounter: 02/01/19 Time of Encounter: 09:35 - Assessment and Plan (1) ESRD (end stage renal disease) on dialysis Current Visit: Yes Status: Chronic HD MWF. Renal vitamins. Renal dose medications. Renal diet. Additional dialysis and ultrafiltration as needed. No need for dialysis today. (2) NSTEMI (non-ST elevated myocardial infarction) Current Visit: Yes Status: Acute (3) Congestive heart failure Current Visit: Yes Status: Acute Qualifiers: Qualified Code(s): I50.9 - Heart failure, unspecified (4) Acute respiratory distress Current Visit: Yes Status: Acute (5) Anemia Current Visit: Yes Status: Acute Hgb fairly stable. will monitor Transfusion parameters per primary team Qualifiers: Qualified Code(s): D50.9 - Iron deficiency anemia, unspecified Subjective Principal diagnosis: PNA, respiratory failure Interval history: Patient seen. Her son is at her bedside. She has no new complaint. She denies chest pain or shortness of breath. Review of systems otherwise is stable. Objective - Vital Signs Vital signs: Vital Signs Temp Pulse Resp BP Pulse Ox 02/01/19 06:39 98.5 F 69 16 140/55 93 02/01/19 04:16 98.2 F 63 17 134/60 93 01/31/19 23:44 98.2 F 57 16 116/49 94 01/31/19 21:16 69 143/64 01/31/19 19:06 98.1 F 68 16 124/54 93 01/31/19 16:21 98.3 F 72 20 114/50 94 01/31/19 14:30 97.3 F L 18 166/86 01/31/19 14:15 116/56 01/31/19 14:00 145/72 01/31/19 13:45 167/74 01/31/19 13:30 170/79 01/31/19 13:15 151/66 01/31/19 13:00 159/72 01/31/19 12:45 148/68 01/31/19 12:30 156/80 01/31/19 12:15 144/66 01/31/19 12:00 161/83 01/31/19 11:45 162/84 01/31/19 11:30 161/80 01/31/19 11:13 97.9 F 20 164/82 Intake and Output 01/31/19 02/01/19 02/01/19 23:59 07:59 15:59 Intake Total 360 / 360 Output Total 0 / 3600 Balance 0 / -3000 360 / 360 Intake: Oral 360 / 360 Output: Urine 0 / 0 Other: Meal Breakfast Percent of Meal Consumed 100% - General Appearance General appearance: Present: well-developed, well-nourished EENT: Present: ATNC Cardiology: Present: regular rate Neurologic: Present: alert and oriented x3 Musculoskeletal: Present: no cyanosis Psychiatric: Present: mood/affect appropriate - Lab 02/01/19 07:44 02/01/19 07:44 Most recent lab results 02/01/19 07:44 Calcium 9.6 Consult Discharge Plan - Plan Referrals: Mohit Cullen MD [Primary Care Provider] -
[2019-02-01] MEDS: Pregabalin 50 MG CAPSULE PO SCH (15:11)
[2019-02-01] MEDS: tiZANidine 4 MG TABLET PO SCH (21:36)
[2019-02-02 07:48] LABS: Hematocrit 32.5 % (35.3-44.9); Hemoglobin 10.4 g/dL (11.5-15.4); Mean Corpuscular Volume 96.7 fL (83.0-100.0); Platelet Count 191 K/mcL (140-400); Red Blood Count 3.36 M/mcL (3.82-4.97); Red Cell Distribution Width 15.9 % (11.5-14.5)
[2019-02-02 08:07] LABS: Calcium 9.4 mg/dL (8.6-10.3)
[2019-02-02] MEDS: hydrALAZINE 25 MG TABLET PO SCH ×2 (08:29→20:46)
[2019-02-02] MEDS: Isosorbide MONOnitrate (24 HR) 30 MG TAB.ER.24H PO SCH (08:29)
[2019-02-02] MEDS: Aspirin 81 MG TAB.CHEW PO SCH (08:29)
--- NOTE | 2019-02-02 08:39 | Internal Med Progress Note ---
Hospitalist Progress Note - Encounter Date of Encounter: 02/02/19 Time of Encounter: 08:36 - Subjective Interval History: Ms Waggoner is currently admitted for acute resp failure and CHF. She remains moderate to high risk due to potential for worsening clinical and respiratory status. Ms Waggoner is doing OK but still has a lot of congestion in her chest. No fever or chills but WBC still elevated. Coughing but can't get secretions mobilized. No abd pain. No diarrhea. Still not seen by PT/OT. - Exam Vitals: Temp Pulse Resp BP Pulse Ox 98.2 F 72 15 157/67 94 02/02/19 06:46 02/02/19 06:46 02/02/19 06:46 02/02/19 06:46 02/02/19 06:46 Exam: General: Alert and oriented. Comfortable at this time. Sitting up in bed. Just finished breakfast. Skin: No rash. No wounds noted. H: Normocephalic. EENT: EOMI, pupils equal. Mucus membranes moist. Cardiovascular: Normal S1 & S2, Not tachy Lungs: Decreased breath sounds. Rhonchi noted anteriorly bilaterally. Moist cough. Scant end exp wheeze on L. Abdomen: Soft, non-tender, Normal bowel sounds. Extremities: No deformity, no edema or tenderness, Neurological: Normal cognition and motor skills. Pulses: radial pulses normal +2. Rest of the physical exam is non contributory - Assessment and Plan (1) Acute respiratory failure with hypoxia and hypercapnia Current Visit: Yes Status: Resolved Assessment and Plan: Respiratory failure on admission due to CHF/NSTEMI. Continues to have a lot of congestion/cough. Check PA and lat CXR today. Due to leukocytosis will add short course of abx. (2) Acute exacerbation of CHF (congestive heart failure) Current Visit: Yes Status: Resolved Assessment and Plan: Essentially back to baseline at this time. Continue home meds and dialysis. (3) NSTEMI (non-ST elevated myocardial infarction) Current Visit: Yes Status: Resolved Assessment and Plan: Resolved. (4) ESRD (end stage renal disease) on dialysis Current Visit: Yes Status: Chronic Assessment and Plan: Chronic issue. (5) Hypertension Current Visit: Yes Status: Chronic (6) Anemia Current Visit: Yes Status: Chronic Assessment and Plan: H/H appears to be baseline and stable. (7) Pneumonia Current Visit: Yes Status: Suspected Assessment and Plan: Initially treated with abx. Continues with leukocytosis and congestion Recheck CXR today. May restart abx today. Addend: CXR shows density retrocardiac, Will treat with abx. - Time Spent with Patient Total time spent is greater than 50% in coordination of care (as documented) at patient's floor/unit and/or counseling patient: Internal Medicine: Result - Labs CBC & Chem 7: 02/02/19 07:24 02/02/19 07:24 Labs: Short CBC 02/01/19 02/02/19 Range/Units 07:44 07:24 WBC 12.5 H 14.5 H (4.3-11.1) K/mcL Hgb 10.5 L 10.4 L (11.5-15.4) g/dL Hct 32.7 L 32.5 L (35.3-44.9) % Plt Count 177 191 (140-400) K/mcL BMP 02/01/19 02/02/19 07:44 07:24 Sodium 138 137 Potassium 3.8 4.0 Chloride 95 L 96 L Carbon Dioxide 28 25 BUN 45 H 67 H Creatinine 4.93 H 6.65 H Glucose 108 H 106 H Calcium 9.6 9.4 - ABG Interpretation ABG results: ABG ABG pH 7.38 pH Units (7.32-7.45) 01/28/19 05:33 ABG pCO2 43 mmHg (35-45) 01/28/19 05:33 ABG pO2 82 mmHg (85-104) L 01/28/19 05:33 ABG O2 Saturation 96 % (95-98) 01/28/19 05:33 PT/INR, D-dimer PT 13.5 Seconds (9.4-12.1) H 01/27/19 23:45 1340 ng/mLFEU (0-500) H 01/26/19 22:30 Consult Discharge Plan - Plan Referrals: Mohit Cullen MD [Primary Care Provider] - (2) Acute exacerbation of CHF (congestive heart failure) Qualifiers: Heart failure type: diastolic Qualified Code(s): I50.33 - Acute on chronic diastolic (congestive) heart failure (5) Hypertension Qualifiers: Hypertension type: essential hypertension Qualified Code(s): I10 - Essential (primary) hypertension (6) Anemia Qualifiers: Anemia type: due to chronic kidney disease Chronic kidney disease stage: on chronic dialysis Qualified Code(s): N18.6 - End stage renal disease; D63.1 - Anemia in chronic kidney disease; Z99.2 - Dependence on renal dialysis (7) Pneumonia Qualifiers: Pneumonia type: due to unspecified organism Laterality: bilateral Lung location: unspecified part of lung Qualified Code(s): J18.9 - Pneumonia, unspecified organism
[2019-02-02] MEDS: NIFEdipine XL (24 HR) 60 MG TAB.ER.24 PO SCH (09:54)
--- NOTE | 2019-02-02 11:08 | Nephrology Progress Note ---
Date of Encounter: 02/02/19 Time of Encounter: 11:08 - Assessment and Plan (1) ESRD (end stage renal disease) on dialysis Current Visit: Yes Status: Chronic HD MWF. Renal vitamins. Renal dose medications. Renal diet. Additional dialysis and ultrafiltration as needed. No need for dialysis today. Patient awaiting PT evaluation for discharge disposition. (2) NSTEMI (non-ST elevated myocardial infarction) Current Visit: Yes Status: Resolved (3) Congestive heart failure Current Visit: Yes Status: Acute Qualifiers: Heart failure type: unspecified Heart failure chronicity: acute Qualified Code(s): I50.9 - Heart failure, unspecified (4) Acute respiratory distress Current Visit: Yes Status: Acute (5) Anemia Current Visit: Yes Status: Chronic Hgb fairly stable. will monitor. Transfusion parameters per primary team. Qualifiers: Anemia type: due to chronic kidney disease Chronic kidney disease stage: on chronic dialysis Qualified Code(s): N18.6 - End stage renal disease; D63.1 - Anemia in chronic kidney disease; Z99.2 - Dependence on renal dialysis Subjective Principal diagnosis: PNA, respiratory failure Interval history: Patient seen. She has no new complaint. She is looking through [employer]. She denies chest pain or shortness of breath. Review of systems otherwise is stable . Objective - Vital Signs Vital signs: Vital Signs Temp Pulse Resp BP Pulse Ox 02/02/19 10:45 98.3 F 64 16 138/52 94 02/02/19 06:46 98.2 F 72 15 157/67 94 02/02/19 03:52 98.6 F 72 16 151/63 91 02/01/19 23:53 98.2 F 66 16 149/57 93 02/01/19 19:05 98.2 F 64 16 150/62 94 02/01/19 15:45 98.7 F 63 15 138/54 93 Intake and Output 02/01/19 02/02/19 02/02/19 23:59 07:59 15:59 Intake Total 240 / 240 Output Total 0 / 0 Balance 240 / 240 Intake: Oral 240 / 240 Output: Urine 0 / 0 Other: Meal Breakfast Percent of Meal Consumed 100% Weight 63.5 kg Patient Weight 02/02/19 23:59 Weight 63.5 kg - General Appearance General appearance: Present: well-developed, well-nourished EENT: Present: ATNC Neck: Present: supple Cardiology: Present: regular rate Integumentary: Present: warm and dry Neurologic: Present: alert and oriented x3 Musculoskeletal: Present: no cyanosis Psychiatric: Present: mood/affect appropriate - Lab 02/02/19 07:24 02/02/19 07:24 Most recent lab results 02/02/19 07:24 Calcium 9.4 Consult Discharge Plan - Plan Referrals: Mohit Cullen MD [Primary Care Provider] -
[2019-02-02] MEDS ORDERED: levoFLOXacin 250 MG TABLET PO SCH (12:15)
[2019-02-02] MEDS: Pregabalin 50 MG CAPSULE PO SCH (15:52)
[2019-02-02] MEDS: tiZANidine 4 MG TABLET PO SCH (20:46)
[2019-02-03] MEDS: Aspirin 81 MG TAB.CHEW PO SCH (07:47)
[2019-02-03] MEDS ORDERED: 0.9 % Sodium Chloride 250 ML IVC PRN (08:10)
[2019-02-03] MEDS ORDERED: 0.9 % Sodium Chloride 2,000 ML ONE (08:14)
[2019-02-03] MEDS ORDERED: 0.9 % Sodium Chloride 1,000 ML PRIME SCH (08:15)
--- NOTE | 2019-02-03 08:53 | Internal Med Progress Note ---
<Claire Rae - Last Filed: 02/03/19 13:59> Hospitalist Progress Note - Encounter Date of Encounter: 02/03/19 Time of Encounter: 08:53 - Subjective Interval History: Seen and examined at bedside. She is resting in bedside chair, in no acute distress. No overnight events reported. - Exam Vitals: Temp Pulse Resp BP Pulse Ox 98.2 F 69 16 136/56 95 02/03/19 06:55 02/03/19 06:55 02/03/19 06:55 02/03/19 06:55 02/03/19 06:55 - Assessment and Plan (1) Acute exacerbation of CHF (congestive heart failure) Current Visit: Yes Status: Resolved (2) Acute respiratory failure with hypoxia and hypercapnia Current Visit: Yes Status: Resolved (3) NSTEMI (non-ST elevated myocardial infarction) Current Visit: Yes Status: Resolved (4) ESRD (end stage renal disease) on dialysis Current Visit: Yes Status: Chronic (5) Hypotension Current Visit: Yes Status: Resolved - Time Spent with Patient Total time spent is greater than 50% in coordination of care (as documented) at patient's floor/unit and/or counseling patient: Internal Medicine: Result - Labs CBC & Chem 7: 02/03/19 09:09 02/03/19 09:09 - ABG Interpretation ABG results: ABG ABG pH 7.38 pH Units (7.32-7.45) 01/28/19 05:33 ABG pCO2 43 mmHg (35-45) 01/28/19 05:33 ABG pO2 82 mmHg (85-104) L 01/28/19 05:33 ABG O2 Saturation 96 % (95-98) 01/28/19 05:33 PT/INR, D-dimer PT 13.5 Seconds (9.4-12.1) H 01/27/19 23:45 1340 ng/mLFEU (0-500) H 01/26/19 22:30 - Impressions Impressions Chest X-Ray 02/02/19 09:01 IMPRESSION: Increased lung markings, likely related to mild bronchitis or mild pulmonary vascular congestion, markedly improved. Minimal bilateral pleural effusions, stable. Stable retrocardiac airspace opacity. Recommend follow-up to resolution. D/ / Gerardo Olivares MD / Gerardo Olivares MD Interpreting Provider: Gerardo Olivares MD Consult Discharge Plan - Plan Referrals: Mohit Cullen MD [Primary Care Provider] - <Johnnie White - Last Filed: 02/03/19 14:19> Hospitalist Progress Note - Encounter Date of Encounter: 02/03/19 - Exam Vitals: Temp Pulse Resp BP Pulse Ox 99.0 F 69 18 121/57 95 02/03/19 08:55 02/03/19 06:55 02/03/19 08:55 02/03/19 11:40 02/03/19 06:55 - Assessment and Plan (1) Acute respiratory failure with hypoxia and hypercapnia Current Visit: Yes Status: Resolved (2) Acute exacerbation of CHF (congestive heart failure) Current Visit: Yes Status: Resolved (3) NSTEMI (non-ST elevated myocardial infarction) Current Visit: Yes Status: Resolved (4) ESRD (end stage renal disease) on dialysis Current Visit: Yes Status: Chronic (5) Hypertension Current Visit: Yes Status: Chronic (6) Anemia Current Visit: Yes Status: Chronic (7) Pneumonia Current Visit: Yes Status: Suspected - Time Spent with Patient Total time spent is greater than 50% in coordination of care (as documented) at patient's floor/unit and/or counseling patient: Internal Medicine: Result - Labs CBC & Chem 7: 02/03/19 09:09 02/03/19 09:09 Labs: Short CBC 02/03/19 Range/Units 09:09 WBC 12.6 H (4.3-11.1) K/mcL Hgb 10.3 L (11.5-15.4) g/dL Hct 31.2 L (35.3-44.9) % Plt Count 182 (140-400) K/mcL BMP 02/03/19 09:09 Sodium 138 Potassium 3.6 Chloride 97 L Carbon Dioxide 26 BUN 57 H Creatinine 5.39 H Glucose 163 H Calcium 9.1 - ABG Interpretation ABG results: ABG ABG pH 7.38 pH Units (7.32-7.45) 01/28/19 05:33 ABG pCO2 43 mmHg (35-45) 01/28/19 05:33 ABG pO2 82 mmHg (85-104) L 01/28/19 05:33 ABG O2 Saturation 96 % (95-98) 01/28/19 05:33 PT/INR, D-dimer PT 13.5 Seconds (9.4-12.1) H 01/27/19 23:45 1340 ng/mLFEU (0-500) H 01/26/19 22:30 - Attending Attestation I examined this patient and my medical decision-making was reviewed with the Resident Physician on 02/03/19. I agree with the documented findings, disposition and treatment plan as described except to the extent set forth below. Ms Waggoner is currently admitted for resp failure. She remains moderate to high risk due to potential for worsening clinical status. Ms Waggoner is doing OK. She is in dialysis. Awaiting PT/OT recommendations. Exam alert Comfortable Mucus membranes dry Not tachycardic No wheeze abd soft I/P 1. Resp failure - improved 2. CHF - improved Awaiting therapy for discharge plans. Further diagnoses and plan as above. <Claire Rae - Last Filed: 02/03/19 13:59> (1) Acute exacerbation of CHF (congestive heart failure) Qualifiers: Heart failure type: diastolic Qualified Code(s): I50.33 - Acute on chronic diastolic (congestive) heart failure (5) Hypotension Qualifiers: Hypotension type: unspecified hypotension type Qualified Code(s): I95.9 - Hypotension, unspecified <Johnnie White - Last Filed: 02/03/19 14:19> (2) Acute exacerbation of CHF (congestive heart failure) Qualifiers: Heart failure type: diastolic Qualified Code(s): I50.33 - Acute on chronic diastolic (congestive) heart failure (5) Hypertension Qualifiers: Hypertension type: essential hypertension Qualified Code(s): I10 - Essential (primary) hypertension (6) Anemia Qualifiers: Anemia type: due to chronic kidney disease Chronic kidney disease stage: on chronic dialysis Qualified Code(s): N18.6 - End stage renal disease; D63.1 - Anemia in chronic kidney disease; Z99.2 - Dependence on renal dialysis (7) Pneumonia Qualifiers: Pneumonia type: due to unspecified organism Laterality: bilateral Lung location: unspecified part of lung Qualified Code(s): J18.9 - Pneumonia, unspecified organism
--- NOTE | 2019-02-03 09:37 | Nephrology Progress Note ---
Date of Encounter: 02/03/19 Time of Encounter: 09:15 - Assessment and Plan (1) ESRD (end stage renal disease) on dialysis Current Visit: Yes Status: Chronic Hemodialysis Sunday. Renal vitamins. Renally dose medications. - Renal diet. - Additional dialysis and ultrafiltration as needed. - Patient awaiting PT evaluation for discharge disposition. (2) Congestive heart failure Current Visit: Yes Status: Acute Qualifiers: Heart failure type: unspecified Heart failure chronicity: acute Qualified Code(s): I50.9 - Heart failure, unspecified (3) NSTEMI (non-ST elevated myocardial infarction) Current Visit: Yes Status: Resolved (4) Anemia Current Visit: Yes Status: Chronic Qualifiers: Anemia type: due to chronic kidney disease Chronic kidney disease stage: on chronic dialysis Qualified Code(s): N18.6 - End stage renal disease; D63.1 - Anemia in chronic kidney disease; Z99.2 - Dependence on renal dialysis (5) Acute respiratory distress Current Visit: Yes Status: Acute Subjective Principal diagnosis: PNA, respiratory failure Interval history: When seen today patient denies any chest pain or shortness of breath. Denies any fever. Still admits to an occasional productive cough. Denies any abdominal pain. Denies any nausea or vomiting. Denies any swelling in her lower extremities. Objective - Vital Signs Vital signs: Vital Signs Temp Pulse Resp BP Pulse Ox 02/03/19 09:25 147/65 02/03/19 09:10 127/57 02/03/19 08:55 99.0 F 18 125/57 02/03/19 06:55 98.2 F 69 16 136/56 95 02/03/19 04:50 98.8 F 72 16 118/51 95 02/03/19 02:01 97.8 F 67 18 128/62 94 02/02/19 20:42 16 94 02/02/19 20:37 98 F 70 18 126/56 94 02/02/19 16:06 97.7 F 68 17 114/48 92 02/02/19 10:45 98.3 F 64 16 138/52 94 Intake and Output 02/02/19 02/03/19 02/03/19 23:59 07:59 15:59 Intake Total 240 / 720 600 / 600 Balance 240 / 720 600 / 600 Intake: Oral 240 / 720 0 / 0 Intake, Rinseback and Flushes 600 / 600 Other: Meal Dinner Percent of Meal Consumed 95% Stool Size Small Stool Consistency loose Stool Color Brown # Urine Diapers 1 # Bowel Movements 1 Hemodialysis Net Fluid Removed 368 (mL) - General Appearance General appearance: Present: well-developed, well-nourished, appears started age EENT: Present: mucous membranes moist Neck: Present: no JVD Respiratory: Present: clear Cardiology: Present: no murmurs, no rub, no gallops, regular rate, regular rhythm, normal S1, normal S2 Dialysis Vascular Access: Arteriovenous Graft (L arm) Gastrointestinal: Present: normoactive bowel sounds, no tenderness, no guarding, no masses Integumentary: Present: warm and dry Neurologic: Present: no focal deficit, alert and oriented x3 Musculoskeletal: Present: no deformities, no erythema, no cyanosis, no clubbing Psychiatric: Present: mood/affect appropriate, cooperative - Lab 02/02/19 07:24 02/02/19 07:24 Consult Discharge Plan - Plan Referrals: Mohit Cullen MD [Primary Care Provider] -
[2019-02-03 09:39] LABS: Hematocrit 31.2 % (35.3-44.9); Hemoglobin 10.3 g/dL (11.5-15.4); Mean Corpuscular Hemoglobin 31.5 pg (28.0-33.3); Mean Corpuscular Volume 95.4 fL (83.0-100.0); Mean Platelet Volume 10.9 fL (9.4-12.4); Platelet Count 182 K/mcL (140-400); Red Blood Count 3.27 M/mcL (3.82-4.97); Red Cell Distribution Width 15.7 % (11.5-14.5)
[2019-02-03] MEDS ORDERED: levoFLOXacin 500 MG TABLET PO SCH (10:00)
[2019-02-03 10:02] LABS: Calcium 9.1 mg/dL (8.6-10.3); Potassium 3.6 mEq/L (3.5-5.1)
[2019-02-03] MEDS: hydrALAZINE 25 MG TABLET PO SCH (11:14)
[2019-02-03] MEDS: Isosorbide MONOnitrate (24 HR) 30 MG TAB.ER.24H PO SCH (14:43)
[2019-02-03] MEDS: NIFEdipine XL (24 HR) 60 MG TAB.ER.24 PO SCH (14:43)
[2019-02-03] MEDS: Pregabalin 50 MG CAPSULE PO SCH (14:48)
--- NOTE | 2019-02-03 14:48 | Physician Discharge Referral ---
<Claire Rae - Last Filed: 02/03/19 15:23> [facility] Referral Info Transfer To: [facility] Provider in Charge after Transfer: PCP Institutional Level of Care: Skilled - Diagnosis (1) Acute exacerbation of CHF (congestive heart failure) Priority: Secondary Status: Resolved (2) Acute respiratory failure with hypoxia and hypercapnia Priority: Primary Status: Resolved (3) NSTEMI (non-ST elevated myocardial infarction) Priority: Secondary Status: Resolved (4) ESRD (end stage renal disease) on dialysis Priority: Secondary Status: Chronic (5) Hypotension Priority: Secondary Status: Resolved - Transfer Medications Prescriptions: Isosorbide MONOnitrate (24 HR) [Imdur] 30 mg PO DAILY #30 tab.er.24h levoFLOXacin [Levaquin] 500 mg PO Q48H #2 tablet Metoprolol [Lopressor] 12.5 mg PO BID #15 tablet Home Medications: Aspirin 81 mg PO DAILY 03/23/16 [History] Clopidogrel [Plavix] 75 mg PO DAILY 03/23/16 [History] Lansoprazole [Prevacid] 30 mg PO DAILY 03/23/16 [History] Simvastatin [Zocor] 10 mg PO DAILY 03/23/16 [History] Tizanidine HCl [Zanaflex] 2 mg PO HS 03/23/16 [History] Allopurinol [Zyloprim 100 MG] 100 mg PO DAILY 01/27/19 [History] B Complex W-C No.20/Folic Acid [Virt-Caps Softgel] 1 mg PO DAILY 01/27/19 [History] Cholecalciferol (D-3) [Vitamin D] 1,000 unit PO DAILY 01/27/19 [History] NIFEdipine XL (24 HR) [Procardia XL] 60 mg PO DAILY 01/27/19 [History] Pregabalin [Lyrica] 50 mg PO DAILY 01/27/19 [History] Sertraline [Zoloft] 50 mg PO DAILY 01/27/19 [History] hydrALAZINE [HydrALAZINE] 25 mg PO DAILY 01/27/19 [History] Isosorbide MONOnitrate (24 HR) [Imdur] 30 mg PO DAILY #30 tab.er.24h 02/03/19 [Rx] Metoprolol [Lopressor] 12.5 mg PO BID #15 tablet 02/03/19 [Rx] levoFLOXacin [Levaquin] 500 mg PO Q48H #2 tablet 02/03/19 [Rx] Allergies/Adverse Reactions: Allergy/AdvReac Type Severity Reaction Status Date / Time No Known Allergies Allergy Verified 01/27/19 15:29 - Respiratory Orders Smoking Cessation: Smoking cessation has been advised. For more information, call the [employer] Q[employer] Line at 4-178-HEWB-NOW. - Ancillary Orders May use pressure relief devices daily prn - Mobility Orders Ambulate - Treatments Skin tear care topically daily PRN per policy CERTIFICATION: I certify that the transfer of the above named patient to an Extended Care Facility is necessary for the continuing treatment of the diagnosis listed. The above information is true and accurate reflection of patient's current condition. Confidential - Redisclosure prohibited without a patient's written consent. <Johnnie White - Last Filed: 02/03/19 15:53> - Diagnosis (1) Acute respiratory failure with hypoxia and hypercapnia Status: Resolved (2) Acute exacerbation of CHF (congestive heart failure) Status: Resolved (3) NSTEMI (non-ST elevated myocardial infarction) Status: Resolved (4) ESRD (end stage renal disease) on dialysis Status: Chronic (5) Hypertension Priority: Secondary Status: Chronic (6) Anemia Priority: Secondary Status: Chronic (7) Pneumonia Priority: Secondary Status: Suspected - Respiratory Orders Oxygen / L per min (maintain saturation greater than 90%) Smoking Cessation: Smoking cessation has been advised. For more information, call the [employer] Line at 2-181-KFDW-NOW. - Advance Directives Code Status: Full Code - Rehabiliation Orders Rehab Orders: Evaluation for Physical Therapy, Evaluation for Occupational Therapy - Diet Orders Renal CERTIFICATION: I certify that the transfer of the above named patient to an Extended Care Facility is necessary for the continuing treatment of the diagnosis listed. The above information is true and accurate reflection of patient's current condition. Confidential - Redisclosure prohibited without a patient's written consent.
--- NOTE | 2019-02-03 15:23 | Discharge Summary ---
<Johnnie White - Last Filed: 02/03/19 15:48> Orders not resulted at time of discharge: Pending orders 01/27/19 05:23 Culture,Sputum with Gram Stain [RM] Stat 02/04/19 04:00 Basic Metabolic Panel AM 0400 CBC no Diff [Complete Blood Count w/o Diff] [HEME] AM 04002/05/19 04:00 Basic Metabolic Panel AM 0400 CBC no Diff [Complete Blood Count w/o Diff] [HEME] AM 04002/06/19 04:00 Basic Metabolic Panel AM 0400 CBC no Diff [Complete Blood Count w/o Diff] [HEME] AM 040 Date of Encounter: 02/03/19 - Discharge Diagnosis (1) Acute respiratory failure with hypoxia and hypercapnia Priority: Primary Status: Resolved (2) Acute exacerbation of CHF (congestive heart failure) Priority: Secondary Status: Resolved Qualifiers: Heart failure type: diastolic Qualified Code(s): I50.33 - Acute on chronic diastolic (congestive) heart failure (3) NSTEMI (non-ST elevated myocardial infarction) Priority: Secondary Status: Resolved (4) ESRD (end stage renal disease) on dialysis Priority: Secondary Status: Chronic (5) Hypertension Priority: Secondary Status: Chronic Qualifiers: Hypertension type: essential hypertension Qualified Code(s): I10 - Essential (primary) hypertension (6) Anemia Priority: Secondary Status: Chronic Qualifiers: Anemia type: due to chronic kidney disease Chronic kidney disease stage: on chronic dialysis Qualified Code(s): N18.6 - End stage renal disease; D63.1 - Anemia in chronic kidney disease; Z99.2 - Dependence on renal dialysis (7) Pneumonia Priority: Secondary Status: Suspected Qualifiers: Pneumonia type: due to unspecified organism Laterality: bilateral Lung location: unspecified part of lung Qualified Code(s): J18.9 - Pneumonia, unspecified organism Hospital course: Ms. Waggoner is a 83 year old female - Time Spent with Patient Total time spent providing and/or coordinating discharge services: 38min - Discharge Medications Prescriptions: New Isosorbide MONOnitrate (24 HR) [Imdur] 30 mg PO DAILY #30 tab.er.24h levoFLOXacin [Levaquin] 500 mg PO Q48H #2 tablet Metoprolol [Lopressor] 12.5 mg PO BID #15 tablet Continued Lansoprazole [Prevacid] 30 mg PO DAILY Clopidogrel [Plavix] 75 mg PO DAILY Tizanidine HCl [Zanaflex] 2 mg PO HS Aspirin 81 mg PO DAILY Simvastatin [Zocor] 10 mg PO DAILY Allopurinol [Zyloprim 100 MG] 100 mg PO DAILY hydrALAZINE [HydrALAZINE] 25 mg PO DAILY NIFEdipine XL (24 HR) [Procardia XL] 60 mg PO DAILY Cholecalciferol (D-3) [Vitamin D] 1,000 unit PO DAILY Sertraline [Zoloft] 50 mg PO DAILY Pregabalin [Lyrica] 50 mg PO DAILY B Complex W-C No.20/Folic Acid [Virt-Caps Softgel] 1 mg PO DAILY Home Medications: Aspirin 81 mg PO DAILY 03/23/16 [History] Clopidogrel [Plavix] 75 mg PO DAILY 03/23/16 [History] Lansoprazole [Prevacid] 30 mg PO DAILY 03/23/16 [History] Simvastatin [Zocor] 10 mg PO DAILY 03/23/16 [History] Tizanidine HCl [Zanaflex] 2 mg PO HS 03/23/16 [History] Allopurinol [Zyloprim 100 MG] 100 mg PO DAILY 01/27/19 [History] B Complex W-C No.20/Folic Acid [Virt-Caps Softgel] 1 mg PO DAILY 01/27/19 [History] Cholecalciferol (D-3) [Vitamin D] 1,000 unit PO DAILY 01/27/19 [History] NIFEdipine XL (24 HR) [Procardia XL] 60 mg PO DAILY 01/27/19 [History] Pregabalin [Lyrica] 50 mg PO DAILY 01/27/19 [History] Sertraline [Zoloft] 50 mg PO DAILY 01/27/19 [History] hydrALAZINE [HydrALAZINE] 25 mg PO DAILY 01/27/19 [History] Isosorbide MONOnitrate (24 HR) [Imdur] 30 mg PO DAILY #30 tab.er.24h 02/03/19 [Rx] Metoprolol [Lopressor] 12.5 mg PO BID #15 tablet 02/03/19 [Rx] levoFLOXacin [Levaquin] 500 mg PO Q48H #2 tablet 02/03/19 [Rx] Allergies/Adverse Reactions: Allergy/AdvReac Type Severity Reaction Status Date / Time No Known Allergies Allergy Verified 01/27/19 15:29 Date of admission: 01/27/19 05:23 Primary care physician: Mohit Cullen MD Consults: 01/27/19 05:23 Consult to Cardiology [CONS] Routine Comment: Consulting Provider: Cardiology [facility] Reason for Consult: NSTEMI Call Completed: No Consult to Nephrology [CONS] Routine Consulting Provider: [facility]/CRISTAL/WILD/[facility]IOMA Reason for Consult: HD needs; ESRD on HD MWF Call Completed: No 01/27/19 07:47 Consult to Invasive Line Access Team [CONS] Stat Reason for Consult: needs second IV access Line Type: EPIV PICC line indications: Limited vascular access 01/27/19 09:03 Consult to Nurse Navigator [CONS] Routine Comment: pn, hd 01/27/19 09:15 Consult to Dialysis [CONS] ONCE 01/28/19 00:41 Consult to Critical Care [CONS] Routine Consulting Provider: Pulm Crit Care & [facility] Reason for Consult: ICU/Vent management Call Completed: No 01/29/19 08:15 Consult to Dialysis [CONS] ONCE 01/30/19 13:27 Consult to Occupational Therapy [CONS] Routine Comment: Evaluate, develop and implement POC Reason for Consult: deconditioning Does patient have active BEDREST order?: No Is patient medically & hemodynamically stable?: Yes Consult to Physical Therapy [CONS] Routine Comment: Evaluate, develop and implement POC Reason for Consult: deconditioning Does patient have active BEDREST order?: No Is patient medically & hemodynamically stable?: Yes 01/31/19 08:15 Consult to Dialysis [CONS] ONCE 02/03/19 08:10 Consult to Dialysis [CONS] Stat - Constitutional Vitals: Temp Pulse Resp BP Pulse Ox 98.4 F 82 18 147/56 98 02/03/19 15:21 02/03/19 15:21 02/03/19 15:21 02/03/19 15:21 02/03/19 15:21 - Patient Status Disposition: Transfer SNF Condition: Fair - Discharge Instructions Follow Up With: Mohit Cullen MD [Primary Care Provider] - - Attending Attestation I examined this patient and my medical decision-making was reviewed with the Resident Physician on 02/03/19. I agree with the documented findings, disposition and treatment plan as described except to the extent set forth below. Ms Waggoner has been admitted for acute resp failure from fluid overload. She was intubated and subsequently extubated without issue. She felt very weak and is to go to SNF for rehab. She had some worsening congestion and CXR suggested bronchitis. Levaquin started. Today she is afebrile and ready for discharge to SNF. Exam alert comfortable Mucus membranes dry Heart not tachy No wheeze abd soft Plan D/C to SNF today. <Claire Rae - Last Filed: 02/04/19 22:09> - NOTES TO OUTPATIENT PROVIDER Notes to Outpatient Provider: Admitted with CHF exacerbation and respiratory failure which is improved with HD. Did require intubation. Troponin peak of 1.8, recommend LHC as outpatient and possible GI bleed workup for anemia of 6.7. Orders not resulted at time of discharge: Pending orders 01/27/19 05:23 Culture,Sputum with Gram Stain [RM] Stat 02/04/19 04:00 Basic Metabolic Panel AM 0400 CBC no Diff [Complete Blood Count w/o Diff] [HEME] AM 0400 02/05/19 04:00 Basic Metabolic Panel AM 0400 CBC no Diff [Complete Blood Count w/o Diff] [HEME] AM 0400 02/06/19 04:00 Basic Metabolic Panel AM 0400 CBC no Diff [Complete Blood Count w/o Diff] [HEME] AM 0400 Date of Encounter: 02/04/19 Time of Encounter: 14:48 - Discharge Diagnosis (1) Acute exacerbation of CHF (congestive heart failure) Priority: Secondary Status: Resolved Qualifiers: Heart failure type: diastolic Qualified Code(s): I50.33 - Acute on chronic diastolic (congestive) heart failure (2) Acute respiratory failure with hypoxia and hypercapnia Priority: Primary Status: Resolved (3) NSTEMI (non-ST elevated myocardial infarction) Priority: Secondary Status: Resolved (4) ESRD (end stage renal disease) on dialysis Priority: Secondary Status: Chronic (5) Hypotension Priority: Secondary Status: Resolved Qualifiers: Hypotension type: unspecified hypotension type Qualified Code(s): I95.9 - Hypotension, unspecified Hospital course: Ms. Waggoner is a 83 year old female with a PMhx of CHF, ESRD, HTN, HLD who presented to ED with SOB, chest heaviness, dry cough and subjective fevers. Workup in ED showed troponin with peak of 1.8, WBC of 20, BNP 1400, and anemia. CXR showed findings suspicious for CHF. She was tolerating 5 L via NC on admission. She was admitted for suspected CHF exacerbation with nephrology consult for HD. Cardiology was consulted for NSTEMI, however while on heparin gtt, patient developed anemia and LHC was contraindicated. Early in admission, patient underwent respiratory failure and was subsequently intubated. She was successfully extabated after improvement of respiratory status. CT scans of head, chest, abd showed bilateral pleural effusions, nonspecific pericholecystic findigns, chronic changes. She was initially treated with broad spectrum abx, however these were stopped as etiology was thought to be more likely volume overload. Restarted and will be discharged home on Abx. HD did improve her respiratory status. On day of discharge, patient's symptoms have greatly improved and she was tolerating room air. Labs also improved. She will be discharged home in stable condition and instructed to follow up with PCP. Discharged home in stable medical condition and all questions answered. Labs and vitals improved and currently tolerating room air. Discharge discussed with: patient, social work - Time Spent with Patient Total time spent providing and/or coordinating discharge services: Date of admission: 01/27/19 05:23 Primary care physician: Mohit Cullen MD Consults: 01/27/19 05:23 Consult to Cardiology [CONS] Routine Comment: Consulting Provider: Cardiology [facility] Reason for Consult: NSTEMI Call Completed: No Consult to Nephrology [CONS] Routine Consulting Provider: [facility]/CRISTAL/WILD/[facility]IOMA Reason for Consult: HD needs; ESRD on HD MWF Call Completed: No 01/27/19 07:47 Consult to Invasive Line Access Team [CONS] Stat Reason for Consult: needs second IV access Line Type: EPIV PICC line indications: Limited vascular access 01/27/19 09:03 Consult to Nurse Navigator [CONS] Routine Comment: pn, hd 01/27/19 09:15 Consult to Dialysis [CONS] ONCE 01/28/19 00:41 Consult to Critical Care [CONS] Routine Consulting Provider: Pulm Crit Care & [facility] Reason for Consult: ICU/Vent management Call Completed: No 01/29/19 08:15 Consult to Dialysis [CONS] ONCE 01/30/19 13:27 Consult to Occupational Therapy [CONS] Routine Comment: Evaluate, develop and implement POC Reason for Consult: deconditioning Does patient have active BEDREST order?: No Is patient medically & hemodynamically stable?: Yes Consult to Physical Therapy [CONS] Routine Comment: Evaluate, develop and implement POC Reason for Consult: deconditioning Does patient have active BEDREST order?: No Is patient medically & hemodynamically stable?: Yes 01/31/19 08:15 Consult to Dialysis [CONS] ONCE 02/03/19 08:10 Consult to Dialysis [CONS] Stat Discharging clinician: Claire Rae Anticipated date of discharge: 02/03/19 - Constitutional Vitals: Temp Pulse Resp BP Pulse Ox 99.0 F 69 18 121/57 95 02/03/19 08:55 02/03/19 06:55 02/03/19 08:55 02/03/19 11:40 02/03/19 06:55 General appearance: Present: cooperative, pleasant, no acute distress, answers questions appropriately Exam: General: Alert and oriented. Comfortable at this time. Sitting up in bed. Skin: No rash. No wounds noted. H: Normocephalic. EENT: EOMI, pupils equal. Mucus membranes moist. Cardiovascular: Normal S1 & S2, RRR Lungs: Decreased breath sounds in bases. Diffuse rhonchi present but improved Abdomen: Soft, non-tender, Normal bowel sounds. Extremities: No deformity, no edema or tenderness, Neurological: Normal cognition and motor skills. Pulses: radial pulses normal +2. Rest of the physical exam is non contributory - Patient Status Overall status at discharge: patient is progressing back to baseline - Diet and Activity Activity: increase activity as tolerated, return to work once cleared by your PCP/specialist, resume usual activities as tolerated Diet: diabetic diet, low fat, low cholesterol, low salt diet
[2019-02-03 15:27] VITALS: BP 147/56
[2019-02-03] MEDS ORDERED: Sennosides 8.6 MG TABLET PO PRN (16:09)
== END 2019-02-03 17:15 | DRG 208 ==
LOC: 2ANU 20:48 → EMEROOARM 20:48 → 2ANU 01-27 01:00 → SUATTDRO 01-27 05:23 → ICNU 01-28 00:01 → 2ANU 01-30 16:43
PROVIDERS: ADMIT Family Medicine; ATTEND Internal Medicine

== ENCOUNTER 2019-02-14 05:56 | Inpatient (IN) ==
[2019-02-14 06:19] LABS: ABG Base Excess -2 mEq/L (-2 to 3); ABG HCO3 29 mEq/L (21-27); ABG Oxygen Saturation 75 % (95-98); ABG PCO2 80 mmHg (35-45); ABG PH 7.16 pH Units (7.32-7.45); ABG PO2 53 mmHg (85-104); ABG TCO2 31 mEq/L (20-26); Blood Gas PEEP 10 cm H2O
[2019-02-14] MEDS ORDERED: Ipratropium/Albuterol Neb 3 ML IH ONE (06:21)
[2019-02-14] MEDS ORDERED: methylPREDNISolone 125 MG/2 ML VIAL IVP ONE (06:21)
[2019-02-14] MEDS ORDERED: Nitroglycerin 0.4 MG TAB.SUBL SL ONE (06:23)
[2019-02-14] MEDS ORDERED: Amiodarone Premix 150 MG/100 ML BAG IVPB ONE (06:28)
[2019-02-14] MEDS ORDERED: Amiodarone Premix 360 MG/200 ML BAG IVC ONE (06:28)
[2019-02-14] MEDS ORDERED: Amiodarone Premix 360 MG/200 ML BAG IVC SCH (06:30)
[2019-02-14] MEDS ORDERED: methylPREDNISolone 125 MG/2 ML VIAL ONE (06:33)
--- NOTE | 2019-02-14 06:33 | Emergency Department Note ---
Disposition Clinical Impression: Respiratory distress, ESRD (end stage renal disease) Pneumonia Qualifiers: Pneumonia type: due to unspecified organism Laterality: right Lung location: lower lobe of lung Qualified Code(s): J18.1 - Lobar pneumonia, unspecified organism Congestive heart failure (CHF) Qualifiers: Heart failure type: unspecified Heart failure chronicity: unspecified Qualified Code(s): I50.9 - Heart failure, unspecified Disposition: Admitted As Inpatient Condition: Fair Referrals: NONE,PCP [Primary Care Provider] - Forms: ED Satisfaction Letter Time of Disposition: 07:30 General Adult HPI - General Chief complaint: ED Shortness of Breath/Dyspnea Stated complaint: resp distress Time Seen by Provider: 02/14/19 06:21 Source: EMS, other Mode of arrival: EMS Limitations: physical limitation, age Nursing Notes Reviewed: Yes Vital Signs Reviewed: Yes - History of Present Illness HPI Narrative: 83-year-old female with history of ESRD on HD Sunday, CHF, COPD this for evaluation of respiratory distress. Patient was had a nursing facility. Much of the history provided via EMS. EMS reported the patient has been getting progressively short of breath over the past couple days. Did go to her scheduled dialysis a couple days ago. States that she does have dialysis scheduled earlier this morning. No notable fevers. No chest pain per EMS. No cough. EMS report that when they arrived the patient was hypoxic requiring supplemental oxygen ultimately leading the BiPAP. Patient's oxygen saturation was in the 70s. Patient does not wear oxygen at home. At time of arrival the patient is in respiratory distress and BiPAP was applied immediately. Patient cannot provide an accurate history to confirm information via EMS. Patient is alert and responsive and is appropriate for BiPAP initially. Patient is a full code. Pain Scale: 0 - Related Data Home Medications Medication Instructions Recorded Confirmed Clopidogrel [Plavix] 75 mg PO DAILY 03/23/16 02/14/19 Lansoprazole [Prevacid] 30 mg PO DAILY 03/23/16 02/14/19 Simvastatin [Zocor] 10 mg PO DAILY 03/23/16 02/14/19 Tizanidine HCl [Zanaflex] 2 mg PO HS 03/23/16 02/14/19 Allopurinol [Zyloprim 100 MG] 100 mg PO DAILY 01/27/19 02/14/19 B Complex W-C No.20/Folic Acid 1 mg PO DAILY 01/27/19 02/14/19 [Virt-Caps Softgel] Cholecalciferol (D-3) [Vitamin D] 1,000 unit PO DAILY 01/27/19 02/14/19 NIFEdipine XL (24 HR) [Procardia 60 mg PO DAILY 01/27/19 02/14/19 XL] Pregabalin [Lyrica] 50 mg PO DAILY 01/27/19 02/14/19 Sertraline [Zoloft] 50 mg PO DAILY 01/27/19 02/14/19 hydrALAZINE [HydrALAZINE] 25 mg PO DAILY 01/27/19 02/14/19 Albuterol Sulfate 2.5 mg IH QID PRN 02/14/19 02/14/19 Aspirin Enteric Coated [Aspirin EC] 81 mg PO DAILY 02/14/19 02/14/19 Sevelamer [Renvela] 800 mg PO TID 02/14/19 02/14/19 Previous Rx's Medication Instructions Recorded Isosorbide MONOnitrate (24 HR) 30 mg PO DAILY #30 tab.er.24h 02/03/19 [Imdur] Metoprolol [Lopressor] 12.5 mg PO BID #15 tablet 02/03/19 Allergies Allergy/AdvReac Type Severity Reaction Status Date / Time No Known Allergies Allergy Verified 02/14/19 06:13 Limitations: ROS unobtainable due to patients medical condition Past Medical History - Past Medical History Source: old records reviewed, other Medical history: Reports: arthritis, CHF, COPD, CVA, diabetes, dialysis, GERD, hyperlipidemia, hypertension, myocardial infarction, renal disease, TIA, other Surgical history: Reports: hysterectomy Psychiatric history: Reports: anxiety, depression - Social History Smoking Status: Never smoker Smokeless Tobacco Status: No Alcohol use: Reports: none Drug use: Reports: none Physical Exam - General Limitations: physical limitation, age General appearance: alert, in distress - Head Head exam: atraumatic, normocephalic, normal inspection - Eye Eye exam: Present: normal appearance, PERRL, EOMI - ENT ENT exam: normal exam - Neck Neck exam: Present: normal inspection, other (JVD) - Chest Chest inspection: Present: normal inspection, symmetric chest wall rise - Respiratory Respiratory exam: Present: respiratory distress, accessory muscle use, other (Course in rocker stock sounds throughout faint wheeze) - Cardiovascular Cardiovascular exam: Present: tachycardia, irregular rhythm. Absent: normal heart sounds - Abdominal Exam Abdominal exam: Present: soft, Non-Tender - Extremities Exam Extremities exam: Present: other (Fistula in the left upper extremity) - Back Exam Back exam: Present: normal inspection - Neurological Exam Neurological exam: Present: alert, CN II-XII intact - Skin Skin exam: Present: warm, dry, intact, normal color Course Course Narrative: Patient arrives in respiratory distress requiring immediate positive pressure ventilation. Patient's bedside ultrasound does show evidence of heart failure with B lines. Clinically the patient does have JVD and signs of heart failure. Patient initial oxygen saturation was in the 60s in the trauma bay. Patient recovered with the BiPAP and high FiO2 settings. Patient's breathing and respiratory rate improved. Patient was also noted to be an irregular regular rhythm and concerns for A. fib. No documented history of A. fib in the past. Patient was difficult IV access and EEG was placed. Patient did receive one nitroglycerin with aspirin. Patient was started on amiodarone for the A. fib RVR. Patient will get extensive evaluation with lactate blood cultures given the degree of the respiratory distress. Distress looking secondary to fluid overload and CHF. - Reevaluation(s) Reevaluation #1: Patient's heart rate and blood pressure responded after the nitroglycerin. We will hold off on the amiodarone as the patient does not appear to be in RVR. Time: 06:39 Reevaluation #2: Patient's chest x-ray shows findings consistent with fluid overload and possible right lower lobe infiltrate. Given the degree of the patient's respiratory distress patient will be covered for healthcare associated pneumonia. We will also contact nephrology regarding the patient's respiratory distress and likely need for dialysis. Patient's repeat EKG shows sinus rhythm with a rate of 76. Patient converted after the nitroglycerin. Time: 06:45 Reevaluation #3: Patient seen and examined. Patient's resting comfortably sitting up in bed and is responding to questions. States that she started to feel short of breath last night. Denying any chest pain but has been having a cough. Patient did go to her dialysis on Sunday. Patient's blood pressure heart rate improved. Time: 06:52 - Consultations Consultation #1: Did speak with nephrology who is aware of the patient and need for dialysis. Time: 07:04 Vital Signs O2 Sat by Pulse Oximetry 65 02/14/19 06:03 Temperature 98.9 F 02/14/19 06:12 Pulse Rate 71 02/14/19 07:18 Respiratory Rate 20 02/14/19 07:18 Blood Pressure 137/65 02/14/19 07:18 O2 Sat by Pulse Oximetry 100 02/14/19 07:18 Oxygen Delivery Oxygen Delivery Bipap Medical Decision Making - [facility] Narrative Medical decision making narrative: Patient presented respiratory distress. Immediately was placed on BiPAP. Patient's bedside ultrasound revealed evidence of pulmonary edema with diffuse beelines. Patient responded after the nitroglycerin. Patient was noted to be in A. fib RVR which converted after the nitroglycerin. Patient's resting co mfortably. Discussed the case with the projects manager who will evaluate the patient for anticipated dialysis. Patient was also given antibiotics for concerns for secondary pneumonia. Patient does meet sepsis with concerns for pneumonia but the patient was not given a 30 mL/kg fluid bolus given concerns of end-stage renal disease as well as heart failure and pulmonary edema noted on chest x-ray with concerns of respiratory distress. - Medical Records Medical records reviewed: Yes I reviewed the patient's medical records. Patient's records reviewed and show echo earlier this month with EF of 45-50% with a mildly dilated left atrium. - Lab Data Lab results reviewed: Yes I reviewed the patient's lab results. Result diagrams: 02/14/19 06:21 02/14/19 06:21 Lab Results 02/14/19 02/14/19 02/14/19 Range/Units 06:14 06:21 06:21 WBC 15.2 H (4.3-11.1) K/mcL RBC 3.61 L (3.82-4.97) M/mcL Hgb 11.1 L (11.5-15.4) g/dL Hct 36.1 (35.3-44.9) % MCV 100.0 (83.0-100.0) fL MCH 30.7 (28.0-33.3) pg MCHC 30.7 L (31.6-35.5) g/dL RDW 15.1 H (11.5-14.5) % Plt Count 260 (140-400) K/mcL MPV 10.8 (9.4-12.4) fL Immature Gran % 0.5 (0-4) % Seg Neutrophils % 80.7 % Lymphocytes % 12.3 % Monocytes % 4.0 % Eosinophils % 2.2 % Basophils % 0.3 % Neutrophils # 12.3 H (1.6-8.9) K/mcL Lymphocytes # 1.9 (0.6-4.6) K/mcL Monocytes # 0.6 (0.0-1.3) K/mcL Eosinophils # 0.3 (0.0-0.6) K/mcL Basophils # 0.0 (0.0-0.2) K/mcL PT 12.2 H (9.4-12.1) Seconds INR 1.1 Sample Site R Radial ABG pH 7.16 L* (7.32-7.45) pH Units ABG pCO2 80 H* (35-45) mmHg ABG pO2 53 L (85-104) mmHg ABG HCO3 29 H (21-27) mEq/L ABG Total CO2 31 H (20-26) mEq/L ABG O2 Saturation 75 L (95-98) % ABG Base Excess -2 (-2 to 3) mEq/L Francisco Javier Test N/A O2 Delivery Device BiPAP Inspired O2 100.0 (1-15=lpm [id number]=%) PEEP 10 cm H2O Sodium (136-145) mEq/L Potassium (3.5-5.1) mEq/L Chloride (98-107) mEq/L Carbon Dioxide (23-29) mEq/L BUN (8-23) mg/dL Creatinine (0.60-1.20) mg/dL Est GFR ( Amer) (> 60) Est GFR (Non-Af Amer) (> 60) BUN/Creatinine Ratio (6-26) Glucose (70-105) mg/dL Calculated Osmolality (280-300) Lactic Acid (0.5-2.2) mmol/L Calcium (8.6-10.3) mg/dL Magnesium (1.6-2.6) mg/dL Total Bilirubin (0.3-1.0) mg/dL Direct Bilirubin (0.0-0.2) mg/dL Indirect Bilirubin (0.0-1.2) mg/dL AST (13-39) Units/L ALT (7-52) Units/L Alkaline Phosphatase (34-104) Units/L Troponin I (< 0.04) ng/mL B-Natriuretic Peptide (Less than 100) pg/mL Serum Total Protein (6.4-8.9) g/dL Albumin (3.5-5.7) g/dL Globulin (2.4-3.5) g/dL Albumin/Globulin Ratio (1.1-2.2) Person Notif of Geoff Julio Fidel 02/14/19 02/14/19 02/14/19 Range/Units 06:21 06:21 06:21 WBC (4.3-11.1) K/mcL RBC (3.82-4.97) M/mcL Hgb (11.5-15.4) g/dL Hct (35.3-44.9) % MCV (83.0-100.0) fL MCH (28.0-33.3) pg MCHC (31.6-35.5) g/dL RDW (11.5-14.5) % Plt Count (140-400) K/mcL MPV (9.4-12.4) fL Immature Gran % (0-4) % Seg Neutrophils % % Lymphocytes % % Monocytes % % Eosinophils % % Basophils % % Neutrophils # (1.6-8.9) K/mcL Lymphocytes # (0.6-4.6) K/mcL Monocytes # (0.0-1.3) K/mcL Eosinophils # (0.0-0.6) K/mcL Basophils # (0.0-0.2) K/mcL PT (9.4-12.1) Seconds INR Sample Site ABG pH (7.32-7.45) pH Units ABG pCO2 (35-45) mmHg ABG pO2 (85-104) mmHg ABG HCO3 (21-27) mEq/L ABG Total CO2 (20-26) mEq/L ABG O2 Saturation (95-98) % ABG Base Excess (-2 to 3) mEq/L Francisco Javier Test O2 Delivery Device Inspired O2 (1-15=lpm tu53-213=%) PEEP cm H2O Sodium 137 (136-145) mEq/L Potassium 4.4 (3.5-5.1) mEq/L Chloride 96 L (98-107) mEq/L Carbon Dioxide 25 (23-29) mEq/L BUN 48 H (8-23) mg/dL Creatinine 6.10 H (0.60-1.20) mg/dL Est GFR ( Amer) 8 L (> 60) Est GFR (Non-Af Amer) 7 L (> 60) BUN/Creatinine Ratio 8 (6-26) Glucose 250 H (70-105) mg/dL Calculated Osmolality 305 H (280-300) Lactic Acid 2.7 H (0.5-2.2) mmol/L Calcium 9.1 (8.6-10.3) mg/dL Magnesium 2.3 (1.6-2.6) mg/dL Total Bilirubin 0.3 (0.3-1.0) mg/dL Direct Bilirubin 0.1 (0.0-0.2) mg/dL Indirect Bilirubin 0.2 (0.0-1.2) mg/dL AST 17 (13-39) Units/L ALT 11 (7-52) Units/L Alkaline Phosphatase 119 H (34-104) Units/L Troponin I 0.06 H* (< 0.04) ng/mL B-Natriuretic Peptide 2729 H (Less than 100) pg/mL Serum Total Protein 7.6 (6.4-8.9) g/dL Albumin 4.0 (3.5-5.7) g/dL Globulin 3.6 H (2.4-3.5) g/dL Albumin/Globulin Ratio 1.1 (1.1-2.2) Person Notif of Crit - Radiology Data Radiology results reviewed: Yes I reviewed the patient's radiology results. Chest X-Ray 02/14/19 06:22 IMPRESSION: Pulmonary edema with possible superimposed atelectasis or pneumonia in the right base. D/ / Jay Osorio MD / Jay Osorio MD Interpreting Provider: Jay Osorio MD - EKG Data EKG #1 EKG attestation: Yes I reviewed and interpreted this EKG. Rate: tachycardia Rhythm: A.Fib [place]/QRS: normal T wave inversions noted in: I, aVL When compared to previous EKG there are: changes noted Interpretation: nonspecific ST-T wave changes EKG #2 EKG attestation: Yes I reviewed and interpreted this EKG. EKG shows normal: sinus rhythm Rate: normal Rhythm: NSR [place]/QRS: normal When compared to previous EKG there are: changes noted Interpretation: nonspecific ST-T wave changes S.B.A.R. - S.B.A.RStacie Situation: Demographics Background: Presenting Complaint Assessment: Vital Signs, Course and respsone to treatment, Patient/Family Expectation Recommendation: Barrier(s) to disposition, Recommendation based on pending studies, treatments, or consults S.B.A.RStacie Report Given to: Dr. Khalil [email or web address] Repor Time: 07:00
[2019-02-14 06:34] LABS: Basophils % 0.3 %; Eosinophils # 0.3 K/mcL (0.0-0.6); Eosinophils % 2.2 %; Hematocrit 36.1 % (35.3-44.9); Hemoglobin 11.1 g/dL (11.5-15.4); Immature Granulocytes % 0.5 % (0-4); Lymphocytes # 1.9 K/mcL (0.6-4.6); Lymphocytes % 12.3 %; Mean Corpuscular HGB Conc 30.7 g/dL (31.6-35.5); Mean Corpuscular Hemoglobin 30.7 pg (28.0-33.3); Mean Platelet Volume 10.8 fL (9.4-12.4); Monocytes # 0.6 K/mcL (0.0-1.3); Neutrophils # 12.3 K/mcL (1.6-8.9); Platelet Count 260 K/mcL (140-400); Red Blood Count 3.61 M/mcL (3.82-4.97); Red Cell Distribution Width 15.1 % (11.5-14.5); Segmented Neutrophils % 80.7 %
[2019-02-14 06:41] LABS: INR 1.1; Prothrombin Time 12.2 Seconds (9.4-12.1)
[2019-02-14] MEDS ORDERED: Piperacillin/Tazobactam 3.375 GM in 0.9 % Sodium Chloride Mini Bag 100 ML IVPB ONE (06:43)
[2019-02-14 06:57] LABS: Albumin/Globulin Ratio 1.1 (1.1-2.2); Bilirubin,Direct 0.1 mg/dL (0.0-0.2); Bilirubin,Indirect 0.2 mg/dL (0.0-1.2); Bilirubin,Total 0.3 mg/dL (0.3-1.0); Calcium 9.1 mg/dL (8.6-10.3); Globulin 3.6 g/dL (2.4-3.5); Magnesium 2.3 mg/dL (1.6-2.6); Potassium 4.4 mEq/L (3.5-5.1); Total Protein 7.6 g/dL (6.4-8.9)
[2019-02-14 07:02] LABS: Troponin I 0.06 ng/mL (< 0.04)
--- NOTE | 2019-02-14 07:20 | Emergency Department Note ---
Disposition Clinical Impression: Respiratory distress, ESRD (end stage renal disease) Pneumonia Qualifiers: Pneumonia type: due to unspecified organism Laterality: right Lung location: lower lobe of lung Qualified Code(s): J18.1 - Lobar pneumonia, unspecified organism Congestive heart failure (CHF) Qualifiers: Heart failure type: unspecified Heart failure chronicity: unspecified Qualified Code(s): I50.9 - Heart failure, unspecified Disposition: Admitted As Inpatient Condition: Fair Time of Disposition: 07:30 General Adult HPI - General Chief complaint: ED Shortness of Breath/Dyspnea Stated complaint: resp distress Time Seen by Provider: 02/14/19 06:21 Source: EMS, other Mode of arrival: EMS Limitations: physical limitation, age Nursing Notes Reviewed: Yes Vital Signs Reviewed: Yes - History of Present Illness Pain Scale: 0 - Related Data Home Medications Medication Instructions Recorded Confirmed Clopidogrel [Plavix] 75 mg PO DAILY 03/23/16 02/14/19 Lansoprazole [Prevacid] 30 mg PO DAILY 03/23/16 02/14/19 Simvastatin [Zocor] 10 mg PO DAILY 03/23/16 02/14/19 Tizanidine HCl [Zanaflex] 2 mg PO HS 03/23/16 02/14/19 Allopurinol [Zyloprim 100 MG] 100 mg PO DAILY 01/27/19 02/14/19 B Complex W-C No.20/Folic Acid 1 mg PO DAILY 01/27/19 02/14/19 [Virt-Caps Softgel] Cholecalciferol (D-3) [Vitamin D] 1,000 unit PO DAILY 01/27/19 02/14/19 NIFEdipine XL (24 HR) [Procardia 60 mg PO DAILY 01/27/19 02/14/19 XL] Pregabalin [Lyrica] 50 mg PO DAILY 01/27/19 02/14/19 Sertraline [Zoloft] 50 mg PO DAILY 01/27/19 02/14/19 hydrALAZINE [HydrALAZINE] 25 mg PO DAILY 01/27/19 02/14/19 Albuterol Sulfate 2.5 mg IH QID PRN 02/14/19 02/14/19 Aspirin Enteric Coated [Aspirin EC] 81 mg PO DAILY 02/14/19 02/14/19 Sevelamer [Renvela] 800 mg PO TID 02/14/19 02/14/19 Previous Rx's Medication Instructions Recorded Isosorbide MONOnitrate (24 HR) 30 mg PO DAILY #30 tab.er.24h 02/03/19 [Imdur] Metoprolol [Lopressor] 12.5 mg PO BID #15 tablet 02/03/19 Allergies Allergy/AdvReac Type Severity Reaction Status Date / Time No Known Allergies Allergy Verified 02/14/19 06:13 Past Medical History - Past Medical History Medical history: Reports: arthritis, CHF, COPD, CVA, diabetes, dialysis, GERD, hyperlipidemia, hypertension, myocardial infarction, renal disease, TIA, other Surgical history: Reports: hysterectomy Psychiatric history: Reports: anxiety, depression - Social History Smoking Status: Never smoker Smokeless Tobacco Status: No Alcohol use: Reports: none Drug use: Reports: none Physical Exam - General Limitations: physical limitation, age General appearance: alert, in distress Course Vital Signs O2 Sat by Pulse Oximetry 65 02/14/19 06:03 Temperature 98.9 F 02/14/19 20:10 Pulse Rate 89 02/14/19 20:10 Respiratory Rate 18 02/14/19 20:10 Blood Pressure 112/71 02/14/19 20:10 O2 Sat by Pulse Oximetry 93 02/14/19 20:10 Oxygen Delivery Oxygen Delivery Nasal Cannula Medical Decision Making - Medical Records Medical records reviewed: Yes I reviewed the patient's medical records. - Lab Data Lab results reviewed: Yes I reviewed the patient's lab results. Result diagrams: 02/14/19 06:21 02/14/19 06:21 Lab Results 02/14/19 02/14/19 02/14/19 Range/Units 06:14 06:21 06:21 WBC 15.2 H (4.3-11.1) K/mcL RBC 3.61 L (3.82-4.97) M/mcL Hgb 11.1 L (11.5-15.4) g/dL Hct 36.1 (35.3-44.9) % MCV 100.0 (83.0-100.0) fL MCH 30.7 (28.0-33.3) pg MCHC 30.7 L (31.6-35.5) g/dL RDW 15.1 H (11.5-14.5) % Plt Count 260 (140-400) K/mcL MPV 10.8 (9.4-12.4) fL Immature Gran % 0.5 (0-4) % Seg Neutrophils % 80.7 % Lymphocytes % 12.3 % Monocytes % 4.0 % Eosinophils % 2.2 % Basophils % 0.3 % Neutrophils # 12.3 H (1.6-8.9) K/mcL Lymphocytes # 1.9 (0.6-4.6) K/mcL Monocytes # 0.6 (0.0-1.3) K/mcL Eosinophils # 0.3 (0.0-0.6) K/mcL Basophils # 0.0 (0.0-0.2) K/mcL PT 12.2 H (9.4-12.1) Seconds INR 1.1 Sample Site R Radial ABG pH 7.16 L* (7.32-7.45) pH Units ABG pCO2 80 H* (35-45) mmHg ABG pO2 53 L (85-104) mmHg ABG HCO3 29 H (21-27) mEq/L ABG Total CO2 31 H (20-26) mEq/L ABG O2 Saturation 75 L (95-98) % ABG Base Excess -2 (-2 to 3) mEq/L Francisco Javier Test N/A O2 Delivery Device BiPAP Inspired O2 100.0 (1-15=lpm [id number]=%) PEEP 10 cm H2O Sodium (136-145) mEq/L Potassium (3.5-5.1) mEq/L Chloride (98-107) mEq/L Carbon Dioxide (23-29) mEq/L BUN (8-23) mg/dL Creatinine (0.60-1.20) mg/dL Est GFR ( Amer) (> 60) Est GFR (Non-Af Amer) (> 60) BUN/Creatinine Ratio (6-26) Glucose (70-105) mg/dL Calculated Osmolality (280-300) Lactic Acid (0.5-2.2) mmol/L Calcium (8.6-10.3) mg/dL Magnesium (1.6-2.6) mg/dL Total Bilirubin (0.3-1.0) mg/dL Direct Bilirubin (0.0-0.2) mg/dL Indirect Bilirubin (0.0-1.2) mg/dL AST (13-39) Units/L ALT (7-52) Units/L Alkaline Phosphatase (34-104) Units/L Troponin I (< 0.04) ng/mL B-Natriuretic Peptide (Less than 100) pg/mL Serum Total Protein (6.4-8.9) g/dL Albumin (3.5-5.7) g/dL Globulin (2.4-3.5) g/dL Albumin/Globulin Ratio (1.1-2.2) TSH (0.340-5.600) mcIU/mL Specimen Rejected Person Notif of Geoff Parra 02/14/19 02/14/19 02/14/19 Range/Units 06:21 06:21 06:21 WBC (4.3-11.1) K/mcL RBC (3.82-4.97) M/mcL Hgb (11.5-15.4) g/dL Hct (35.3-44.9) % MCV (83.0-100.0) fL MCH (28.0-33.3) pg MCHC (31.6-35.5) g/dL RDW (11.5-14.5) % Plt Count (140-400) K/mcL MPV (9.4-12.4) fL Immature Gran % (0-4) % Seg Neutrophils % % Lymphocytes % % Monocytes % % Eosinophils % % Basophils % % Neutrophils # (1.6-8.9) K/mcL Lymphocytes # (0.6-4.6) K/mcL Monocytes # (0.0-1.3) K/mcL Eosinophils # (0.0-0.6) K/mcL Basophils # (0.0-0.2) K/mcL PT (9.4-12.1) Seconds INR Sample Site ABG pH (7.32-7.45) pH Units ABG pCO2 (35-45) mmHg ABG pO2 (85-104) mmHg ABG HCO3 (21-27) mEq/L ABG Total CO2 (20-26) mEq/L ABG O2 Saturation (95-98) % ABG Base Excess (-2 to 3) mEq/L Francisco Javier Test O2 Delivery Device Inspired O2 (1-15=lpm [id number]=%) PEEP cm H2O Sodium 137 (136-145) mEq/L Potassium 4.4 (3.5-5.1) mEq/L Chloride 96 L (98-107) mEq/L Carbon Dioxide 25 (23-29) mEq/L BUN 48 H (8-23) mg/dL Creatinine 6.10 H (0.60-1.20) mg/dL Est GFR ( Amer) 8 L (> 60) Est GFR (Non-Af Amer) 7 L (> 60) BUN/Creatinine Ratio 8 (6-26) Glucose 250 H (70-105) mg/dL Calculated Osmolality 305 H (280-300) Lactic Acid 2.7 H (0.5-2.2) mmol/L Calcium 9.1 (8.6-10.3) mg/dL Magnesium 2.3 (1.6-2.6) mg/dL Total Bilirubin 0.3 (0.3-1.0) mg/dL Direct Bilirubin 0.1 (0.0-0.2) mg/dL Indirect Bilirubin 0.2 (0.0-1.2) mg/dL AST 17 (13-39) Units/L ALT 11 (7-52) Units/L Alkaline Phosphatase 119 H (34-104) Units/L Troponin I 0.06 H* (< 0.04) ng/mL B-Natriuretic Peptide 2729 H (Less than 100) pg/mL Serum Total Protein 7.6 (6.4-8.9) g/dL Albumin 4.0 (3.5-5.7) g/dL Globulin 3.6 H (2.4-3.5) g/dL Albumin/Globulin Ratio 1.1 (1.1-2.2) TSH (0.340-5.600) mcIU/mL Specimen Rejected Person Notif of Crit 02/14/19 02/14/19 02/14/19 Range/Units 08:41 10:09 10:22 WBC (4.3-11.1) K/mcL RBC (3.82-4.97) M/mcL Hgb (11.5-15.4) g/dL Hct (35.3-44.9) % MCV (83.0-100.0) fL MCH (28.0-33.3) pg MCHC (31.6-35.5) g/dL RDW (11.5-14.5) % Plt Count (140-400) K/mcL MPV (9.4-12.4) fL Immature Gran % (0-4) % Seg Neutrophils % % Lymphocytes % % Monocytes % % Eosinophils % % Basophils % % Neutrophils # (1.6-8.9) K/mcL Lymphocytes # (0.6-4.6) K/mcL Monocytes # (0.0-1.3) K/mcL Eosinophils # (0.0-0.6) K/mcL Basophils # (0.0-0.2) K/mcL PT (9.4-12.1) Seconds INR Sample Site R Radial ABG pH 7.35 D (7.32-7.45) pH Units ABG pCO2 48 H D (35-45) mmHg ABG pO2 84 L (85-104) mmHg ABG HCO3 26 (21-27) mEq/L ABG Total CO2 28 H (20-26) mEq/L ABG O2 Saturation 96 (95-98) % ABG Base Excess 0 (-2 to 3) mEq/L Francisco Javier Test N/A O2 Delivery Device BiPAP Inspired O2 60.0 (1-15=lpm [id number]=%) PEEP cm H2O Sodium (136-145) mEq/L Potassium (3.5-5.1) mEq/L Chloride (98-107) mEq/L Carbon Dioxide (23-29) mEq/L BUN (8-23) mg/dL Creatinine (0.60-1.20) mg/dL Est GFR ( Amer) (> 60) Est GFR (Non-Af Amer) (> 60) BUN/Creatinine Ratio (6-26) Glucose (70-105) mg/dL Calculated Osmolality (280-300) Lactic Acid 3.1 H (0.5-2.2) mmol/L Calcium (8.6-10.3) mg/dL Magnesium (1.6-2.6) mg/dL Total Bilirubin (0.3-1.0) mg/dL Direct Bilirubin (0.0-0.2) mg/dL Indirect Bilirubin (0.0-1.2) mg/dL AST (13-39) Units/L ALT (7-52) Units/L Alkaline Phosphatase (34-104) Units/L Troponin I (< 0.04) ng/mL B-Natriuretic Peptide (Less than 100) pg/mL Serum Total Protein (6.4-8.9) g/dL Albumin (3.5-5.7) g/dL Globulin (2.4-3.5) g/dL Albumin/Globulin Ratio (1.1-2.2) TSH 2.369 (0.340-5.600) mcIU/mL Specimen Rejected Person Notif of Crit 02/14/19 Range/Units 10:50 WBC (4.3-11.1) K/mcL RBC (3.82-4.97) M/mcL Hgb (11.5-15.4) g/dL Hct (35.3-44.9) % MCV (83.0-100.0) fL MCH (28.0-33.3) pg MCHC (31.6-35.5) g/dL RDW (11.5-14.5) % Plt Count (140-400) K/mcL MPV (9.4-12.4) fL Immature Gran % (0-4) % Seg Neutrophils % % Lymphocytes % % Monocytes % % Eosinophils % % Basophils % % Neutrophils # (1.6-8.9) K/mcL Lymphocytes # (0.6-4.6) K/mcL Monocytes # (0.0-1.3) K/mcL Eosinophils # (0.0-0.6) K/mcL Basophils # (0.0-0.2) K/mcL PT (9.4-12.1) Seconds INR Sample Site ABG pH (7.32-7.45) pH Units ABG pCO2 (35-45) mmHg ABG pO2 (85-104) mmHg ABG HCO3 (21-27) mEq/L ABG Total CO2 (20-26) mEq/L ABG O2 Saturation (95-98) % ABG Base Excess (-2 to 3) mEq/L Francisco Javier Test O2 Delivery Device Inspired O2 (1-15=lpm dl37-690=%) PEEP cm H2O Sodium (136-145) mEq/L Potassium (3.5-5.1) mEq/L Chloride (98-107) mEq/L Carbon Dioxide (23-29) mEq/L BUN (8-23) mg/dL Creatinine (0.60-1.20) mg/dL Est GFR ( Amer) (> 60) Est GFR (Non-Af Amer) (> 60) BUN/Creatinine Ratio (6-26) Glucose (70-105) mg/dL Calculated Osmolality (280-300) Lactic Acid (0.5-2.2) mmol/L Calcium (8.6-10.3) mg/dL Magnesium (1.6-2.6) mg/dL Total Bilirubin (0.3-1.0) mg/dL Direct Bilirubin (0.0-0.2) mg/dL Indirect Bilirubin (0.0-1.2) mg/dL AST (13-39) Units/L ALT (7-52) Units/L Alkaline Phosphatase (34-104) Units/L Troponin I (< 0.04) ng/mL B-Natriuretic Peptide (Less than 100) pg/mL Serum Total Protein (6.4-8.9) g/dL Albumin (3.5-5.7) g/dL Globulin (2.4-3.5) g/dL Albumin/Globulin Ratio (1.1-2.2) TSH (0.340-5.600) mcIU/mL Specimen Rejected Hemolyzed Person Notif of Crit - Radiology Data Radiology results reviewed: Yes I reviewed the patient's radiology results. Chest X-Ray 02/14/19 06:22 IMPRESSION: Pulmonary edema with possible superimposed atelectasis or pneumonia in the right base. D/ / Jay Osorio MD / Jay Osorio MD Interpreting Provider: Jay Osorio MD - EKG Data EKG #1 EKG attestation: Yes I reviewed and interpreted this EKG. EKG results narrative: 06:41 Repeat EKG after patient converted out of the atrial fibrillation shows a normal sinus rhythm with ventricular rate of 76. Minimal anterolateral ST segment depression. EKG #2 EKG attestation: Yes I reviewed and interpreted this EKG. EKG results narrative: 06:41 Repeat EKG after patient converted out of the atrial fibrillation shows a normal sinus rhythm with ventricular rate of 76. Minimal anterolateral ST segment de pression. Critical Care Time Critical Care Time: Yes Total Critical Care Time: 60 Attestation: Critical care performed: Time is exclusive of separately billable procedures. Time includes: direct patient care, patient reassessment, coordination of patient care, interpretation of data (laboratory data, radiology data, and respiratory data), review of patient's medical records, medical consultation and documentation of patient care. Procedures included in critical care time: Procedures excluded from critical care time: Attestation Statement - Attestation Attestation: IToño MD, personally evaluated this patient and discussed their management with the resident physician. I reviewed the resident's note and agree with the documented findings, medical decision making, and plan of care. I personally supervised and was present for the mathis/critical portions of the following procedures completed by the resident: EKG interpretation. 83-year-old female presents to the emergency department by EMS from a local long-term. Patient has history of end-stage renal disease on hemodialysis Sunday was seen Sunday. EMS reports that she has had increasing shortness of breath over the past few days. She was ordered some nebulizer treatments at the long-term yesterday but the shortness of breath seemed to get worse especially throughout the night tonight. On arrival here patient is in severe respiratory distress. She does respond to verbal stimuli but unable to answer questions. On examination patient is a well-developed well-nourished elderly female in severe respiratory distress. She is diaphoretic. She responds to verbal stimuli. Breath sounds are decreased bilaterally with diffuse tight lateral expiratory wheezes and diffuse bilateral rhonchi. Heart tachycardic and irregularly irregular. Abdomen soft with present bowel sounds. No pedal edema. Initial EKG showed atrial fibrillation with RVR. Chest x-ray showed pulmonary e armin with a possible underlying right lower lobe pneumonia. Labs reviewed. Patient meets severe sepsis criteria. She did not receive fluid bolus because of her pulmonary edema. Blood cultures were obtained. Antibiotics initiated. Dr. Parra discussed the case with the [employer] on-call, Dr. Marion. The hospitalist was consulted for admission.
[2019-02-14] MEDS ORDERED: Ondansetron 4 MG/2 ML VIAL IVP PRN (09:48)
[2019-02-14] MEDS ORDERED: Acetaminophen 325 MG TABLET PO PRN (09:48)
[2019-02-14] MEDS ORDERED: Naloxone 0.4 MG/ML INJ IVP PRN (09:48)
--- NOTE | 2019-02-14 09:59 | Internal Med History&Physical ---
<Tom Kimball - Last Filed: 02/14/19 11:41> Date of Encounter: 02/14/19 Time of Encounter: 09:57 Internal Medicine - H&P: HPI Chief complaint: Shortness of breath Admitted From: Emergency Dept History of present illness: Ms. Waggoner is a 83 year old female with a past medical history of hypertension, CAD, end-stage renal disease on dialysis, and severe pulmonary hypertension who presented to the ED in acute respiratory distress. Patient has difficulty answering questions due to current medical condition and is currently on BiPAP. History of present was was obtained from the medical record. Patient is A&O 3 and requests to remains full code at this time. In the ED, patient's initial vital signs showed pulse ox 65% and tachycardia 142, she was placed on BiPAP. ABG revealed pH 7.16, PCO2 80, PO2 53, SPO2 75%, CXR revealed pulmonary edema with possible superimposed atelectasis or pneumonia in the right base. Patient had leukocytosis 15.2 and was started on empiric antibiotics for hospital acquired for pneumonia. Repeat ABG shows pH 7.35, PCO2 48, PO2 84, and O2 sat 96%. She was given a one time dose of sublingual nitroglycerin in the ED given her history of severe pulmonary hypertension. Pulmonology has been consulted Past Med Surg Social Fam HX - Past Medical History Medical history: arthritis, CHF, COPD, CVA, diabetes, dialysis, GERD, hype rlipidemia, hypertension, myocardial infarction, renal disease, TIA, other Additional medical history: anemia. gout. OA Psychiatric history: anxiety, depression - Past Surgical History Surgical History: hysterectomy Additional surgical history: HD fistula SANTOS - Social History Smoking Status: Never smoker Smokeless Tobacco Status: No Alcohol use: none Drug use: none - Family History Mother Living Status: Hx Family Neurologic Disorders: Yes (Alzheimer's dementia) Father Living Status: Hx Family Neuromuscular Disorders: Yes (Hemorrhagic CVA) Internal Medicine - H&P: Meds Clopidogrel [Plavix] 75 mg PO DAILY 03/23/16 [History] Lansoprazole [Prevacid] 30 mg PO DAILY 03/23/16 [History] Simvastatin [Zocor] 10 mg PO DAILY 03/23/16 [History] Tizanidine HCl [Zanaflex] 2 mg PO HS 06/30/16 [History] Allopurinol [Zyloprim 100 MG] 100 mg PO DAILY 01/27/19 [History] B Complex W-C No.20/Folic Acid [Virt-Caps Softgel] 1 mg PO DAILY 01/27/19 [History] Cholecalciferol (D-3) [Vitamin D] 1,000 unit PO DAILY 01/27/19 [History] NIFEdipine XL (24 HR) [Procardia XL] 60 mg PO DAILY 01/27/19 [History] Pregabalin [Lyrica] 50 mg PO DAILY 01/27/19 [History] Sertraline [Zoloft] 50 mg PO DAILY 01/27/19 [History] hydrALAZINE [HydrALAZINE] 25 mg PO DAILY 01/27/19 [History] Isosorbide MONOnitrate (24 HR) [Imdur] 30 mg PO DAILY #30 tab.er.24h 02/03/19 [Rx] Metoprolol [Lopressor] 12.5 mg PO BID #15 tablet 02/03/19 [Rx] Albuterol Sulfate 2.5 mg IH QID PRN 02/14/19 [History] Aspirin Enteric Coated [Aspirin EC] 81 mg PO DAILY 02/14/19 [History] Sevelamer [Renvela] 800 mg PO TID 02/14/19 [History] Allergy/AdvReac Type Severity Reaction Status Date / Time No Known Allergies Allergy Verified 02/14/19 06:13 ROS unobtainable: other (BIPAP) All Systems PM: A 10-system review of systems was performed and is negative for pertinent findings except as documented above in the HPI. - Constitutional Vitals: Temp Pulse Resp BP Pulse Ox 98.9 F 73 20 150/54 100 02/14/19 06:12 02/14/19 08:50 02/14/19 08:50 02/14/19 08:50 02/14/19 08:50 General appearance: Present: cooperative, answers questions appropriately Exam: Moderate distress - Head Head exam: Present: atraumatic, normocephalic - Eye Eye exam: Present: EOMI, conjuntiva pink, sclera anicteric - ENT ENT exam: Present: mucous membranes dry, normal oropharynx (Wearing BiPAP, poor dentition) - Neck Neck exam general surgery: Present: supple, trachea midline - Respiratory Respiratory exam: Present: decreased breath sounds, respiratory distress (wearing BiPAP). Absent: accessory muscle use, rales, rhonchi, wheezes - Cardiovascular Cardiovascular exam: Present: RRR, +S1, +S2, tachycardia. Absent: diastolic murmur, gallop, rubs, systolic murmur - GI/Abdominal GI/Abdominal exam: Present: normal bowel sounds, soft, no peritoneal signs. Absent: distended, tenderness - Extremities Exam Extremities exam: Present: normal capillary refill, warm, radial pulses palpable and symmetrical. Absent: calf tenderness, cyanotic, pedal edema - Back Exam Back exam: Present: normal inspection. Absent: paraspinal tenderness, tenderness - Neurological Exam Neurological exam: Present: CN II-XII intact, oriented X3, no focal deficits. Absent: facial droop, speech deficit - Psychiatric Psychiatric exam: Present: anxious, normal affect - Skin Skin exam: Present: dry, intact, warm Internal Med - H&P Results - Labs CBC & Chem 7: 02/14/19 06:21 02/14/19 06:21 Labs: Short CBC 02/14/19 Range/Units 06:21 WBC 15.2 H (4.3-11.1) K/mcL Hgb 11.1 L (11.5-15.4) g/dL Hct 36.1 (35.3-44.9) % Plt Count 260 (140-400) K/mcL Neutrophils # 12.3 H (1.6-8.9) K/mcL BMP 02/14/19 06:21 Sodium 137 Potassium 4.4 Chloride 96 L Carbon Dioxide 25 BUN 48 H Creatinine 6.10 H Glucose 250 H Calcium 9.1 Cardiac Enzymes 02/14/19 Range/Units 06:21 Troponin I 0.06 H* (< 0.04) ng/mL Liver Function 02/14/19 Range/Units 06:21 Total Bilirubin 0.3 (0.3-1.0) mg/dL Direct Bilirubin 0.1 (0.0-0.2) mg/dL AST 17 (13-39) Units/L ALT 11 (7-52) Units/L Alkaline Phosphatase 119 H (34-104) Units/L Albumin 4.0 (3.5-5.7) g/dL - ABG Interpretation ABG results: 02/14/19 06:14 ABG pH 7.16 L* ABG pCO2 80 H* ABG pO2 53 L ABG HCO3 29 H ABG Total CO2 31 H ABG O2 Saturation 75 L ABG Base Excess -2 - Pulse Oximetry Interpretation Digit-Finger O2 Sat by Pulse Oximetry: 100 (On BiPAP) - EKG Data -: EKG Interpreted by Myself EKG shows normal: sinus rhythm (Normal sinus rhythm, heart rate 76, normal axis, minimal ST depression in lateral leads, unchanged from previous EKG) - Impressions ITS Impressions Chest X-Ray 02/14/19 06:22 IMPRESSION: Pulmonary edema with possible superimposed atelectasis or pneumonia in the right base. D/ / Jay Osorio MD / Jay Osorio MD Interpreting Provider: Jay Osorio MD - Assessment and Plan (1) Sepsis Current Visit: Yes Status: Acute Assessment and plan: Patient met sepsis criteria with leukocytosis 15.2, tachycardia 142, respiratory rate 28, and hospital acquired pneumonia as likely source of infection. Lactic acid 2.7 --> 3.1, repeat lactic acid level pending She was not given IV sepsis fluid bolus 30mg/kg due to ESRD on hemodialysis, BNP 2729, severe pulmonary hypertension, and pulmonary vascular congestion on CXR. Patient was started on empiric IV antibiotics. Monitor closely in ICU stepdown. Qualifiers: Sepsis type: sepsis due to unspecified organism Qualified Code(s): A41.9 - Sepsis, unspecified organism (2) HCAP (healthcare-associated pneumonia) Current Visit: Yes Status: Acute Assessment and plan: 83-year-old female on hemodialysis presents with acute respiratory distress and CXR findings consistent with right lower lobe pneumonia. Legionella and strep pneumo urine antigens pending, MRSA nasal swab pending, sputum culture pending. Continue empiric antibiotics (Vanc, Zosyn, Levaquin) De-escalate antibiotics based on culture results (3) Acute respiratory failure with hypoxia and hypercapnia Current Visit: Yes Status: Acute Assessment and plan: Continue BiPAP and duo nebs Pulmonology consulted (4) (HFpEF) heart failure with preserved ejection fraction Current Visit: Yes Status: Acute Assessment and plan: Echo 01/27/19 LVEF 45-50%, Moderate left ventricular diastolic dysfunction with tissue evidence of elevated filling pressures Normal right ventricular structure and function. Mild aortic regurgitation.Mild aortic stenosis. Moderate mitral regurgitation. Moderate tricuspid regurgitation. Severe pulmonary hypertension. Estimated RVSP is 70 mmHg. There is a small pericardial effusion without echocardiographic evidence of tamponade, present. CXR revealed pulmonary edema BNP elevated 2729 Resume hemodialysis, nephrology following Qualifiers: Heart failure chronicity: acute on chronic Qualified Code(s): I50.33 - Acute on chronic diastolic (congestive) heart failure (5) Pulmonary hypertension, moderate to severe Current Visit: Yes Status: Acute Assessment and plan: Echo 01/27/19 LVEF 45-50%, Moderate left ventricular diastolic dysfunction with tissue evidence of elevated filling pressures Normal right ventricular structure and function. Mild aortic regurgitation.Mild aortic stenosis. Moderate mitral regurgitation. Moderate tricuspid regurgitation. Severe pulmonary hypertension. Estimated RVSP is 70 mmHg. There is a small pericardial effusion without echocardiographic evidence of tamponade, present. CXR revealed pulmonary edema Resume hemodialysis (6) ESRD (end stage renal disease) on dialysis Current Visit: No Status: Chronic Assessment and plan: Patient on hemodialysis Nephrology following. (7) Elevated troponin Current Visit: Yes Status: Acute Assessment and plan: Patient with ESRD presents with troponin 0.06 EKG reveals no acute signs of ischemia Trend serial troponins (8) CAD (coronary artery disease) Current Visit: Yes Status: Acute Assessment and plan: Continue aspirin and Plavix Qualifiers: Coronary Disease-Associated Artery/Lesion type: [place] artery [place] vs. transplanted heart: [place] heart Associated angina: without angina Qualified Code(s): I25.10 - Atherosclerotic heart disease of [place] coronary artery without angina pectoris (9) Hypertension Current Visit: No Status: Chronic Assessment and plan: Blood pressure stable. Continue close monitoring Qualifiers: Hypertension type: essential hypertension Qualified Code(s): I10 - Essential (primary) hypertension (10) Anemia Current Visit: No Status: Chronic Assessment and plan: Hemoglobin of baseline. No signs of active bleeding Continue monitoring Qualifiers: Anemia type: due to chronic kidney disease Chronic kidney disease stage: on chronic dialysis Qualified Code(s): N18.6 - End stage renal disease; D63.1 - Anemia in chronic kidney disease; Z99.2 - Dependence on renal dialysis (11) DVT prophylaxis Current Visit: No Status: Acute Assessment and plan: Subcutaneous heparin TID - Time Spent With Patient Total time spent is greater than 50% in coordination of care (as documented) at patient's floor/unit and/or counseling patient: Sepsis Reassessment Note - Evaluation Sepsis Screen: Sepsis Risk Current Stage of Sepsis: sepsis Possible Source of Sepsis: pulmonary - Focused Exam Date of Encounter: 02/14/19 Time of Encounter: 11:46 Vital Signs: Vital Signs Temp Pulse Resp BP Pulse Ox 02/14/19 08:50 73 20 150/54 100 02/14/19 07:42 68 24 117/51 100 02/14/19 07:18 71 20 137/65 100 02/14/19 07:00 71 20 119/49 100 02/14/19 06:45 80 22 127/56 100 02/14/19 06:42 78 24 129/68 100 02/14/19 06:35 77 24 129/62 100 02/14/19 06:30 133 24 147/73 100 02/14/19 06:29 23 100 02/14/19 06:27 142 22 162/78 100 02/14/19 06:12 98.9 F 122 28 155/85 96 02/14/19 06:07 22 81 02/14/19 06:05 98.9 F 122 28 155/85 96 02/14/19 06:04 86 02/14/19 06:03 65 Respiratory Exam: Present: respiratory distress (On BiPAP), decreased breath sounds Cardiovascular Exam: Present: RRR Capillary Refill: < 2 seconds Peripheral Pulse Strength: 3+ normal Peripheral Pulse Location: Radial Skin Exam: normal turgor <Kimmy Wong Z - Last Filed: 02/16/19 10:52> Date of Encounter: 02/14/19 Internal Medicine - H&P: HPI History of present illness: Ms. Waggoner is a 83 year old female All Systems PM: A 10-system review of systems was performed and is negative for pertinent findings except as documented above in the HPI. - Constitutional Vitals: Temp Pulse Resp BP Pulse Ox 98.9 F 89 18 112/71 93 02/14/19 20:10 02/14/19 20:10 02/14/19 20:10 02/14/19 20:10 02/14/19 20:10 Internal Med - H&P Results - Labs CBC & Chem 7: 02/16/19 03:40 02/16/19 03:40 Labs: Short CBC 02/14/19 Range/Units 06:21 WBC 15.2 H (4.3-11.1) K/mcL Hgb 11.1 L (11.5-15.4) g/dL Hct 36.1 (35.3-44.9) % Plt Count 260 (140-400) K/mcL Neutrophils # 12.3 H (1.6-8.9) K/mcL BMP 02/14/19 06:21 Sodium 137 Potassium 4.4 Chloride 96 L Carbon Dioxide 25 BUN 48 H Creatinine 6.10 H Glucose 250 H Calcium 9.1 Cardiac Enzymes 02/14/19 02/14/19 02/14/19 Range/Units 06:21 13:30 22:09 Troponin I 0.06 H* 0.07 H* 0.07 H* (< 0.04) ng/mL Liver Function 02/14/19 Range/Units 06:21 Total Bilirubin 0.3 (0.3-1.0) mg/dL Direct Bilirubin 0.1 (0.0-0.2) mg/dL AST 17 (13-39) Units/L ALT 11 (7-52) Units/L Alkaline Phosphatase 119 H (34-104) Units/L Albumin 4.0 (3.5-5.7) g/dL - ABG Interpretation ABG results: 02/14/19 02/14/19 06:14 10:09 ABG pH 7.16 L* 7.35 D ABG pCO2 80 H* 48 H D ABG pO2 53 L 84 L ABG HCO3 29 H 26 ABG Total CO2 31 H 28 H ABG O2 Saturation 75 L 96 ABG Base Excess -2 0 - Impressions ITS Impressions Chest X-Ray 02/14/19 06:22 IMPRESSION: Pulmonary edema with possible superimposed atelectasis or pneumonia in the right base. D/ / Jay Osorio MD / Jay Osorio MD Interpreting Provider: Jay Osorio MD - Assessment and Plan (1) ESRD (end stage renal disease) on dialysis Current Visit: Yes Status: Acute (2) Hypertension Current Visit: Yes Status: Chronic Qualifiers: Hypertension type: essential hypertension Qualified Code(s): I10 - Essential (primary) hypertension (3) DVT prophylaxis Current Visit: Yes Status: Acute (4) Acute respiratory failure with hypoxia and hypercapnia Current Visit: Yes Status: Acute (5) Anemia Current Visit: Yes Status: Chronic Qualifiers: Anemia type: due to chronic kidney disease Chronic kidney disease stage: on chronic dialysis Qualified Code(s): N18.6 - End stage renal disease; D63.1 - Anemia in chronic kidney disease; Z99.2 - Dependence on renal dialysis (6) HCAP (healthcare-associated pneumonia) Current Visit: Yes Status: Acute (7) Elevated troponin Current Visit: Yes Status: Acute (8) Sepsis Current Visit: Yes Status: Acute Qualifiers: Sepsis type: sepsis due to unspecified organism Qualified Code(s): A41.9 - Sepsis, unspecified organism (9) CAD (coronary artery disease) Current Visit: Yes Status: Acute Qualifiers: Coronary Disease-Associated Artery/Lesion type: [place] artery [place] vs. transplanted heart: [place] heart Associated angina: without angina Qualified Code(s): I25.10 - Atherosclerotic heart disease of [place] coronary artery without angina pectoris (10) Pulmonary hypertension, moderate to severe Current Visit: Yes Status: Acute (11) (HFpEF) heart failure with preserved ejection fraction Current Visit: Yes Status: Acute Qualifiers: Heart failure chronicity: acute on chronic Qualified Code(s): I50.33 - Acute on chronic diastolic (congestive) heart failure - Time Spent With Patient Total time spent is greater than 50% in coordination of care (as documented) at patient's floor/unit and/or counseling patient: - Attending Attestation I personally and independently interviewed and examined the patient, and I reviewed the patient's medical records. I am in agreement with the assessment and proposed treatment plan. I discussed my findings and recommendation with the patient and answer his questions. The patient's medical records were edited to accurately reflect this encounter. Sepsis Reassessment Note - Focused Exam Vital Signs: Vital Signs Temp Pulse Resp BP Pulse Ox 02/14/19 20:10 98.9 F 89 18 112/71 93 02/14/19 19:15 97.9 F 18 124/57 02/14/19 19:00 114/54 02/14/19 18:45 139/65 02/14/19 18:30 143/72 02/14/19 18:15 148/74 02/14/19 18:00 137/71 02/14/19 17:45 129/62 02/14/19 17:30 137/62 02/14/19 17:15 151/67 02/14/19 17:00 144/74 02/14/19 16:45 141/66 02/14/19 16:30 169/77 02/14/19 16:15 166/75 02/14/19 16:00 156/77 02/14/19 15:45 169/52 02/14/19 15:30 21 177/76 02/14/19 12:10 97.6 F 85 19 162/70 94 02/14/19 11:50 15 145/81 02/14/19 11:21 16 130/57 100 02/14/19 11:19 16 100
[2019-02-14 10:12] LABS: ABG Base Excess 0 mEq/L (-2 to 3); ABG HCO3 26 mEq/L (21-27); ABG Oxygen Saturation 96 % (95-98); ABG PCO2 48 mmHg (35-45); ABG PH 7.35 pH Units (7.32-7.45); ABG PO2 84 mmHg (85-104); ABG TCO2 28 mEq/L (20-26)
[2019-02-14] MEDS: Ipratropium/Albuterol Neb 3 ML IH SCH ×4 (11:17→23:33)
[2019-02-14] MEDS: Aspirin Enteric Coated 81 MG Tablet PO SCH (12:33)
[2019-02-14] MEDS: NIFEdipine XL (24 HR) 60 MG TAB.ER.24 PO SCH (12:33)
[2019-02-14] MEDS: Levofloxacin 750 MG/150 ML 750 MG/150 ML BAG IVPB SCH (12:34)
[2019-02-14] MEDS: Isosorbide MONOnitrate (24 HR) 30 MG TAB.ER.24H PO SCH (12:34)
--- NOTE | 2019-02-14 14:38 | Pulmonology Consult Note ---
<Luke Gaviria W - Last Filed: 02/14/19 16:32> Date of Encounter: 02/14/19 Medications and Allergies Clopidogrel [Plavix] 75 mg PO DAILY 03/23/16 [History] Lansoprazole [Prevacid] 30 mg PO DAILY 03/23/16 [History] Simvastatin [Zocor] 10 mg PO DAILY 03/23/16 [History] Tizanidine HCl [Zanaflex] 2 mg PO HS 03/23/16 [History] Allopurinol [Zyloprim 100 MG] 100 mg PO DAILY 01/27/19 [History] B Complex W-C No.20/Folic Acid [Virt-Caps Softgel] 1 mg PO DAILY 01/27/19 [History] Cholecalciferol (D-3) [Vitamin D] 1,000 unit PO DAILY 01/27/19 [History] NIFEdipine XL (24 HR) [Procardia XL] 60 mg PO DAILY 01/27/19 [History] Pregabalin [Lyrica] 50 mg PO DAILY 01/27/19 [History] Sertraline [Zoloft] 50 mg PO DAILY 01/27/19 [History] hydrALAZINE [HydrALAZINE] 25 mg PO DAILY 01/27/19 [History] Isosorbide MONOnitrate (24 HR) [Imdur] 30 mg PO DAILY #30 tab.er.24h 02/03/19 [Rx] Metoprolol [Lopressor] 12.5 mg PO BID #15 tablet 02/03/19 [Rx] Albuterol Sulfate 2.5 mg IH QID PRN 02/14/19 [History] Aspirin Enteric Coated [Aspirin EC] 81 mg PO DAILY 02/14/19 [History] Sevelamer [Renvela] 800 mg PO TID 02/14/19 [History] Allergy/AdvReac Type Severity Reaction Status Date / Time No Known Allergies Allergy Verified 02/14/19 06:13 All Systems: The remainder of the systems were reviewed and are negative Physical Examination Vital Signs: Vital Signs, Last 4 Hours Temp Pulse Resp BP Pulse Ox 02/14/19 12:10 97.6 F 85 19 162/70 94 02/14/19 11:50 15 145/81 02/14/19 11:21 16 130/57 100 02/14/19 11:19 16 100 Results - Laboratory Findings CBC and BMP: 02/14/19 06:21 02/14/19 06:21 ABG ABG pH 7.35 pH Units (7.32-7.45) D 02/14/19 10:09 ABG pCO2 48 mmHg (35-45) H D 02/14/19 10:09 ABG pO2 84 mmHg (85-104) L 02/14/19 10:09 ABG O2 Saturation 96 % (95-98) 02/14/19 10:09 PT/INR, D-dimer PT 12.2 Seconds (9.4-12.1) H 02/14/19 06:21 Abnormal lab findings: Abnormal lab results WBC 15.2 K/mcL (4.3-11.1) H 02/14/19 06:21 RBC 3.61 M/mcL (3.82-4.97) L 02/14/19 06:21 Hgb 11.1 g/dL (11.5-15.4) L 02/14/19 06:21 MCHC 30.7 g/dL (31.6-35.5) L 02/14/19 06:21 RDW 15.1 % (11.5-14.5) H 02/14/19 06:21 12.3 K/mcL (1.6-8.9) H 02/14/19 06:21 PT 12.2 Seconds (9.4-12.1) H 02/14/19 06:21 ABG pH 7.16 pH Units (7.32-7.45) L* 02/14/19 06:14 ABG pCO2 48 mmHg (35-45) H D 02/14/19 10:09 ABG pO2 84 mmHg (85-104) L 02/14/19 10:09 ABG HCO3 29 mEq/L (21-27) H 02/14/19 06:14 ABG Total CO2 28 mEq/L (20-26) H 02/14/19 10:09 ABG O2 Saturation 75 % (95-98) L 02/14/19 06:14 Chloride 96 mEq/L (98-107) L 02/14/19 06:21 BUN 48 mg/dL (8-23) H 02/14/19 06:21 6.10 mg/dL (0.60-1.20) H 02/14/19 06:21 Est GFR ( Amer) 8 (> 60) L 02/14/19 06:21 Est GFR (Non-Af Amer) 7 (> 60) L 02/14/19 06:21 Glucose 250 mg/dL (70-105) H 02/14/19 06:21 305 (280-300) H 02/14/19 06:21 Lactic Acid 2.5 mmol/L (0.5-2.2) H 02/14/19 13:30 119 Units/L (34-104) H 02/14/19 06:21 0.07 ng/mL (< 0.04) H* 02/14/19 13:30 B-Natriuretic Peptide 2729 pg/mL (Less than 100) H 02/14/19 06:21 3.6 g/dL (2.4-3.5) H 02/14/19 06:21 - Microbiology Findings Microbiology Findings: Microbiology, Last 48 Hours 02/14/19 08:41 Blood Culture - Preliminary Peripheral Venipuncture Culture is incubating and being continuously monitored for growth. Final report to follow. 02/14/19 06:21 Blood Culture - Preliminary Peripheral Venipuncture Culture is incubating and being continuously monitored for growth. Final report to follow. - Clinical Findings Intake & Output: Intake & Output 02/13/19 02/14/19 02/14/19 23:59 07:59 15:59 Intake Total 350 / 350 Balance 350 / 350 Weight 63.775 kg Consult Discharge Plan - Plan Referrals: NONE,PCP [Primary Care Provider] - - Attending Attestation I examined this patient and my medical decision-making was reviewed with the Resident Physician. I agree with the documented findings, disposition and treatment plan as described except to the extent set forth below. We independently had [id number] contact with the patient Patient seen and examined at bedside Labs, radiology, chart personally reviewed. Impression: Acute on chronic hypoxic hypercapnic respiratory failure Pneumonia with concern for hospital associated organisms Pulmonary hypertension CHF ESRD Recs: Currently tolerating noninvasive ventilation with reassuring improvement in ABGs she is still at high risk for endotracheal intubation will need to be monitored closely agree with stepdown - encouragingly clinical course has improved since admission and now she is and weaned off bipap to nasal cannula She is being covered broadly for both community hospital associated pathogens which is appropriate can likely de-escalate over the next 24-48 hours recommend sending MRSA nasal swab the patient makes any urine it would be helpful to send for strep and legionella urine antigens Decompensated heart failure we need to optimize blood pressure and heart rate will also need to undergo volume removal with dialysis Dialysis per nephrology recommendations The etiology of her pulmonary hypertension appears to be secondary to 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 Per cardiology she was most to be investigated for a left heart catheterization in the past and can be considered based upon clinical course her mild troponin elevation days likely secondary to demand ischemia <Shawanda Dawn - Last Filed: 02/14/19 17:52> Date of Encounter: 02/14/19 Time of Encounter: 14:00 Assessment and Plan (1) Acute respiratory failure with hypoxia and hypercapnia Current Visit: Yes Status: Acute Presented to the ED complaining of acute onset of shortness of breath. At presentation oxygen saturation was in the low 70s. Not on home oxygen, no pericystic COPD and never smoker ABG showed pH of 7.16 with PCO2 of 80 Exacerbation likely secondary to pneumonia and underlying CHF Tolerated BiPAP repeat ABG had improved with pH of 7.35 PCO2 of 48 Currently comfortable and tolerating nasal cannula continue titrate to keep oxygen saturation above 90% given pneumonia -Continue to treat Pneumonia with broad-spectrum antibiotics given recent intubation and hospitalization -Would recommend using BiPAP overnight if requiring increased amount of supplemental oxygen -Recommend decreasing oral intake given concern for aspiration, elevate head of bed when eating (2) HCAP (healthcare-associated pneumonia) Current Visit: Yes Status: Acute Recently admitted to the hospital due to acute shortness of breath Chest x-ray shows pulmonary vascular congestion with right lower lobe consolidation Recently admitted to the hospital and discharged 11 days ago MRSA nasal swab pending Urine Legionella antigen and strep pneumonia antigen pending -Continue treatment with broad-spectrum antibiotics -Day 1 of vancomycin, Zosyn, Levaquin for MRSA and pseudomonal coverage -Continue Mucinex given chest congestion and nonproductive cough -Does not appear to have any wheezing and no history of COPD we benefit from when necessary DuoNeb -De-escalate antibiotic regimen based on clinical picture and depending on MRSA swab and urine antigens (3) Pulmonary hypertension, moderate to severe Current Visit: Yes Status: Acute Recent echo was on 01/27/19 which reported severe pulmonary hypertension Given the severe Group II pulmonary hypertension will likely continue to have underlying dyspnea (4) (HFpEF) heart failure with preserved ejection fraction Current Visit: Yes Status: Acute Presented to the ED complaining of shortness of breath. Chest x-ray does show pulmonary vascular congestion Recent echo was on 01/27/19 which showed EF of 45-50%, diastolic dysfunction with normal right ventricular structure and function Further recommendations per primary team Qualifiers: Heart failure chronicity: acute on chronic Qualified Code(s): I50.33 - Acute on chronic diastolic (congestive) heart failure (5) ESRD (end stage renal disease) Current Visit: Yes Status: Acute ESRD with GFR of 8 and creatinine of 6.10 On dialysis, with her schedule of Sunday due for dialysis today Removal of fluid may improve dyspnea History of Present Illness Consult date: 02/14/19 Requesting physician: Tom Kimball Reason for consult: dyspnea Chief complaint: Shortness of breath History of present illness: Ms. Waggoner is a 83-year-old female with past medical history hypertension, CAD, ESRD on dialysis, CVA, pulmonary hypertension who presented to the ED complaining of acute onset of shortness of breath. She reports the shortness of breath has been worsening for the past 3 days but worsened this morning. She had previously been admitted to the hospital on 01/27/19 for acute respiratory failure with hypoxia and hypercapnia and acute exacerbation of congestive heart failure and was discharged on 02/03/19. At presentation to the ED her oxygen saturation was in the 70s. She denied any fever but reported that she been having cough past few days which is nonproductive. She was started on nasal cannula continue to have low saturation. Her ABG showed pH of 7.16 with PCO2 of 80. Subsequently she was started on a BiPAP and her oxygen saturation continue to improve with 98% on the BiPAP. She hours later for repeat ABG showed pH of 7.35 with PCO2 of 48. She had a chest x-ray which showed pulmonary edema with atelectasis and right lower lobe consolidation. He was transferred to stepdown unit in a few hours after ad mission was tolerating liters of nasal cannula. She denied chest pain, abdominal pain, lower extremity edema, nausea or emesis. Past Med Surg Social Fam HX - Past Medical History Medical history: arthritis, CHF, COPD, CVA, diabetes, dialysis, GERD, hyperlipidemia, hypertension, myocardial infarction, renal disease, TIA, other Additional medical history: anemia. gout. OA Psychiatric history: anxiety, depression - Past Surgical History Surgical History: hysterectomy Additional surgical history: HD fistula SANTOS - Social History Smoking Status: Never smoker Smokeless Tobacco Status: No Alcohol use: none Drug use: none - Family History Mother Living Status: Hx Family Neurologic Disorders: Yes (Alzheimer's dementia) Father Living Status: Hx Family Neuromuscular Disorders: Yes (Hemorrhagic CVA) All Systems: The remainder of the systems were reviewed and are negative - Constitutional Constitutional: no chills, no fever(s), no weakness - EENT Eyes: no loss of peripheral vision, no loss of vision Nose, mouth and throat: no dysphagia, no hoarseness, no odynophagia, no sore throat - Cardiovascular Cardiovascular: no chest pain, no chest pain at rest, no palpitations - Respiratory Respiratory: cough, dyspnea, chest congestion, no hemoptysis, no pain on inspirtation - Gastrointestinal Gastrointestinal: no abdominal pain, no diarrhea, no hematemesis, no hematochezia - Genitourinary Genitourinary: no dysuria, no hematuria - Musculoskeletal Musculoskeletal: other, no weakness, no muscle weakness - Neurological Neurological: no focal weakness, no numbness, no paresthesias, no tremor(s) - Psychiatric Psychiatric: no anxiety, no depression Physical Examination Vital Signs: Vital Signs, Last 4 Hours Temp Pulse Resp BP Pulse Ox 02/14/19 12:10 97.6 F 85 19 162/70 94 02/14/19 11:50 15 145/81 02/14/19 11:21 16 130/57 100 02/14/19 11:19 16 100 General appearance: no acute distress, alert Eyes: nonicteric ENT: oropharynx moist Neck: supple Effort: mildly labored Auscultation: bilateral: diminished breath sounds (lower lung bases) Cardiovascular: regular rate and rhythm Gastrointestinal: hypoactive bowel sounds, soft, non-tender Extremities: no cyanosis, no edema, pulses normal Musculoskeletal: no deformities normal mental status, pupils equal and round, motor strength normal and symmetri c mood appropriate, affect normal Results - Laboratory Findings CBC and BMP: 02/14/19 06:21 02/14/19 06:21 ABG ABG pH 7.35 pH Units (7.32-7.45) D 02/14/19 10:09 ABG pCO2 48 mmHg (35-45) H D 02/14/19 10:09 ABG pO2 84 mmHg (85-104) L 02/14/19 10:09 ABG O2 Saturation 96 % (95-98) 02/14/19 10:09 PT/INR, D-dimer PT 12.2 Seconds (9.4-12.1) H 02/14/19 06:21 Abnormal lab findings: Abnormal lab results WBC 15.2 K/mcL (4.3-11.1) H 02/14/19 06:21 RBC 3.61 M/mcL (3.82-4.97) L 02/14/19 06:21 Hgb 11.1 g/dL (11.5-15.4) L 02/14/19 06:21 MCHC 30.7 g/dL (31.6-35.5) L 02/14/19 06:21 RDW 15.1 % (11.5-14.5) H 02/14/19 06:21 12.3 K/mcL (1.6-8.9) H 02/14/19 06:21 PT 12.2 Seconds (9.4-12.1) H 02/14/19 06:21 ABG pH 7.16 pH Units (7.32-7.45) L* 02/14/19 06:14 ABG pCO2 48 mmHg (35-45) H D 02/14/19 10:09 ABG pO2 84 mmHg (85-104) L 02/14/19 10:09 ABG HCO3 29 mEq/L (21-27) H 02/14/19 06:14 ABG Total CO2 28 mEq/L (20-26) H 02/14/19 10:09 ABG O2 Saturation 75 % (95-98) L 02/14/19 06:14 Chloride 96 mEq/L (98-107) L 02/14/19 06:21 BUN 48 mg/dL (8-23) H 02/14/19 06:21 6.10 mg/dL (0.60-1.20) H 02/14/19 06:21 Est GFR ( Amer) 8 (> 60) L 02/14/19 06:21 Est GFR (Non-Af Amer) 7 (> 60) L 02/14/19 06:21 Glucose 250 mg/dL (70-105) H 02/14/19 06:21 305 (280-300) H 02/14/19 06:21 Lactic Acid 2.5 mmol/L (0.5-2.2) H 02/14/19 13:30 119 Units/L (34-104) H 02/14/19 06:21 0.07 ng/mL (< 0.04) H* 02/14/19 13:30 B-Natriuretic Peptide 2729 pg/mL (Less than 100) H 02/14/19 06:21 3.6 g/dL (2.4-3.5) H 02/14/19 06:21 - Microbiology Findings Microbiology Findings: Microbiology, Last 48 Hours 02/14/19 08:41 Blood Culture - Preliminary Peripheral Venipuncture Culture is incubating and being continuously monitored for growth. Final report to follow. 02/14/19 06:21 Blood Culture - Preliminary Peripheral Venipuncture Culture is incubating and being continuously monitored for growth. Final report to follow. - Clinical Findings Intake & Output: Intake & Output 02/13/19 02/14/19 02/14/19 23:59 07:59 15:59 Intake Total 350 / 350 Balance 350 / 350 Weight 63.775 kg
[2019-02-14] MEDS ORDERED: 0.9 % Sodium Chloride 250 ML IVC PRN (14:40)
[2019-02-14] MEDS ORDERED: *HR* Heparin 10,000 UNIT/10 ML VIAL IV PRN (14:40)
[2019-02-14] MEDS ORDERED: 0.9 % Sodium Chloride 1,000 ML PRIME SCH (14:45)
[2019-02-14] MEDS: *HR* Heparin 5,000 UNIT/ML VIAL SQ SCH ×2 (15:17→20:30)
[2019-02-14] MEDS ORDERED: MethylPREDNISolone 40 MG/ML VIAL IVP SCH (16:00)
[2019-02-14] MEDS: Piperacillin/Tazobactam 3.375 GM in 0.9 % Sodium Chloride Mini Bag 100 ML IVPB SCH (20:30)
--- NOTE | 2019-02-14 23:05 | Nephrology Consult Note ---
Date of Encounter: 02/14/19 Time of Encounter: 15:00 Assessment and Plan (1) ESRD (end stage renal disease) Status: Acute Continue HD with UF goal of 2-3kg as tolerated Condition still gaurded (2) Acute respiratory failure with hypoxia and hypercapnia Status: Acute History of Present Illness - Reason for Consult Consult date: 02/14/19 end stage renal disease Requesting physician: Julio Parra - History of Present Illness 83 y o female with PMH OF COPD, pulmHTN, CHF, DM, HTN and ESRD on HD admitted with SOB.She was noted hypoxic in the ED requiring biPAP. Pt seen and examined on HD feels alittle better but still visibly dyspneic though able to speak. Pt was treated for PNA with abx. CXR showed pulm edema with possible superimposed ATX vs PNA. She denied any chest pain. No LE edema noted. Pt was recently admitt ed for similar symptoms and was transiently intubated for a day. Past Med Surg Social Fam HX - Past Medical History Medical history: arthritis, CHF, COPD, CVA, diabetes, dialysis, GERD, hyperlipidemia, hypertension, myocardial infarction, renal disease, TIA, other Additional medical history: anemia. gout. OA Psychiatric history: anxiety, depression - Past Surgical History Surgical History: hysterectomy Additional surgical history: HD fistula SANTOS - Social History Smoking Status: Never smoker Smokeless Tobacco Status: No Alcohol use: none Drug use: none - Family History Mother Living Status: Hx Family Neurologic Disorders: Yes (Alzheimer's dementia) Father Living Status: Hx Family Neuromuscular Disorders: Yes (Hemorrhagic CVA) Medications and Allergies Clopidogrel [Plavix] 75 mg PO DAILY 03/23/16 [History] Lansoprazole [Prevacid] 30 mg PO DAILY 03/23/16 [History] Simvastatin [Zocor] 10 mg PO DAILY 03/23/16 [History] Tizanidine HCl [Zanaflex] 2 mg PO HS 03/23/16 [History] Allopurinol [Zyloprim 100 MG] 100 mg PO DAILY 01/27/19 [History] B Complex W-C No.20/Folic Acid [Virt-Caps Softgel] 1 mg PO DAILY 01/27/19 [History] Cholecalciferol (D-3) [Vitamin D] 1,000 unit PO DAILY 01/27/19 [History] NIFEdipine XL (24 HR) [Procardia XL] 60 mg PO DAILY 01/27/19 [History] Pregabalin [Lyrica] 50 mg PO DAILY 01/27/19 [History] Sertraline [Zoloft] 50 mg PO DAILY 01/27/19 [History] hydrALAZINE [HydrALAZINE] 25 mg PO DAILY 01/27/19 [History] Isosorbide MONOnitrate (24 HR) [Imdur] 30 mg PO DAILY #30 tab.er.24h 02/03/19 [Rx] Metoprolol [Lopressor] 12.5 mg PO BID #15 tablet 02/03/19 [Rx] Albuterol Sulfate 2.5 mg IH QID PRN 02/14/19 [History] Aspirin Enteric Coated [Aspirin EC] 81 mg PO DAILY 02/14/19 [History] Sevelamer [Renvela] 800 mg PO TID 02/14/19 [History] Benzonatate [Tessalon] 200 mg PO TID PRN #60 capsule 02/17/19 [Rx] Budesonide/Formoterol 160/4.5 [Symbicort 160/4.5] 2 puff IH BIDR #20 inh 02/17/19 [Rx] levoFLOXacin [Levaquin] 750 mg PO Q48H 6 Days #3 tablet 02/17/19 [Rx] predniSONE [PredniSONE] 40 mg PO DAILY 5 Days #10 tablet 02/17/19 [Rx] Allergy/AdvReac Type Severity Reaction Status Date / Time No Known Allergies Allergy Verified 02/14/19 06:13 Review of Systems All Systems review (narrative): The rest of the systems are negative Constitutional: fatigue (admits) Cardiovascular: chest pain (denies), leg edema (denies) Respiratory: cough (admits), dyspnea (admits) Exam - Vital Signs Vital signs: Initial Vital Signs Pulse Ox 65 02/14/19 06:03 Vital Signs - Last 8 Hours Temp Pulse Resp BP Pulse Ox 02/14/19 20:10 98.9 F 89 18 112/71 93 02/14/19 19:15 97.9 F 18 124/57 02/14/19 19:00 114/54 02/14/19 18:45 139/65 02/14/19 18:30 143/72 02/14/19 18:15 148/74 02/14/19 18:00 137/71 02/14/19 17:45 129/62 02/14/19 17:30 137/62 02/14/19 17:15 151/67 02/14/19 17:00 144/74 02/14/19 16:45 141/66 02/14/19 16:30 169/77 02/14/19 16:15 166/75 02/14/19 16:00 156/77 02/14/19 15:45 169/52 02/14/19 15:30 21 177/76 Intake and Output 02/14/19 02/14/19 02/14/19 07:59 15:59 23:59 Intake Total 1120 / 1120 Output Total 3600 / 3600 Balance 1120 / -2480 -3600 / -2480 Intake: IV Fluids 500 / 500 Levaquin Premix 750mg/150 mL 150 / 150 750 mg In 150 ml @ 100 mls/hr IVPB Q48H [facility] Rx#:[id number] Zosyn 3.375 GM In 0.9 % Sodium 100 / 100 Chloride (Mini-Bag +) 100 ML @ 25 mls/hr IVPB ONCE ONE Rx#: [id number] Vancocin 1,000 MG In 0.9 % 250 / 250 Sodium Chloride 250 ML @ 167 mls/hr IVPB ONCE ONE Rx#: [id number] Oral 120 / 120 Intake, Rinseback and Flushes 500 / 500 Output: Urine 0 / 0 Total Dialysis (HD) Output 3600 / 3600 Other: Meal Dinner Percent of Meal Consumed 90% # Voids 1 # Bowel Movements 1 Weight 63.775 kg Hemodialysis Net Fluid Removed 250 3000 (mL) Patient Weight 02/14/19 23:59 Weight 63.775 kg - General Appearance General appearance: chronically ill (mild distress), fatigue, frail EENT: ATNC, mucous membranes moist Neck: no JVD, supple Respiratory: course breath sounds Cardiology: no edema, normal S1, normal S2 Gastrointestinal: no tenderness, no guarding Integumentary: warm and dry Neurologic: no focal deficit Musculoskeletal: no deformities Psychiatric: mood/affect appropriate Results - Lab Results 02/17/19 06:25 02/17/19 06:25 Consult Discharge Plan - Plan Referrals: Luke Gaviria MD [Partnered Physician] - NONE,PCP [Primary Care Provider] - Prescriptions: levoFLOXacin [Levaquin] 750 mg PO Q48H 6 Days #3 tablet predniSONE [PredniSONE] 40 mg PO DAILY 5 Days #10 tablet Budesonide/Formoterol 160/4.5 [Symbicort 160/4.5] 2 puff IH BIDR #20 inh Benzonatate [Tessalon] 200 mg PO TID PRN #60 capsule PRN Reason: Cough
[2019-02-15] MEDS: Ipratropium/Albuterol Neb 3 ML IH SCH ×6 (04:02→23:21)
[2019-02-15 04:18] LABS: Basophils % 0.1 %; Eosinophils # 0.1 K/mcL (0.0-0.6); Eosinophils % 0.5 %; Hematocrit 30.3 % (35.3-44.9); Immature Granulocytes % 0.5 % (0-4); Lymphocytes # 1.4 K/mcL (0.6-4.6); Lymphocytes % 8.8 %; Mean Corpuscular HGB Conc 31.4 g/dL (31.6-35.5); Mean Corpuscular Hemoglobin 30.6 pg (28.0-33.3); Mean Corpuscular Volume 97.7 fL (83.0-100.0); Mean Platelet Volume 11.2 fL (9.4-12.4); Monocytes # 1.1 K/mcL (0.0-1.3); Neutrophils # 12.8 K/mcL (1.6-8.9); Platelet Count 154 K/mcL (140-400); Segmented Neutrophils % 83.1 %
[2019-02-15 04:22] LABS: Hemoglobin 9.5 g/dL (11.5-15.4)
[2019-02-15 04:28] LABS: Albumin 3.6 g/dL (3.5-5.7); Albumin/Globulin Ratio 1.1 (1.1-2.2); Bilirubin,Total 0.4 mg/dL (0.3-1.0); Calcium 9.3 mg/dL (8.6-10.3); Globulin 3.4 g/dL (2.4-3.5); Potassium 4.7 mEq/L (3.5-5.1)
[2019-02-15] MEDS: Piperacillin/Tazobactam 3.375 GM in 0.9 % Sodium Chloride Mini Bag 100 ML IVPB SCH ×2 (06:06→19:25)
[2019-02-15] MEDS: *HR* Heparin 5,000 UNIT/ML VIAL SQ SCH ×3 (06:07→20:26)
--- NOTE | 2019-02-15 06:42 | Pulmonology Progress Note ---
Date of Encounter: 02/15/19 Time of Encounter: 08:00 Assessment and Plan (1) Pneumonia Current Visit: No Status: Suspected She is on broad-spectrum antibiotics with planned to de-escalate over the next 24-48 hours based upon cultures she will need to receive 7-10 days based upon clinical response I suspect she can safely be transitioned to by mouth agent the next 24 hours such as Augmentin if cultures remain negative Qualifiers: Pneumonia type: due to unspecified organism Laterality: bilateral Lung location: unspecified part of lung Qualified Code(s): J18.9 - Pneumonia, unspecified organism (2) Acute exacerbation of CHF (congestive heart failure) Current Visit: Yes Status: Acute Underwent dialysis yesterday overall improvement in respiratory status blood pressure is generally well-controlled Qualifiers: Heart failure type: diastolic Qualified Code(s): I50.33 - Acute on chronic diastolic (congestive) heart failure (3) Acute respiratory failure with hypoxia and hypercapnia Current Visit: Yes Status: Acute This is improving I suspect with the rapidity of improvement likely component of hydrostatic pulmonary edema complicated by acute infection and that she is back on nasal cannula O2 (4) ESRD (end stage renal disease) Current Visit: Yes Status: Acute Nephrology following dialysis per schedule (5) Pulmonary hypertension, moderate to severe Current Visit: Yes Status: Acute This is primarily secondary to group 2 pulmonary venous hypertension secondary to her heart conditions. She can be followed up in the pulmonary clinic to evaluate for any underlying COPD as she had exposures to the local [employer] where she worked for many years Pulmonary will sign off please call with any questions Subjective Principal diagnosis: Respiratory Failure Interval history: No acute events overnight remains hemodynamically stable weaned to nasal cannula O2 underwent dialysis patient says she is getting back to her baseline Objective PUL Vital signs: Last Vital Signs Temp 97.6 F 02/15/19 04:07 Pulse 74 02/15/19 04:07 Resp 17 02/15/19 04:07 BP 132/60 02/15/19 04:07 Pulse Ox 100 02/15/19 04:07 General appearance: no acute distress Eyes: nonicteric ENT: oropharynx moist Neck: supple Auscultation: bilateral: rales Cardiovascular: regular rate and rhythm Gastrointestinal: soft, non-tender Integumentary: normal Extremities: no edema Musculoskeletal: no deformities normal mental status, non-focal exam mood appropriate Results - Laboratory Findings CBC and BMP: 05/25/19 03:50 02/15/19 03:50 ABG ABG pH 7.35 pH Units (7.32-7.45) D 02/14/19 10:09 ABG pCO2 48 mmHg (35-45) H D 02/14/19 10:09 ABG pO2 84 mmHg (85-104) L 02/14/19 10:09 ABG O2 Saturation 96 % (95-98) 02/14/19 10:09 PT/INR, D-dimer PT 12.2 Seconds (9.4-12.1) H 02/14/19 06:21 Abnormal lab findings: Abnormal lab results WBC 15.4 K/mcL (4.3-11.1) H 02/15/19 03:50 RBC 3.10 M/mcL (3.82-4.97) L 02/15/19 03:50 Hgb 9.5 g/dL (11.5-15.4) L D 02/15/19 03:50 Hct 30.3 % (35.3-44.9) L 02/15/19 03:50 MCHC 31.4 g/dL (31.6-35.5) L 02/15/19 03:50 RDW 15.0 % (11.5-14.5) H 02/15/19 03:50 12.8 K/mcL (1.6-8.9) H 02/15/19 03:50 PT 12.2 Seconds (9.4-12.1) H 02/14/19 06:21 ABG pH 7.16 pH Units (7.32-7.45) L* 02/14/19 06:14 ABG pCO2 48 mmHg (35-45) H D 02/14/19 10:09 ABG pO2 84 mmHg (85-104) L 02/14/19 10:09 ABG HCO3 29 mEq/L (21-27) H 02/14/19 06:14 ABG Total CO2 28 mEq/L (20-26) H 02/14/19 10:09 ABG O2 Saturation 75 % (95-98) L 02/14/19 06:14 Chloride 96 mEq/L (98-107) L 02/14/19 06:21 Carbon Dioxide 31 mEq/L (23-29) H 02/15/19 03:50 BUN 32 mg/dL (8-23) H 02/15/19 03:50 3.81 mg/dL (0.60-1.20) H 02/15/19 03:50 Est GFR ( Amer) 14 (> 60) L 02/15/19 03:50 Est GFR (Non-Af Amer) 11 (> 60) L 02/15/19 03:50 Glucose 250 mg/dL (70-105) H 02/14/19 06:21 305 (280-300) H 02/14/19 06:21 Lactic Acid 2.5 mmol/L (0.5-2.2) H 02/14/19 13:30 119 Units/L (34-104) H 02/14/19 06:21 0.07 ng/mL (< 0.04) H* 02/14/19 22:09 B-Natriuretic Peptide 2729 pg/mL (Less than 100) H 02/14/19 06:21 3.6 g/dL (2.4-3.5) H 02/14/19 06:21 - Microbiology Findings Microbiology Findings: Microbiology, Last 48 Hours 02/14/19 08:41 Blood Culture - Preliminary Peripheral Venipuncture Culture is incubating and being continuously monitored for growth. Final report to follow. 02/14/19 06:21 Blood Culture - Preliminary Peripheral Venipuncture Culture is incubating and being continuously monitored for growth. Final report to follow. - Clinical Findings Intake & Output: Intake & Output 02/14/19 02/14/19 02/15/19 15:59 23:59 07:59 Intake Total 1120 / 1120 100 / 100 Output Total 3600 / 3600 Balance 1120 / -2480 -3600 / -2480 100 / 100 Weight 61.9 kg Consult Discharge Plan - Plan Referrals: NONE,PCP [Primary Care Provider] -
[2019-02-15] MEDS ORDERED: Menthol 9.1 MG LOZENGE PO PRN (07:32)
--- NOTE | 2019-02-15 07:36 | Internal Med Progress Note ---
Hospitalist Progress Note - Encounter Date of Encounter: 02/15/19 Time of Encounter: 07:30 - Subjective Interval History: Admitted for acute hypercapneic hypoxic respiratory failure. Improved this am - Exam Vitals: Temp Pulse Resp BP Pulse Ox 97.6 F 74 16 132/60 99 02/15/19 04:07 02/15/19 04:07 02/15/19 07:17 02/15/19 04:07 02/15/19 07:17 Exam: General appearance: Present: A&O X 3, no acute distress Head exam: Present: normocephalic Respiratory exam:Bilateral wheezes Cardiovascular exam: Present: RRR, +S1, +S2. Absent: diastolic murmur, gallop, rubs, systolic murmur GI/Abdominal exam: Soft, NT, ND, +BS Extremities exam: Absent: pedal edema Neurological exam: Present: alert, oriented X3, no focal deficits. Absent: altered - Assessment and Plan (1) Acute respiratory failure with hypoxia and hypercapnia Current Visit: Yes Status: Acute Assessment and Plan: Pt presented with acute hypoxic hypercapneic respiratory failure likely sec ondary to an HCAP, acute worsening of chronic diastolic CHF, severe pulmonary hypertension and possible COPD Improved on BiPAP, duo nebs, steroids ad antibiotics. Also had dialysis yesterday Has diffuse wheezes on exam. Will continue present management with antibiotics and steroids and breathing treatments (2) Sepsis Current Visit: Yes Status: Acute Assessment and Plan: Patient met sepsis criteria with leukocytosis 15.2, tachycardia 142, respiratory rate 28, and hospital acquired pneumonia as likely source of infection. Lactic acid 2.7 --> 3.1, repeat lactic acid level pending She was not given IV sepsis fluid bolus 30mg/kg due to ESRD on hemodialysis, BNP 2729, severe pulmonary hypertension, and pulmonary vascular congestion on CXR. Continue on antibiotics with vanc, zosyn and levaquin. Follow cultures (3) ESRD (end stage renal disease) on dialysis Current Visit: Yes Status: Acute Assessment and Plan: Patient on hemodialysis Nephrology following. Was dialyzed yesterday (4) (HFpEF) heart failure with preserved ejection fraction Current Visit: Yes Status: Acute Assessment and Plan: Echo 01/27/19 LVEF 45-50%, Moderate left ventricular diastolic dysfunction with tissue evidence of elevated filling pressures Normal right ventricular structure and function. Mild aortic regurgitation.Mild aortic stenosis. Moderate mitral regurgitation. Moderate tricuspid regurgitation. Severe pulmonary hypertension. Estimated RVSP is 70 mmHg. There is a small pericardial effusion without echocardiographic ev idence of tamponade, present. CXR revealed pulmonary edema BNP elevated 2729 Continue hemodialysis per schedule (5) Hypertension Current Visit: Yes Status: Chronic Assessment and Plan: Blood pressure stable. Continue close monitoring (6) Anemia Current Visit: Yes Status: Chronic Assessment and Plan: Hemoglobin of baseline. No signs of active bleeding Continue monitoring (7) HCAP (healthcare-associated pneumonia) Current Visit: Yes Status: Acute Assessment and Plan: Legionella and strep pneumo urine antigens pending, MRSA nasal swab pending, sputum culture pending. Continue empiric antibiotics (Vanc, Zosyn, Levaquin) De-escalate antibiotics based on culture results (8) Elevated troponin Current Visit: Yes Status: Acute Assessment and Plan: Patient with ESRD presents with troponin 0.06 EKG reveals no acute signs of ischemia Trend serial troponins (9) CAD (coronary artery disease) Current Visit: Yes Status: Acute Assessment and Plan: Continue aspirin and Plavix (10) Pulmonary hypertension, moderate to severe Current Visit: Yes Status: Acute Assessment and Plan: Echo 01/27/19 LVEF 45-50%, Moderate left ventricular diastolic dysfunction with tissue evidence of elevated filling pressures Normal right ventricular structure and function. Mild aortic regurgitation.Mild aortic stenosis. Moderate mitral regurgitation. Moderate tricuspid regurgitation. Severe pulmonary hypertension. Estimated RVSP is 70 mmHg. There is a small pericardial effusion without echocardiographic evidence of tamponade, present. CXR revealed pulmonary edema Resume hemodialysis (11) DVT prophylaxis Current Visit: Yes Status: Acute Assessment and Plan: Subcutaneous heparin TID - Time Spent with Patient Total time spent is greater than 50% in coordination of care (as documented) at patient's floor/unit and/or counseling patient: Internal Medicine: Result - Labs CBC & Chem 7: 02/15/19 03:50 02/15/19 03:50 Labs: Short CBC 02/15/19 Range/Units 03:50 WBC 15.4 H (4.3-11.1) K/mcL Hgb 9.5 L D (11.5-15.4) g/dL Hct 30.3 L (35.3-44.9) % Plt Count 154 (140-400) K/mcL Neutrophils # 12.8 H (1.6-8.9) K/mcL BMP 02/15/19 03:50 Sodium 139 Potassium 4.7 Chloride 98 Carbon Dioxide 31 H BUN 32 H Creatinine 3.81 H Glucose 105 Calcium 9.3 Cardiac Enzymes 02/14/19 02/14/19 Range/Units 13:30 22:09 Troponin I 0.07 H* 0.07 H* (< 0.04) ng/mL Liver Function 02/15/19 Range/Units 03:50 Total Bilirubin 0.4 (0.3-1.0) mg/dL AST 17 (13-39) Units/L ALT 10 (7-52) Units/L Alkaline Phosphatase 94 (34-104) Units/L Albumin 3.6 (3.5-5.7) g/dL - ABG Interpretation ABG results: ABG ABG pH 7.35 pH Units (7.32-7.45) D 02/14/19 10:09 ABG pCO2 48 mmHg (35-45) H D 02/14/19 10:09 ABG pO2 84 mmHg (85-104) L 02/14/19 10:09 ABG O2 Saturation 96 % (95-98) 02/14/19 10:09 PT/INR, D-dimer PT 12.2 Seconds (9.4-12.1) H 02/14/19 06:21 Consult Discharge Plan - Plan Referrals: NONE,PCP [Primary Care Provider] - ____ (2) Sepsis Qualifiers: Sepsis type: sepsis due to unspecified organism Qualified Code(s): A41.9 - Sepsis, unspecified organism (4) (HFpEF) heart failure with preserved ejection fraction Qualifiers: Heart failure chronicity: acute on chronic Qualified Code(s): I50.33 - Acute on chronic diastolic (congestive) heart failure (5) Hypertension Qualifiers: Hypertension type: essential hypertension Qualified Code(s): I10 - Essential (primary) hypertension (6) Anemia Qualifiers: Anemia type: due to chronic kidney disease Chronic kidney disease stage: on chronic dialysis Qualified Code(s): N18.6 - End stage renal disease; D63.1 - Anemia in chronic kidney disease; Z99.2 - Dependence on renal dialysis (9) CAD (coronary artery disease) Qualifiers: Coronary Disease-Associated Artery/Lesion type: [place] artery [place] vs. transplanted heart: [place] heart Associated angina: without angina Qualified Code(s): I25.10 - Atherosclerotic heart disease of [place] coronary artery without angina pectoris
[2019-02-15] MEDS: NIFEdipine XL (24 HR) 60 MG TAB.ER.24 PO SCH (07:45)
[2019-02-15] MEDS: Isosorbide MONOnitrate (24 HR) 30 MG TAB.ER.24H PO SCH (07:45)
[2019-02-15] MEDS: Pregabalin 50 MG CAPSULE PO SCH (07:45)
[2019-02-15] MEDS: Aspirin Enteric Coated 81 MG Tablet PO SCH (07:46)
[2019-02-15] MEDS ORDERED: Vancomycin 500 MG in 0.9 % Sodium Chloride Mini Bag 100 ML IVPB ONE (08:00)
[2019-02-15] MEDS ORDERED: Benzonatate 100 MG CAPSULE PO PRN (08:31)
[2019-02-15] MEDS: MethylPREDNISolone 40 MG/ML VIAL IVP SCH ×3 (10:30→23:28)
[2019-02-15] MEDS: GuaiFENesin Liq 200 MG/10 ML UDC PO SCH ×4 (10:30→23:28)
--- NOTE | 2019-02-15 11:04 | Nephrology Progress Note ---
Date of Encounter: 02/15/19 Time of Encounter: 12:00 - Assessment and Plan (1) ESRD (end stage renal disease) Current Visit: Yes Status: Acute (2) Acute respiratory failure with hypoxia and hypercapnia Current Visit: Yes Status: Acute Objective - Vital Signs Vital signs: Vital Signs Temp Pulse Resp BP Pulse Ox 02/15/19 07:42 97.8 F 79 16 141/61 98 02/15/19 07:17 16 99 02/15/19 04:07 97.6 F 74 17 132/60 100 02/15/19 04:02 18 98 02/14/19 23:54 99.0 F 80 16 131/61 97 02/14/19 23:33 18 98 02/14/19 20:10 98.9 F 89 18 112/71 93 02/14/19 19:15 97.9 F 18 124/57 02/14/19 19:00 114/54 02/14/19 18:45 139/65 02/14/19 18:30 143/72 02/14/19 18:15 148/74 02/14/19 18:00 137/71 02/14/19 17:45 129/62 02/14/19 17:30 137/62 02/14/19 17:15 151/67 02/14/19 17:00 144/74 02/14/19 16:45 141/66 02/14/19 16:30 169/77 02/14/19 16:15 166/75 02/14/19 16:00 156/77 02/14/19 15:45 169/52 02/14/19 15:30 21 177/76 02/14/19 12:10 97.6 F 85 19 162/70 94 02/14/19 11:50 15 145/81 02/14/19 11:21 16 130/57 100 02/14/19 11:19 16 100 Intake and Output 02/14/19 02/15/19 02/15/19 23:59 07:59 15:59 Intake Total 100 / 340 240 / 340 Output Total 3600 / 3600 Balance -3600 / -2480 100 / 340 240 / 340 Intake: IV Fluids 100 / 100 Zosyn 3.375 GM In 0.9 % Sodium 100 / 100 Chloride (Mini-Bag +) 100 ML @ 25 mls/hr IVPB Q12H [facility] Rx#: [id number] Oral 240 / 240 Output: Urine 0 / 0 Total Dialysis (HD) Output 3600 / 3600 Other: Meal Dinner Breakfast Percent of Meal Consumed 90% 100% # Voids 1 0 # Bowel Movements 1 Weight 61.9 kg Hemodialysis Net Fluid Removed 3000 (mL) Patient Weight 02/15/19 23:59 Weight 61.9 kg - Lab 02/15/19 03:50 02/15/19 03:50 Most recent lab results 02/15/19 03:50 Calcium 9.3 Consult Discharge Plan - Plan Referrals: NONE,PCP [Primary Care Provider] -
[2019-02-15] MEDS: Budesonide/Formoterol 160/4.5 1 PUFF INH IH SCH ×2 (11:23→20:37)
[2019-02-15] MEDS ORDERED: GuaiFENesin Liq 200 MG/10 ML UDC PO SCH (12:00)
--- NOTE | 2019-02-15 13:47 | Electrocardiograph Report ---
[place] [address] Test Date: 2019-02-14 Pat Name: Christina Waggoner Department: 110 Room: 2N09 Gender: F Nutrition Services Aide: : 1935 Requested By: Tom Kimball Order Number: [id number] Reading MD: Dylan Moreno Measurements Intervals [place] Rate: 86 P: 39 MT: 166 QRS: -7 QRSD: 89 T: 63 QT: 384 QTc: 427 Interpretive Statements SINUS RHYTHM LEFT VENTRICULAR HYPERTROPHY AND ST-T CHANGE [VOLTAGE CRITERIA PLUS ST/T ABNORMALITY] Electronically Signed On 02-15-2019 13:46:31 EDT by Dylan Moreno
--- NOTE | 2019-02-15 19:14 | Electrocardiograph Report ---
[facility] Test Date: 2019-02-14 Pat Name: Christina Waggoner Department: TRAUMA1 Room: 2N09 Gender: F Lean Manager: : 1935 Requested By: Jluio Parra Order Number: [id number] Reading MD: Winston Wong Measurements Intervals [place] Rate: 133 P: [place]: QRS: 182 QRSD: 97 T: 53 QT: 310 QTc: 462 Interpretive Statements Atrial fibrillation Consider left ventricular hypertrophy T abnormalities, lateral leads ST elevation, consider lateral injury Electronically Signed On 02-15-2019 19:13:07 EDT by Winston Wong
--- NOTE | 2019-02-15 19:14 | Electrocardiograph Report ---
[facility] Test Date: 2019-02-14 Pat Name: Christina Waggoner Department: TRAUMA1 Room: 2N09 Gender: F Regulatory Affairs Director: : 1935 Requested By: Julio Parra Order Number: [id number] Reading MD: Winston Wong Measurements Intervals [place] Rate: 76 P: 69 OK: 150 QRS: 28 QRSD: 104 T: 5 QT: 426 QTc: 479 Interpretive Statements Sinus rhythm Borderline ST depression, anterolateral leads, consider ischemia Minimal ST elevation, anterior leads Electronically Signed On 02-15-2019 19:13:34 EDT by Winston Wong
[2019-02-16 03:54] LABS: Basophils % 0.1 %; Hematocrit 29.1 % (35.3-44.9); Hemoglobin 9.4 g/dL (11.5-15.4); Immature Granulocytes % 0.4 % (0-4); Lymphocytes # 0.5 K/mcL (0.6-4.6); Lymphocytes % 3.8 %; Mean Corpuscular HGB Conc 32.3 g/dL (31.6-35.5); Mean Corpuscular Hemoglobin 31.2 pg (28.0-33.3); Mean Corpuscular Volume 96.7 fL (83.0-100.0); Monocytes # 0.2 K/mcL (0.0-1.3); Monocytes % 1.3 %; Neutrophils # 13.4 K/mcL (1.6-8.9); Platelet Count 183 K/mcL (140-400); Red Blood Count 3.01 M/mcL (3.82-4.97); Red Cell Distribution Width 15.1 % (11.5-14.5); Segmented Neutrophils % 94.4 %
[2019-02-16] MEDS: Ipratropium/Albuterol Neb 3 ML IH SCH ×6 (04:05→23:59)
[2019-02-16 04:13] LABS: Calcium 9.3 mg/dL (8.6-10.3); Magnesium 2.3 mg/dL (1.6-2.6); Phosphorous 5.2 mg/dL (2.7-4.5)
[2019-02-16] MEDS: *HR* Heparin 5,000 UNIT/ML VIAL SQ SCH ×3 (06:03→23:40)
[2019-02-16] MEDS: GuaiFENesin Liq 200 MG/10 ML UDC PO SCH ×4 (06:03→23:40)
[2019-02-16] MEDS: Piperacillin/Tazobactam 3.375 GM in 0.9 % Sodium Chloride Mini Bag 100 ML IVPB SCH ×2 (06:03→18:43)
[2019-02-16] MEDS: Aspirin Enteric Coated 81 MG Tablet PO SCH (07:40)
[2019-02-16] MEDS: NIFEdipine XL (24 HR) 60 MG TAB.ER.24 PO SCH (07:40)
[2019-02-16] MEDS: Isosorbide MONOnitrate (24 HR) 30 MG TAB.ER.24H PO SCH (07:40)
[2019-02-16] MEDS: Pregabalin 50 MG CAPSULE PO SCH (07:40)
[2019-02-16] MEDS: MethylPREDNISolone 40 MG/ML VIAL IVP SCH (07:42)
[2019-02-16] MEDS: Budesonide/Formoterol 160/4.5 1 PUFF INH IH SCH ×2 (07:48→20:03)
--- NOTE | 2019-02-16 09:10 | Internal Med Progress Note ---
Hospitalist Progress Note - Encounter Date of Encounter: 02/16/19 Time of Encounter: 11:00 - Subjective Interval History: no acute events overnight - Exam Vitals: Temp Pulse Resp BP Pulse Ox 98.3 F 82 16 147/67 97 02/16/19 04:40 02/16/19 04:40 02/16/19 07:48 02/16/19 04:40 02/16/19 07:48 Exam: General appearance: Present: A&O X 3, no acute distress Head exam: Present: normocephalic Respiratory exam:Bilateral wheezes Cardiovascular exam: Present: RRR, +S1, +S2. Absent: diastolic murmur, gallop, rubs, systolic murmur GI/Abdominal exam: Soft, NT, ND, +BS Extremities exam: Absent: pedal edema Neurological exam: Present: alert, oriented X3, no focal deficits. Absent: altered - Assessment and Plan (1) Acute respiratory failure with hypoxia and hypercapnia Current Visit: Yes Status: Acute Assessment and Plan: Pt presented with acute hypoxic hypercapneic respiratory failure likely secondary to an HCAP, acute worsening of chronic diastolic CHF, severe pulmonary hypertension and possible COPD Improved on BiPAP, duo nebs, steroids ad antibiotics. Also had dialysis yesterday Has diffuse wheezes on exam. Will continue present management with antibiotics and steroids and breathing treatments Wean down steroids to po (2) Sepsis Current Visit: Yes Status: Acute Assessment and Plan: Patient met sepsis criteria with leukocytosis 15.2, tachycardia 142, respiratory rate 28, and hospital acquired pneumonia as likely source of infection. Lactic acid 2.7 --> 3.1, repeat lactic acid level pending She was not given IV sepsis fluid bolus 30mg/kg due to ESRD on hemodialysis, BNP 2729, severe pulmonary hypertension, and pulmonary vascular congestion on CXR. Continue on antibiotics with vanc, zosyn and levaquin. Follow cultures (3) ESRD (end stage renal disease) on dialysis Current Visit: Yes Status: Acute Assessment and Plan: Patient on hemodialysis Nephrology following. Was dialyzed yesterday (4) (HFpEF) heart failure with preserved ejection fraction Current Visit: Yes Status: Acute Assessment and Plan: Echo 01/27/19 LVEF 45-50%, Moderate left ventricular diastolic dysfunction with tissue evidence of elevated filling pressures Normal right ventricular structure and function. Mild aortic regurgitation.Mild aortic stenosis. Moderate mitral regurgitation. Moderate tricuspid regurgitation. Severe pulmonary hypertension. Estimated RVSP is 70 mmHg. There is a small pericardial effusion without echocardiographic evidence of tamponade, present. CXR revealed pulmonary edema BNP elevated 2729 Continue hemodialysis per schedule (5) Hypertension Current Visit: Yes Status: Chronic Assessment and Plan: Blood pressure stable. Continue close monitoring (6) Anemia Current Visit: Yes Status: Chronic Assessment and Plan: Hemoglobin of baseline. No signs of active bleeding Continue monitoring (7) HCAP (healthcare-associated pneumonia) Current Visit: Yes Status: Acute Assessment and Plan: Legionella and strep pneumo urine antigens pending, MRSA nasal swab pending, sputum culture pending. Continue empiric antibiotics (Vanc, Zosyn, Levaquin) De-escalate antibiotics based on culture results (8) Elevated troponin Current Visit: Yes Status: Acute Assessment and Plan: Patient with ESRD presents with troponin 0.06 EKG reveals no acute signs of ischemia Trend serial troponins (9) CAD (coronary artery disease) Current Visit: Yes Status: Acute Assessment and Plan: Continue aspirin and Plavix (10) Pulmonary hypertension, moderate to severe Current Visit: Yes Status: Acute Assessment and Plan: Echo 01/27/19 LVEF 45-50%, Moderate left ventricular diastolic dysfunction with tissue evidence of elevated filling pressures Normal right ventricular structure and function. Mild aortic regurgitation.Mild aortic stenosis. Moderate mitral regurgitation. Moderate tricuspid regurgitation. Severe pulmonary hypertension. Estimated RVSP is 70 mmHg. There is a small pericardial effusion without echocardiographic evidence of tamponade, present. CXR revealed pulmonary edema Resume hemodialysis (11) DVT prophylaxis Current Visit: Yes Status: Acute Assessment and Plan: Subcutaneous heparin TID - Time Spent with Patient Total time spent is greater than 50% in coordination of care (as documented) at patient's floor/unit and/or counseling patient: Internal Medicine: Result - Labs CBC & Chem 7: 02/16/19 03:40 02/16/19 03:40 Labs: Short CBC 02/16/19 Range/Units 03:40 WBC 14.2 H (4.3-11.1) K/mcL Hgb 9.4 L (11.5-15.4) g/dL Hct 29.1 L (35.3-44.9) % Plt Count 183 (140-400) K/mcL Neutrophils # 13.4 H (1.6-8.9) K/mcL BMP 02/16/19 03:40 Sodium 136 Potassium 5.0 Chloride 94 L Carbon Dioxide 27 BUN 67 H Creatinine 5.67 H Glucose 132 H Calcium 9.3 - ABG Interpretation ABG results: ABG ABG pH 7.35 pH Units (7.32-7.45) D 02/14/19 10:09 ABG pCO2 48 mmHg (35-45) H D 02/14/19 10:09 ABG pO2 84 mmHg (85-104) L 02/14/19 10:09 ABG O2 Saturation 96 % (95-98) 02/14/19 10:09 PT/INR, D-dimer PT 12.2 Seconds (9.4-12.1) H 02/14/19 06:21 Consult Discharge Plan - Plan Referrals: NONE,PCP [Primary Care Provider] - (2) Sepsis Qualifiers: Sepsis type: sepsis due to unspecified organism Qualified Code(s): A41.9 - Sepsis, unspecified organism (4) (HFpEF) heart failure with preserved ejection fraction Qualifiers: Heart failure chronicity: acute on chronic Qualified Code(s): I50.33 - Acute on chronic diastolic (congestive) heart failure (5) Hypertension Qualifiers: Hypertension type: essential hypertension Qualified Code(s): I10 - Essential (primary) hypertension (6) Anemia Qualifiers: Anemia type: due to chronic kidney disease Chronic kidney disease stage: on chronic dialysis Qualified Code(s): N18.6 - End stage renal disease; D63.1 - Anemia in chronic kidney disease; Z99.2 - Dependence on renal dialysis (9) CAD (coronary artery disease) Qualifiers: Coronary Disease-Associated Artery/Lesion type: [place] artery [place] vs. transplanted heart: [place] heart Associated angina: without angina Qualified Code(s): I25.10 - Atherosclerotic heart disease of [place] coronary artery without angina pectoris
[2019-02-16] MEDS: Levofloxacin 750 MG/150 ML 750 MG/150 ML BAG IVPB SCH (10:47)
--- NOTE | 2019-02-16 23:34 | Nephrology Progress Note ---
Date of Encounter: 02/16/19 - Assessment and Plan (1) ESRD (end stage renal disease) Current Visit: Yes Status: Acute (2) Acute respiratory failure with hypoxia and hypercapnia Current Visit: Yes Status: Acute Subjective Principal diagnosis: Respiratory Failure Objective - Vital Signs Vital signs: Vital Signs Temp Pulse Resp BP Pulse Ox 02/16/19 23:31 98.1 F 70 16 139/71 96 02/16/19 20:35 78 02/16/19 20:06 16 97 02/16/19 19:11 98.3 F 78 18 146/85 95 02/16/19 16:31 98.3 F 84 16 142/62 98 02/16/19 15:29 14 97 02/16/19 11:30 98.5 F 77 14 106/69 98 02/16/19 11:12 16 99 02/16/19 07:48 16 97 02/16/19 07:30 98.1 F 84 84 153/67 99 02/16/19 04:40 98.3 F 82 16 147/67 99 02/16/19 04:05 15 100 02/16/19 00:33 98.0 F 84 15 146/66 98 Intake and Output 02/16/19 02/16/19 02/16/19 07:59 15:59 23:59 Intake Total 100 / 1040 700 / 1040 240 / 1040 Output Total 200 / 200 Balance 100 / 840 700 / 840 40 / 840 Intake: IV Fluids 100 / 100 Zosyn 3.375 GM In 0.9 % Sodium 100 / 100 Chloride (Mini-Bag +) 100 ML @ 25 mls/hr IVPB Q12H REPLACED BY [facility] Rx#: [id number] Oral 100 / 940 600 / 940 240 / 940 Output: Urine 200 / 200 Other: Meal Lunch Dinner Percent of Meal Consumed 100% 95% Weight 61.9 kg Patient Weight 02/16/19 23:59 Weight 61.9 kg - Lab 02/16/19 03:40 02/16/19 03:40 Consult Discharge Plan - Plan Referrals: NONE,PCP [Primary Care Provider] -
[2019-02-17] MEDS: Ipratropium/Albuterol Neb 3 ML IH SCH ×4 (04:18→15:41)
[2019-02-17] MEDS: GuaiFENesin Liq 200 MG/10 ML UDC PO SCH ×2 (06:13→14:34)
[2019-02-17] MEDS: *HR* Heparin 5,000 UNIT/ML VIAL SQ SCH ×2 (06:13→14:34)
[2019-02-17 06:37] LABS: Basophils % 0.2 %; Eosinophils # 0.3 K/mcL (0.0-0.6); Eosinophils % 1.7 %; Hematocrit 27.3 % (35.3-44.9); Hemoglobin 8.6 g/dL (11.5-15.4); Immature Granulocytes % 0.5 % (0-4); Lymphocytes # 2.2 K/mcL (0.6-4.6); Lymphocytes % 11.9 %; Mean Corpuscular HGB Conc 31.5 g/dL (31.6-35.5); Mean Corpuscular Hemoglobin 30.6 pg (28.0-33.3); Mean Corpuscular Volume 97.2 fL (83.0-100.0); Mean Platelet Volume 10.9 fL (9.4-12.4); Monocytes # 1.1 K/mcL (0.0-1.3); Neutrophils # 14.8 K/mcL (1.6-8.9); Platelet Count 206 K/mcL (140-400); Red Blood Count 2.81 M/mcL (3.82-4.97); Segmented Neutrophils % 79.7 %
[2019-02-17 06:55] LABS: Magnesium 2.2 mg/dL (1.6-2.6); Phosphorous 7.2 mg/dL (2.7-4.5); Potassium 4.9 mEq/L (3.5-5.1)
[2019-02-17] MEDS: Budesonide/Formoterol 160/4.5 1 PUFF INH IH SCH (07:20)
--- NOTE | 2019-02-17 07:46 | Discharge Summary ---
Date of Encounter: 02/17/19 Time of Encounter: 09:00 - Discharge Diagnosis (1) Acute respiratory failure with hypoxia and hypercapnia Priority: Primary Status: Acute Assessment and Plan: 83 year old female with a past medical history of hypertension, CAD, end-stage renal disease on dialysis, and severe pulmonary hypertension who presented to the ED in acute respiratory distress. Patient has difficulty answering questions due to current medical condition and is currently on BiPAP. History of present was was obtained from the medical record. Patient is A&O 3 and requests to remains full code at this time. In the ED, patient's initial vital signs showed pulse ox 65% and tachycardia 142, she was placed on BiPAP. ABG revealed pH 7.16, PCO2 80, PO2 53, SPO2 75%, CXR revealed pulmonary edema with possible superimposed atelectasis or pneumonia in the right base. Patient had leukocytosis 15.2 and was started on empiric antibiotics for hospital acquired for pneumonia She was assessed with acute hypoxic hypercapneic respiratory failure likely secondary to sepssi 2/2 to HCAP, acute worsening of chronic diastolic CHF, severe pulmonary hypertension and possible COPD. She improved on BiPAP, duo nebs, steroids and antibiotics and dialysis. She was able to be weaned off oxygen to room air, and weaned off IV steroids to po steroids. She was discharged in a stable condition. She will need to follow up with pulmonary for outpatient PFTs. 35 minutes was spent discharging this patient (2) Sepsis Priority: Primary Status: Acute Assessment and Plan: Patient met sepsis criteria with leukocytosis 15.2, tachycardia 142, respiratory rate 28, and hospital acquired pneumonia as likely source of infection. Lactic acid 2.7 --> 3.1, repeat lactic acid level pending She was not given IV sepsis fluid bolus 30mg/kg due to ESRD on hemodialysis, BNP 2729, severe pulmonary hypertension, and pulmonary vascular congestion on CXR. Continue on antibiotics with vanc, zosyn and levaquin. Follow cultures Qualifiers: Sepsis type: sepsis due to unspecified organism Qualified Code(s): A41.9 - Sepsis, unspecified organism (3) ESRD (end stage renal disease) on dialysis Priority: Primary Status: Acute (4) (HFpEF) heart failure with preserved ejection fraction Priority: Primary Status: Acute Qualifiers: Heart failure chronicity: acute on chronic Qualified Code(s): I50.33 - Acute on chronic diastolic (congestive) heart failure (5) Hypertension Priority: Primary Status: Chronic Qualifiers: Hypertension type: essential hypertension Qualified Code(s): I10 - Essential (primary) hypertension (6) Anemia Priority: Primary Status: Chronic Qualifiers: Anemia type: due to chronic kidney disease Chronic kidney disease stage: on chronic dialysis Qualified Code(s): N18.6 - End stage renal disease; D63.1 - Anemia in chronic kidney disease; Z99.2 - Dependence on renal dialysis (7) HCAP (healthcare-associated pneumonia) Priority: Primary Status: Acute (8) Elevated troponin Priority: Primary Status: Acute (9) CAD (coronary artery disease) Priority: Primary Status: Acute Qualifiers: Coronary Disease-Associated Artery/Lesion type: [place] artery [place] vs. transplanted heart: viejas heart Associated angina: without angina Qualified Code(s): I25.10 - Atherosclerotic heart disease of viejas coronary artery without angina pectoris (10) Pulmonary hypertension, moderate to severe Priority: Primary Status: Acute (11) DVT prophylaxis Priority: Primary Status: Acute Hospital course: Ms. Waggoner is a 83 year old female - Time Spent with Patient Total time spent providing and/or coordinating discharge services: - Discharge Medications Prescriptions: New predniSONE [PredniSONE] 40 mg PO DAILY 5 Days #10 tablet Benzonatate [Tessalon] 200 mg PO TID PRN #60 capsule PRN Reason: Cough Budesonide/Formoterol 160/4.5 [Symbicort 160/4.5] 2 puff IH BIDR #20 inh levoFLOXacin [Levaquin] 750 mg PO Q48H 6 Days #3 tablet Continued Lansoprazole [Prevacid] 30 mg PO DAILY Clopidogrel [Plavix] 75 mg PO DAILY Tizanidine HCl [Zanaflex] 2 mg PO HS Simvastatin [Zocor] 10 mg PO DAILY Allopurinol [Zyloprim 100 MG] 100 mg PO DAILY hydrALAZINE [HydrALAZINE] 25 mg PO DAILY NIFEdipine XL (24 HR) [Procardia XL] 60 mg PO DAILY Cholecalciferol (D-3) [Vitamin D] 1,000 unit PO DAILY Sertraline [Zoloft] 50 mg PO DAILY Pregabalin [Lyrica] 50 mg PO DAILY B Complex W-C No.20/Folic Acid [Virt-Caps Softgel] 1 mg PO DAILY Isosorbide MONOnitrate (24 HR) [Imdur] 30 mg PO DAILY #30 tab.er.24h Metoprolol [Lopressor] 12.5 mg PO BID #15 tablet Albuterol Sulfate 2.5 mg IH QID PRN PRN Reason: Shortness Of Breath Aspirin Enteric Coated [Aspirin EC] 81 mg PO DAILY Sevelamer [Renvela] 800 mg PO TID Home Medications: Clopidogrel [Plavix] 75 mg PO DAILY 03/23/16 [History] Lansoprazole [Prevacid] 30 mg PO DAILY 03/23/16 [History] Simvastatin [Zocor] 10 mg PO DAILY 03/23/16 [History] Tizanidine HCl [Zanaflex] 2 mg PO HS 03/23/16 [History] Allopurinol [Zyloprim 100 MG] 100 mg PO DAILY 01/27/19 [History] B Complex W-C No.20/Folic Acid [Virt-Caps Softgel] 1 mg PO DAILY 01/27/19 [History] Cholecalciferol (D-3) [Vitamin D] 1,000 unit PO DAILY 01/27/19 [History] NIFEdipine XL (24 HR) [Procardia XL] 60 mg PO DAILY 01/27/19 [History] Pregabalin [Lyrica] 50 mg PO DAILY 01/27/19 [History] Sertraline [Zoloft] 50 mg PO DAILY 01/27/19 [History] hydrALAZINE [HydrALAZINE] 25 mg PO DAILY 01/27/19 [History] Isosorbide MONOnitrate (24 HR) [Imdur] 30 mg PO DAILY #30 tab.er.24h 02/03/19 [Rx] Metoprolol [Lopressor] 12.5 mg PO BID #15 tablet 02/03/19 [Rx] Albuterol Sulfate 2.5 mg IH QID PRN 02/14/19 [History] Aspirin Enteric Coated [Aspirin EC] 81 mg PO DAILY 02/14/19 [History] Sevelamer [Renvela] 800 mg PO TID 02/14/19 [History] Benzonatate [Tessalon] 200 mg PO TID PRN #60 capsule 02/17/19 [Rx] Budesonide/Formoterol 160/4.5 [Symbicort 160/4.5] 2 puff IH BIDR #20 inh 02/17/19 [Rx] levoFLOXacin [Levaquin] 750 mg PO Q48H 6 Days #3 tablet 02/17/19 [Rx] predniSONE [PredniSONE] 40 mg PO DAILY 5 Days #10 tablet 02/17/19 [Rx] Allergies/Adverse Reactions: Allergy/AdvReac Type Severity Reaction Status Date / Time No Known Allergies Allergy Verified 02/14/19 06:13 Date of admission: 02/15/19 07:33 Primary care physician: PCP NONE Consults: 02/14/19 07:04 Consult to Nephrology [CONS] Stat Consulting Provider: [facility]/CRISTAL/WILD/CHIOMA Reason for Consult: HD Call Completed: Yes 02/14/19 09:42 Consult to Pulmonology [CONS] Stat Consulting Provider: [facility] Reason for Consult: Acute hypoxic and hypercapnic resp failure, HCAP Time Notified: 09:43 Call Completed: Yes 02/14/19 09:52 Consult to Occupational Therapy [CONS] Routine Comment: Evaluate, develop and implement POC Reason for Consult: Weakness Does patient have active BEDREST order?: No Is patient medically & hemodynamically stable?: Yes Patient assessed for mobility or mobilized this visit?: No Consult to Physical Therapy [CONS] Routine Comment: Evaluate, develop and implement POC Reason for Consult: Weakness Does patient have active BEDREST order?: No Is patient medically & hemodynamically stable?: Yes Patient assessed for mobility or mobilized this visit?: No 02/14/19 12:54 Consult to Invasive Line Access Team [CONS] Routine Reason for Consult: limited vascular access Line Type: EPIV 02/14/19 14:45 Consult to Dialysis [CONS] ONCE - Constitutional Vitals: Temp Pulse Resp BP Pulse Ox 98.8 F 73 16 140/65 98 02/17/19 06:51 02/17/19 06:51 02/17/19 07:20 02/17/19 06:51 02/17/19 07:20 General appearance: Present: cooperative, answers questions appropriately Exam: General appearance: Present: A&O X 3, no acute distress Head exam: Present: normocephalic Respiratory exam:Bilateral wheezes Cardiovascular exam: Present: RRR, +S1, +S2. Absent: diastolic murmur, gallop, rubs, systolic murmur GI/Abdominal exam: Soft, NT, ND, +BS Extremities exam: Absent: pedal edema Neurological exam: Present: alert, oriented X3, no focal deficits. Absent: altered - Patient Status Disposition: Transfer SNF Condition: Good - Discharge Instructions Follow Up With: NONE,PCP [Primary Care Provider] -
[2019-02-17] MEDS ORDERED: *HR* Heparin 10,000 UNIT/10 ML VIAL IV PRN (08:23)
[2019-02-17] MEDS ORDERED: 0.9 % Sodium Chloride 250 ML IVC PRN (08:23)
[2019-02-17] MEDS: Pregabalin 50 MG CAPSULE PO SCH (08:54)
[2019-02-17] MEDS: Aspirin Enteric Coated 81 MG Tablet PO SCH (08:54)
[2019-02-17] MEDS: Piperacillin/Tazobactam 3.375 GM in 0.9 % Sodium Chloride Mini Bag 100 ML IVPB SCH (08:55)
[2019-02-17] MEDS ORDERED: predniSONE 20 MG TABLET PO SCH (09:00)
--- NOTE | 2019-02-17 12:24 | Physician Discharge Referral ---
- Diagnosis (1) Acute respiratory failure with hypoxia and hypercapnia Priority: Primary Status: Acute (2) Sepsis Priority: Primary Status: Acute (3) ESRD (end stage renal disease) on dialysis Priority: Primary Status: Acute (4) (HFpEF) heart failure with preserved ejection fraction Priority: Primary Status: Acute (5) Hypertension Priority: Primary Status: Chronic (6) Anemia Priority: Primary Status: Chronic (7) HCAP (healthcare-associated pneumonia) Priority: Primary Status: Acute (8) Elevated troponin Priority: Primary Status: Acute (9) CAD (coronary artery disease) Priority: Primary Status: Acute (10) Pulmonary hypertension, moderate to severe Priority: Primary Status: Acute (11) DVT prophylaxis Priority: Primary Status: Acute - Transfer Medications Prescriptions: levoFLOXacin [Levaquin] 750 mg PO Q48H 6 Days #3 tablet predniSONE [PredniSONE] 40 mg PO DAILY 5 Days #10 tablet Budesonide/Formoterol 160/4.5 [Symbicort 160/4.5] 2 puff IH BIDR #20 inh Benzonatate [Tessalon] 200 mg PO TID PRN #60 capsule PRN Reason: Cough Home Medications: Clopidogrel [Plavix] 75 mg PO DAILY 03/23/16 [History] Lansoprazole [Prevacid] 30 mg PO DAILY 03/23/16 [History] Simvastatin [Zocor] 10 mg PO DAILY 03/23/16 [History] Tizanidine HCl [Zanaflex] 2 mg PO HS 03/23/16 [History] Allopurinol [Zyloprim 100 MG] 100 mg PO DAILY 01/27/19 [History] B Complex W-C No.20/Folic Acid [Virt-Caps Softgel] 1 mg PO DAILY 01/27/19 [History] Cholecalciferol (D-3) [Vitamin D] 1,000 unit PO DAILY 01/27/19 [History] NIFEdipine XL (24 HR) [Procardia XL] 60 mg PO DAILY 01/27/19 [History] Pregabalin [Lyrica] 50 mg PO DAILY 01/27/19 [History] Sertraline [Zoloft] 50 mg PO DAILY 01/27/19 [History] hydrALAZINE [HydrALAZINE] 25 mg PO DAILY 01/27/19 [History] Isosorbide MONOnitrate (24 HR) [Imdur] 30 mg PO DAILY #30 tab.er.24h 02/03/19 [Rx] Metoprolol [Lopressor] 12.5 mg PO BID #15 tablet 02/03/19 [Rx] Albuterol Sulfate 2.5 mg IH QID PRN 02/14/19 [History] Aspirin Enteric Coated [Aspirin EC] 81 mg PO DAILY 02/14/19 [History] Sevelamer [Renvela] 800 mg PO TID 02/14/19 [History] Benzonatate [Tessalon] 200 mg PO TID PRN #60 capsule 02/17/19 [Rx] Budesonide/Formoterol 160/4.5 [Symbicort 160/4.5] 2 puff IH BIDR #20 inh 02/17/19 [Rx] levoFLOXacin [Levaquin] 750 mg PO Q48H 6 Days #3 tablet 02/17/19 [Rx] predniSONE [PredniSONE] 40 mg PO DAILY 5 Days #10 tablet 02/17/19 [Rx] Allergies/Adverse Reactions: Allergy/AdvReac Type Severity Reaction Status Date / Time No Known Allergies Allergy Verified 02/14/19 06:13 - Respiratory Orders Smoking Cessation: Smoking cessation has been advised. For more information, call the [place] Tobacco Quit Line at 7-874-ZGWY-NOW. - Mobility Orders Ambulate - Rehabiliation Orders Rehab Orders: Evaluation for Physical Therapy CERTIFICATION: I certify that the transfer of the above named patient to an Extended Care Facility is necessary for the continuing treatment of the diagnosis listed. The above information is true and accurate reflection of patient's current condition. Confidential - Redisclosure prohibited without a patient's written consent.
[2019-02-17] MEDS: Isosorbide MONOnitrate (24 HR) 30 MG TAB.ER.24H PO SCH (14:34)
[2019-02-17] MEDS: NIFEdipine XL (24 HR) 60 MG TAB.ER.24 PO SCH (14:34)
[2019-02-17 15:18] VITALS: BP 141/52
[2019-02-17] MEDS ORDERED: Aminoglycoside Consult 1 EACH MC ONE (17:43)
== END 2019-02-17 17:44 | DRG 871 ==
LOC: 2NNU 05:56 → EMEROOARM 05:56 → 2NNU 11:52
PROVIDERS: ADMIT Internal Medicine Nephrology; ATTEND Internal Medicine Nephrology